=== PATIENT | female | born 1990 | race Caucasian/White ===

== ENCOUNTER 2023-06-14 21:31 | Emergency (ER) | payer MEDICARE, MEDICAID, SELFPAY ==
--- NOTE | ~2023-06-14 | CT_ITS ---
EXAMINATION: CT HEAD WITHOUT CONTRAST CT CERVICAL WITHOUT CONTRAST CLINICAL INFORMATION: Fall. Head strike. COMPARISON: None available. TECHNIQUE: Contiguous axial imaging was performed through the head and cervical spine without intravenous administration of contrast. Sagittal and coronal reformatted images also obtained. This CT examination was performed using dose optimization techniques as appropriate, variously including the following: *Automated exposure control *Adjustment of mA and/or kV according to patient size (this includes techniques or standardized protocols for targeted exams where dose is matched to indication/reason for exam; i.e. extremities or head) *Use of iterative reconstruction technique DLP: 1154 mGy-cm FINDINGS: A right CVP shunt catheter terminates in the region of the anterior right third ventricle. The right lateral ventricle is small in size. The left lateral ventricle appears to be within normal limits. The fourth ventricle is midline. The cortical sulci and basal cisterns are normally outlined. There is no acute territorial defect, hemorrhage or midline shift. The extra-axial spaces are unremarkable. Calvarium: Intact. Maxillofacial sinuses and mastoids: Clear as visualized. Cervical spine: There is mild reversal of the expected cervical spine curvature. There is mild C3-C4 to C6-C7 cervical disc degenerative change with mild loss of disc space, minimal endplate change and posterior osteophytes with mild diffuse facet osteoarthritic hypertrophic change with multilevel mild spinal canal narrowing. There is no fracture. The soft tissues are unremarkable. The visualized upper lung velazquez are clear. CT/CT cervical spine wo IV con IMPRESSION: No acute intracranial pathology. Mild cervical and facet degenerative change with mild reversal of the expected cervical spine curvature. No fracture seen.
[2023-06-14 22:28] VITALS: BP 146/73; PULSE 81; RESP 18; TEMP 36.8; O2SAT 100; BMI 37.8
--- NOTE | 2023-06-14 22:52 | ED.GENADULT ---
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 Patient states that she tripped and fell, hit her head on a door knob, and is now having a headache and dizziness. Patient denies any loss of consciousness, lightheadedness, abdominal pain, nausea, vomiting, fever, chills, blurry vision, double vision, loss of vision, chest pain, difficulty breathing, shortness of breath, back pain, night sweats, pain with urination, increased urinary frequency, increased urinary urgency, blood in her urine or stool, syncope or a near syncopal episode, bowel incontinence, bladder incontinence, bowel retention, bladder retention, or any other complaints at this time. Onset (ago): minute(s) Location: head Radiation: non-radiation Severity: mild Severity scale (1-10): 3 Quality: aching and dull Pain Consistency: constant Relieving factors: none Exacerbating factors: none Associated symptoms: denies other symptoms Treatments prior to arrival: none Related Data Allergies Allergy/AdvReac Type Severity Reaction Status Date / Time No Known Allergies Allergy Unverified 04/28/20 15:54 [No Known Allergies*] Review of Systems Constitutional: Constitutional: Reports no additional constitutional complaints, Denies chills, Denies fever(s), Reports headache(s) and Denies night sweats Eyes: Eyes: Reports no additional eye complaints, Denies blurry vision, Denies change in vision, Denies diplopia, Denies eye discharge, Denies loss of vision and Denies eye pain ENT: Reports dizziness and Reports headache(s) Cardiovascular: Cardiovascular: Reports no additional cardiovascular complaints, Denies chest pain, Denies lightheadedness, Denies Loss of Consciousness and Denies dyspnea Respiratory: Respiratory: Reports no additional respiratory complaints and Denies dyspnea Gastrointestinal: Gastrointestinal: Reports no additional gastrointestinal complaints, Denies abdominal pain, Denies melena, Denies hematochezia, Denies change in bowel habits and Denies change in stool character Genitourinary: Genitourinary: Denies hematuria, Denies urinary frequency, Denies dysuria, Denies urinary incontinence, Denies urinary hesitancy and Denies urinary urgency Musculoskeletal: Musculoskeletal: Reports no additional musculoskeletal complaints, Denies numbness and Denies tingling Neurologic: Reports dizziness, Reports headache(s), Denies loss of vision, Denies numbness and Denies tingling Psychiatric: Psychiatric: Reports no additional psychiatric complaints Endocrine: Endocrine: Reports no additional endocrine complaints Hematologic/Lymphatic: Hematologic/Lymphatic: Reports no additional hematologic/lymphatic complaints Allergic/Immunologic: Allergic/Immunologic: Reports no additional allergic/immunologic complaints PMFSH Past Medical History Attestation statement: The following information was validated with the patient. Source: old records reviewed and nursing notes reviewed Social History Social History Alcohol intake: current Alcohol intake frequency: holidays/special occasions only Smoked in Last 30 Days: Yes Use of substances other than those prescribed or required for medical reasons: No Advance Directives: No Advance Directives Information Provided: Yes Patient : No Physical Exam ED Vital Signs: Vital Signs - 24 hr 06/14/23 22:28 Temperature 98.2 F Pulse Rate 81 Respiratory Rate 18 Blood Pressure 146/73 H Pulse Oximetry 100 Oxygen Delivery Method Room Air BMI result Body Mass Index 37.8 Const General: cooperative, no acute distress, alert and awake Nutritional Appearance: well nourished Orientation/consciousness: patient oriented x3 Limitations: no limitations HENMT Other: 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 shunt felt along right scalp Head: Yes atraumatic Ears: hearing grossly normal bilaterally and external ears normal General nose exam: Normal external nose present, no nasal discharge noted and no epistaxis Face and sinus: Yes normal facial exam, No abrasion and No laceration Mouth: Normal oral and palatal mucosa present, no drooling and no muffled voice Eyes General: appearance normal, both eyes and all related structures Periorbital: periorbital findings normal Eyelids: Yes eyelids normal Conjunctivae: conjunctivae normal Pupils: Equal, round and reactive pupils present EOM: EOMs intact bilaterally Neck Neck: Yes normal visual inspection, Yes full ROM and Yes no lymphadenopathy Chest Chest palpation & inspection: normal inspection of the chest Resp Effort & Inspection: normal respiratory effort and able to speak in complete sentences GI Inspection: Yes normal to inspection Neuro General: patient oriented x3 and moves all extremities Cranial nerves: Yes Equal, round and reactive pupils present Cognition (Neuro): normal cognition Motor exam (neuro): 5/5 motor strength present throughout Sensory Exam: Normal double simultaneous stimulation for sensation Coordination: [id number] test normal Extrem General: Yes normal to inspection, Yes full ROM and Yes capillary refill normal Psych Appearance: grossly normal Mental Status: mental status grossly normal Affect: normal affect Attitude: cooperative Thought process: Normal thought process present Thought content: Normal thought content present Insight: Good insight present (Psych) Medical Decision Making Medical Decision Making MDM Narrative: Patient is a 32 year old assigned female at with a 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 Patient's physical exam was as noted in the physical exam portion of this note. Patient's head and c-spine CTs showed no acute process. I explained my physical exam findings as well as all test results to the patient. I answered all questions asked by the patient. I stressed the importance of the patient taking her medication as prescribed. I stressed the importance of the patient following up with her primary care provider and neurosurgeon. I stressed the importance of the patient returning to the emergency department immediately if her symptoms were to worsen or if she were to develop any dizziness, shortness of breath, difficulty breathing, chest pain, blurry vision, loss of vision, nausea, vomiting, abdominal pain, fever, chills, back pain, or any other complaints. Patient verbalized agreement and understanding with this treatment plan and discharge. Differential Diagnosis Differential Diagnoses: The differential diagnosis associated with the presentation includes Concussion Head injury Fall Independent Interpretation I performed an independent interpretation of an: CT Scan Interpretation: My interpretation is in agreement with the radiologist's impression of these imaging studies. EXAMINATION: CT HEAD WITHOUT CONTRAST CT CERVICAL WITHOUT CONTRAST CLINICAL INFORMATION: Fall. Head strike. COMPARISON: None available. TECHNIQUE: Contiguous axial imaging was performed through the head and cervical spine without intravenous administration of contrast. Sagittal and coronal reformatted images also obtained. This CT examination was performed using dose optimization techniques as appropriate, variously including the following: *Automated exposure control *Adjustment of mA and/or kV according to patient size (this includes techniques or standardized protocols for targeted exams where dose is matched to indication/reason for exam; i.e. extremities or head) *Use of iterative reconstruction technique DLP: 1154 mGy-cm FINDINGS: A right CVP shunt catheter terminates in the region of the anterior right third ventricle. The right lateral ventricle is small in size. The left lateral ventricle appears to be within normal limits. The fourth ventricle is midline. The cortical sulci and basal cisterns are normally outlined. There is no acute territorial defect, hemorrhage or midline shift. The extra-axial spaces are unremarkable. Calvarium: Intact. Maxillofacial sinuses and mastoids: Clear as visualized. Cervical spine: There is mild reversal of the expected cervical spine curvature. There is mild C3-C4 to C6-C7 cervical disc degenerative change with mild loss of disc space, minimal endplate change and posterior osteophytes with mild diffuse facet osteoarthritic hypertrophic change with multilevel mild spinal canal narrowing. There is no fracture. The soft tissues are unremarkable. The visualized upper lung velazquez are clear. CT/CT head/brain wo IV con IMPRESSION: No acute intracranial pathology. Mild cervical and facet degenerative change with mild reversal of the expected cervical spine curvature. No fracture seen. Dictated By: Skyler Avalos Signed By: Electronically signed by Skyler Avalos 06/15/23 0013 Radiology Impression Discussion of test interpretation with radiology: I have reviewed the radiologist's reading. Discharge Plan Discharge Clinical Impression: Concussion without loss of consciousness Patient Disposition: Home, Self-Care Instructions: Concussion (ED) Additional Instructions: Follow up with your primary care provider. Return to the emergency department immediately if your symptoms worsen or if you develop any dizziness, shortness of breath, difficulty breathing, chest pain, blurry vision, loss of vision, nausea, vomiting, abdominal pain, fever, chills, back pain, or any other complaints. Referrals: [facility] Family Medicine [Provider Group] (Call to establish and follow up with a primary care provider. If you already have a primary care provider, please follow up with them.) [facility] Primary Care, Zahra [Provider Group] (Call to establish and follow up with a primary care provider. If you already have a primary care provider, please follow up with them.) [facility] Primary Care,Mitzi [Provider Group] (Call to establish and follow up with a primary care provider. If you already have a primary care provider, please follow up with them.) Print Language: Khmer
== END 2023-06-15 01:05 | disposition home or self-care (01) ==
PROVIDERS: Emergency Provider Emergency Medicine
DX: S06.0X0A Concussion without loss of consciousness, initial encounter (principal); R51.9 Headache, unspecified; M54.2 Cervicalgia; W01.10XA Fall on same level from slipping, tripping and stumbling with subsequent striking against unspecified object, initial encounter; Y93.9 Activity, unspecified; Y92.9 Unspecified place or not applicable; Y99.9 Unspecified external cause status
CPT/HCPCS: 70450; 72125; 99284

== ENCOUNTER 2023-06-30 18:52 | Emergency (ER) | payer MEDICARE, MEDICAID, SELFPAY ==
[2023-06-30 19:56] VITALS: BP 130/82; PULSE 97; RESP 18; TEMP 36.9; O2SAT 99; BMI 37.1
[2023-06-30 23:05] VITALS: BP 117/65; PULSE 79; RESP 16; TEMP 36.7; O2SAT 99
--- NOTE | 2023-06-30 23:22 | PC.NURSE ---
assumed care of pt
--- NOTE | 2023-07-01 01:36 | ED.HA ---
HPI - Headache General Chief Complaint: Headache Stated Complaint: eye redness with blurry vision and headaches Time Seen by Provider: 06/30/23 23:01 Source: patient Mode of arrival: ambulatory History of Present Illness HPI Narrative: 32-year-old female who states that on she noticed that she had left eye redness, itchiness without purulence drainage and then states that it went away and then she noticed that she began having redness and itchiness on the right eye, she denies any eye infections at home, bought eyedrops but states that they have not been helping. Patient states that on Saturday evening she began having some blurry vision. Related Data Allergies Allergy/AdvReac Type Severity Reaction Status Date / Time No Known Allergies Allergy Verified 06/30/23 19:59 [No Known Allergies*] Review of Systems Review of Systems: Pertinent positives and negatives as stated in HPI PMFSH Past Medical History Source: nursing notes reviewed Social History Social History Alcohol intake: current Alcohol intake frequency: holidays/special occasions only Smoked in Last 30 Days: Yes Advance Directives: No Advance Directives Information Provided: Yes Physical Exam Vital Signs: Vital Signs: Last Vital Signs Temp 98.1 F 06/30/23 23:05 Pulse 79 06/30/23 23:05 Resp 16 06/30/23 23:05 BP 117/65 06/30/23 23:05 Pulse Ox 99 06/30/23 23:05 O2 Del Method Room Air 06/30/23 23:05 BMI result Body Mass Index 37.1 VITAL SIGNS: Reviewed. GENERAL: Well developed, well nourished, in no acute distress. HEAD: Normocephalic/atraumatic EYES: PERRLA, EOMI; IOP-OD- 20, IOP-OS-16 EARS: Ext canals without abnormality, TMs non-bulging and non-erythematous NOSE: Nares patent bilateral OROPHARYNX: no oral lesions noted, posterior pharynx clear and non-erythematous without noted tonsillar enlargement/erythema/exudates NECK: Supple, no adenopathy LUNGS: Normal breath sounds. No adventitious sounds or accessory muscle use. SpO2<99> CARDIOVASCULAR: Regular rate and rhythm without noted murmurs ABDOMEN: Soft, non-tender, non-distended with bowel sounds. MUSCULOSKELETAL: No tenderness, deformities, or effusions noted on gross inspection. EXTREMITIES: No cyanosis, clubbing or edema. SKIN: Inspection of the skin reveals no rashes NEUROLOGIC: Alert and oriented x 4. Strength and sensation to light touch were grossly intact x 4. Medical Decision Making Medical Decision Making [facility] Narrative: 32-year-old female with history of SOLID SURFACE FABRICATOR shunt, on review of recent history at this emergency room she was seen here after she sustained a fall and had a CT of the head and neck, CT scan did not identify any acute abnormalities associated with SOLID SURFACE FABRICATOR function patient had no visual issues at that time and was discharged. Patient recently moved here from [place] and states that she does take some medication for her headaches that was prescribed to her by her neurologist in [place], however there is no documentation of any prescriptions in the review of local pharmacy. Patient is unable to remember the name of the medication, she denies any fevers or chills. In addition, patient identifies that she has known mild papilledema, she does wear corrective lenses but she states that these are only for reading and that she does not have these glasses with her currently. There is no pain on EOMI, no nystagmus, no fixed midpoint pupils, bilateral eyes do demonstrate conjunctival injection of unclear significance. There is no noted purulence drainage, IOP he is although questionably elevated in the right eye likely consistent with her reports that she has known papilledema. Patient provided combination analgesics. Visual acuity did demonstrate decreased distance vision, no observed difficulty with ambulation. Will perform basic labs with inflammatory markers to include TSH level. Patient denies any interim traumatic events and most recent CT scan did not identify any abnormality in at this time I do not think repeat CT scan is necessitated. Will provider with referral to Dr. Bowers. Signed out to Dr Dean - Mary Lou to include inflammatory markers Differential Diagnosis Differential Diagnoses: The differential diagnosis associated with the presentation includes Please see the discussion above Admission/Observation Consideration of admission/observation: Escalation of care including admission/observation considered Please see the discussion above Discharge Plan Discharge Clinical Impression: Headache, Blurred vision, bilateral Patient Disposition: Still a Patient Instructions: General Headache (ED), Blurred Vision (ED) Referrals: Prasanth Bowers [Physician] -
[2023-07-01] MEDS: Acetaminophen 325 MG TABLET 975 MG PO (01:48)
[2023-07-01] MEDS: Ibuprofen 400 MG TABLET PO (01:48)
[2023-07-01 01:59] LABS: MANUAL DIFF FLAG NO
[2023-07-01 02:00] LABS: Basophils Percent Auto 0.3 % (0-2); Eosinophils Absolute Auto 0.3 X10*3/uL (0.0-0.4); Eosinophils Percent Auto 3.7 % (0-4); Hematocrit 38.1 % (37.0-47.0); Hemoglobin 12.1 g/dl (12.0-16.0); Imm Gran Abs Auto 0.03 X10*3/uL (0.00-0.03); Imm Gran Pct Auto 0.3 % (0.0-0.4); Lymphocytes Absolute Auto 2.9 X10*3/uL (1.2-4.9); Lymphocytes Percent Auto 31.8 % (20-40); Mean Corpuscular HGB Conc 31.8 g/dl (31.0-35.0); Mean Corpuscular Hemoglobin 25.3 pg (27.0-33.0); Mean Corpuscular Volume 79.7 fL (80.0-98.0); Mean Platelet Volume 9.9 fL (9.4-12.3); Monocytes Absolute Auto 0.7 X10*3/uL (0.1-1.2); Monocytes Percent Auto 7.3 % (2-11); Neutrophils Absolute Auto 5.1 x10*3/uL (2.0-8.3); Neutrophils Percent Auto 56.6 % (45-73); Platelet Count 374 X10*3/uL (160-400); Red Blood Count 4.78 X10*6/uL (4.20-5.50); White Blood Count 9.1 X10*3/uL (4.8-10.8)
[2023-07-01 02:02] VITALS: BP 119/77; PULSE 91; RESP 16; O2SAT 97
[2023-07-01 02:23] LABS: Alanine Aminotransferase 15 U/L (0-31); Albumin Level 3.8 g/dL (3.5-5.0); Alkaline Phosphatase 106 U/L (39-117); Anion Gap 11 (12-20); Aspartate Amino Transferase 15 U/L (5-31); Bilirubin Total 0.4 mg/dL (0.0-1.0); Blood Urea Nitrogen 8 mg/dL (9-16); C Reactive Protein 1.83 mg/dL (< or = 0.50); Calcium 8.7 mg/dL (8.4-10.2); Carbon Dioxide 23 mmol/L (22-29); Chloride 108 mmol/L (96-108); Creatinine Clr Calc Pharmacy 106.8; Estimated Glomerular Filt Rate > 60; Glucose Random 95 mg/dL (60-115); Potassium 3.9 mmol/L (3.3-5.1); Sodium 138 mmol/L (135-145); Total Protein 6.9 g/dL (6.5-8.0)
[2023-07-01 02:38] LABS: Erythrocyte Sedimentation Rate 11 MM/HR (0-20); TSH reflex Free T4 0.96 uIU/mL (0.32-4.0)
== END 2023-07-01 03:19 | disposition home or self-care (01) ==
PROVIDERS: Student in an Organized Health Care Education/Training Program; Emergency Provider Emergency Medicine
DX: R51.9 Headache, unspecified (principal); H53.8 Other visual disturbances; Z79.899 Other long term (current) drug therapy
CPT/HCPCS: 36415; 80053; 84443; 85025; 85652; 86140; 99284

== ENCOUNTER 2025-02-28 21:54 | Emergency (ER) | payer MEDICARE, MEDICAID, SELFPAY ==
--- NOTE | ~2025-02-28 | CT_ITS ---
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 Findings: No consolidation or effusion. The liver appears normal in size and contour. Ill-defined 1.6 cm low-attenuation structure identified within the right hepatic lobe on axial image number 27 of series 3 which is incompletely characterized on this examination. 1.9 cm low-attenuation right adrenal nodule, suggesting a right adrenal adenoma. The gallbladder and solid organs are otherwise within normal limits. No hydronephrosis or hydroureter. No bowel obstruction, pneumoperitoneum, or pneumatosis. Ventriculoperitoneal shunt catheter tubing partially visualized at the right anterior chest and abdominal wall. The catheter tubing terminates over the mid to lower aspect of the intra-abdominal compartment to the left of the midline. 2.6 cm low-attenuation structure identified of the right adnexal region, suggesting a right adnexal cyst. The bladder is collapsed, limiting its evaluation. Normal appendix. No acute fracture visualized. IMPRESSION: No acute inflammatory process identified within the abdomen or pelvis. 2.6 cm low-attenuation structure identified of the right adnexal region, suggesting a right adnexal cyst. Vague 1.6 cm low-attenuation structure identified within the right hepatic lobe which is incompletely characterized on this examination. This is statistically likely to represent a benign finding. May consider nonemergent liver protocol multiphase contrast-enhanced abdomen MRI examination for more complete evaluation as clinically directed. This document has been electronically signed by: Soy Govea MD on 03/01/2025 01:59:22
[2025-02-28 21:57] VITALS: BP 119/87; PULSE 109; RESP 20; TEMP 36.5; O2SAT 95; BMI 39.8
[2025-02-28 22:13] LABS: MANUAL DIFF FLAG NO
[2025-02-28 22:14] LABS: Hematocrit 37.7 % (37.0-47.0); Hemoglobin 12.2 g/dl (12.0-16.0); Imm Gran Abs Auto 0.05 X10*3/uL (0.00-0.03); Imm Gran Pct Auto 0.4 % (0.0-0.4); Lymphocytes Absolute Auto 2.6 X10*3/uL (1.2-4.9); Mean Corpuscular HGB Conc 32.4 g/dl (31.0-35.0); Mean Corpuscular Hemoglobin 24.3 pg (27.0-33.0); Mean Corpuscular Volume 75.0 fL (80.0-98.0); NRBC Abs Auto 0.000 X10*3/uL (0.0-0.012); NRBC Pct Auto 0.0 /100WBC (0.0-0.2); Platelet Count 424 X10*3/uL (160-400); Red Blood Count 5.03 X10*6/uL (4.20-5.50); White Blood Count 12.6 X10*3/uL (4.8-10.8)
--- OUTSIDE RECORDS SUMMARY | 2025-02-28 22:22 | XMS_ITS | Data Portability ---
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 Plan of Treatment Reminders Order Date Submit Date Provider Last Modified By Organization Details Last Modified Time Details Appointments None recorded. Lab None recorded. Referral None recorded. Procedures None recorded. Surgeries None recorded. Imaging None recorded. Medication Orders acetazolami de 250 mg tablet 2022 023 [email or web address] [id number], [address] [place], [address], 4 08:27:16 Patient TargetsNo targets recorded. Patient InstructionsNo instructions recorded. Reason for Referral None Reported. Medical Equipment None Reported. Medications Name Sig Start Date Stop Date Status Note LastModified by Organization Details LastModified Time acetazolamide 250 mg tablet Take 1 tablet twice a day by oral route for 30 days. 2022 active Not Available Not Available Not Avai lable Vitals Date Recorded Body weight Heart rate Respiratory rate Oxygen saturation Oxygen saturation in Arterial blood by Pulse oximetry Systolic And Diastolic Provider Name and Address Organization Details Last Updated DateTime 3 18153.3 7 g 82 /min 16 /min 99 % 99 % 130/100 mm[Hg] Jaclyn Fung [facility] 3 11:00:17 Social History None recorded. Functional Status None recorded. Mental Status None recorded. Family History Nothing Reported. Medical History No medical history recorded. Gynecological HistoryNo gynecological history recorded. Obstetrics History GPAL:G 0 P 0 0 0 0 Past Encounters Encounter ID Performer Location Encounter Start Date Encounter Closed Date Diagnosis/Indication Diagnosis SNOMED-CT Code Diagnosis ICD10 Code Diagnosis Note [id number] EITAN ROMERO MD [facility]rology [facility] [address] [place] [address] [place] [address] 05/01/2023 10:36:20 05/01/2023 10:59:42 Benign intracranial hypertension 80030706 G93.2 Health Concerns Section Related Observation LastModified by Organization Detai ls LastModified Time None Recorded Concern Status LastModified by Organization Details LastModified Time None Recorded Advance Directives Directive None Recorded Payers Insurance Date Sequence Insurance Name Policy Number Policy Gaitan Covered Member ID Gaitan Member ID Guarantor Name 05/01/2023 1 *SELF PAY* Ma ashley Garg 05/28/2023 2 [id number] Tanisha Garg 06/22/2023 1 [place] Tanisha Garg [id number] Tanisha Garg Notes Date Note Type Note Provider Name and Address Organization Details Recorded Time 3 text/html This 32-year-old patient has been diagnosed with pseudotumor cerebri. She started complaining of headaches at age 29 and then started losing vision in one eye, I believe the right. She saw an compliance associate who advised her to see a neurologist . She had a lumbar puncture done. The results are not available to me at this time. She was placed on medication but ultimately had a ventriculoperitoneal shunt placed. After the shunt was placed her headache started to get better Sometime later, her headaches started returning. They found that her shunt was blocked. The shunt was redone in October or November 2021 and her headaches got better but never really completely went away. Now her headaches have become worse. This worsening started about 2 months ago. She now has headaches on the right side. They feel like a pressure and like a pounding and the last all day. She sees spots in front of her eyes at times but does not complain of double vision and does not complain of tinnitus. She was seen in our Emergency Room because of her headaches. She had a head CT scan done on 02/16/2023. I am unable to pull up the pictures but it is reported as the [employer] shunt is properly positioned with the shunt tip in the right lateral ventricle . She was discharged from the emergency room on Fiorinal. Fiorinal does relieve her headaches. Past health: Negative for diabetes mellitus, hypertension and thyroid disease. Personal health: Cigarette smoker. Very occasional alcohol use. Jaclyn Fung [facility] 05/01/2023 14:12:51 OBGyn Episode No OBEpisode recorded.
--- OUTSIDE RECORDS SUMMARY | 2025-02-28 22:22 | XMS_ITS | Clinical Summary ---
Author Organization [facility] [address] [place] [address] [place] [phone] Phone Care Team Providers Care Travel Counselor Name Role Phone Jann Agrawal MD Primary Care Provider Allergies No known active allergies Medications ibuprofen (ADVIL,MOTRIN) 600 mg tablet Take 600 mg by mouth every 6 hours as needed. Active UNABLE TO FIND Activ e acetaminophen (TYLENOL) 325 mg tablet Take 2 Tablets by mouth every 6 hours as needed. Active cholecalciferol (VITAMIN D-3) 50 mcg (2,000 unit) capsule TAKE 1 CAPSULE BY MOUTH DAILY Active docusate sodium (COLACE) 100 mg capsule Take 1 Capsule by mouth 2 times daily. Active methocarbamoL (ROBAXIN) 750 mg tablet TAKE 1 TABLET BY MOUTH 4 TIMES A DAY NEEDED FOR MUSCLE SPASMS Active naproxen (NAPROSYN) 500 mg tablet Take 1 Tab by mouth 2 times daily (with meals). Active ondansetron (ZOFRAN) 4 mg tablet TK 1 T PO TID PRF NAUSEA Active QUEtiapine (SEROquel) 25 mg tablet Take 1 Tab by mouth 2 times daily for 30 days. Active topiramate (TOPAMAX) 25 mg tablet TAKE 1 TABLET BY MOUTH EVERY DAY FOR 7 DAYS, THEN INCREASE AND TAKE 1 TABLET TWO TIMES A DAY EVERY DAY. 024 Active budesonide-form oteroL (SYMBICORT) 80-4.5 mcg/actuation inhaler Inhale 2 puffs by mouth 2 (two) times a day. Rinse mouth with water after use to reduce aftertaste and incidence of candidiasis. Do not swallow. 13 g 2 Active albuterol 2.5 mg /3 mL (0.083 %) nebulizer solutionIndicat ions:Mild intermittent asthma with acute exacerbation Take 3 mL (2.5 mg total) by nebulization every 6 (six) hours if needed for wheezing or shortness of breath. 1080 mL 1 Active loratadine (CLARITIN) 10 mg tablet Take 1 tablet (10 mg total) by mouth 1 (one) time each day. 90 each 1 025 2024 Active sodium chloride (OCEAN) 0.65 % nasal spray Administer 1 spray into each nostril if needed for congestion. 15 mL 3 025 2025 Active budesonide-form oteroL (SYMBICORT) 160-4.5 mcg/actuation inhaler Inhale 2 puffs by mouth 2 (two) times a day. Rinse mouth with water after use to reduce aftertaste and incidence of candidiasis. Do not swallow. 3 each 3 025 2025 Active inhalational spacing device (Aerochamber MV) inhaler Use as instructed 1 each 025 2025 Active albuterol HFA (Proventil HFA) 90 mcg/actuation inhaler Inhale 2 puffs by mouth every 4 (four) hours if needed for wheezing or shortness of breath. 6.7 g 2 025 2025 Active hydrOXYzine HCL (ATARAX) 25 mg tabletIndicatio ns:Anxiety Take 1 tablet (25 mg total) by mouth every 6 (six) hours if needed for anxiety. 90 each 025 2024 Active meclizine (ANTIVERT) 12.5 mg tablet Take 1 tablet (12.5 mg total) by mouth 3 (three) times a day if needed for dizziness. 90 tablet Active SUMAtriptan (IMITREX) 25 mg tablet Take 1 tablet (25 mg total) by mouth 1 (one) time if needed for migraine. May repeat dose once in 2 hours if no relief. Do not exceed 2 doses in 24 hours. 28 tablet 1 025 2024 Active fluticasone propionate (FLONASE) 50 mcg/actuation nasal spray Administer 2 sprays into each nostril 1 (one) time each day. Shake gently. Before first use, prime pump. After use, clean tip and replace cap. 16 g 2 025 2025 Active sodium chloride (OCEAN) 0.65 % nasal spray Administer 1 spray into each nostril if needed for congestion. 15 mL 11 025 2025 Active loratadine (CLARITIN) 10 mg tablet Take 1 tablet (10 mg total) by mouth 1 (one) time each day if needed for allergies. 90 each 025 2024 Active fluticasone propion-salmete roL (ADVAIR DISKUS) 100-50 mcg/dose diskus inhaler Inhale 1 Puff into the lungs 2 times daily. 2024 Discontinued montelukast (SINGULAIR) 10 mg tablet Take 1 Tab by mouth at bedtime. 2024 Discontinued nicotine (NICODERM CQ) 14 mg/[address] 1 Patch onto the skin every 24 hours for [address] patch daily to bare skin. Alternate arms to avoid skin irritation. Remove old patch prior to placing new. 2024 Discontinued omeprazole (PriLOSEC) [address] capsule Take 1 Cap by mouth daily for 360 days. 2024 Discontinued SUMAtriptan (IMITREX) 25 mg tablet 2024 Discontinued(R eorder) albuterol HFA (Proventil HFA) 90 mcg/actuation inhaler Inhale 2 puffs by mouth every 4 (four) hours if needed for wheezing or shortness of breath. 6.7 g 2 024 2024 Discontinued hydrOXYzine HCL (ATARAX) 25 mg tablet Take 1 tablet (25 mg total) by mouth every 6 (six) hours if needed for anxiety. 90 each 024 2024 Discontinued(R eorder) predniSONE (DELTASONE) 20 mg tablet Take 60 mg PO daily for 3 days, then take 40 mg PO daily for 3 days, then 20 mg PO daily for 3 days, then stop 18 tablet 025 2024 Discontinued albuterol HFA (Proventil HFA) 90 mcg/actuation inhaler Inhale 2 puffs by mouth every 4 (four) hours if needed for wheezing or shortness of breath. 6.7 g 2 025 2024 Discontinued(R eorder) fluticasone propionate (FLONASE) 50 mcg/actuation nasal spray Administer 2 sprays into each nostril 1 (one) time each day. Shake gently. Before first use, prime pump. After use, clean tip and replace cap. 16 g 2 025 2024 Discontinued albuterol HFA (PROAIR HFA ; PROVENTIL HFA ; VENTOLIN HFA) 90 mcg/actuation inhaler Inhale 2 puffs by mouth every 6 (six) hours if needed for wheezing or shortness of breath. 3 each 3 025 2024 Discontinued Active Problems Problem Noted Date Diagnosed Date Anxiety 02/16/2025 Mild intermittent asthma without complication Dizziness 02/16/2025 Pressure in head 02/16/2025 Dysphagia 02/16/2025 Gastroesophageal reflux disease 02/16/2025 Benign paroxysmal positional vertigo 02/16/2025 Tinnitus, left ear 02/16/2025 History of ventriculoperitoneal shunting 025 At high risk for falls 02/16/2025 Disorder of maxillary sinus 02/16/2025 Depression 04/07/2020 Auditory hallucination 04/07/2020 Visual hallucination 04/07/2020 Mild persistent asthma with acute exacerbation 0 09/02/2019 Diffuse abdominal pain 12/13/2017 Hematochezia 12/13/2017 Nausea and vomiting 12/13/2017 Encounters Date Type Department Care Team Description 02/17/2025 2:00 PM EDT - 02/17/2025 11:59 PM EDT Hospital Encounter CT Scan [address] [phone] Disorder of maxillary sinus; Dizziness; Pressure in head Discharge Disposition: Home or Self Care 02/16/2025 1:00 PM EDT Office Visit Adult Medicine [address], [place] [phone] Jann Agrawal MD Mild intermittent asthma without complication (Primary Dx); Disorder of maxillary sinus; At high risk for falls; History of ventriculoperitoneal shunting; Anxiety; Dizziness; Pressure in head; Tinnitus, left ear; Benign paroxysmal positional vertigo, unspecified laterality; Dysphagia, unspecified type; Nonintractable headache, unspecified chronicity pattern, unspecified headache type; Chronic sinusitis, unspecified location 02/05/[address] [phone] Saida Du MD DME request 01/12/[address] [phone] Stacie Gutierrez [place] Hospital Follow-up 01/11/2025 2:30 PM EDT Office Visit [address] [phone] Saida Du MD LUIS FERNANDO (obstructive sleep apnea) (Primary Dx); Moderate persistent asthma, unspecified whether complicated; Ex-smoker; Obesity (BMI 35.0-39.9 without comorbidity); Other fatigue; Weight gain 01/11/[address] [phone] Anais Hodge [place] 01/08/2025 5:41 PM EDT - 01/08/2025 9:00 PM EDT Emergency [facility] Emergency [address] [place] [phone] Sherif Fall MD Vertigo (Primary Dx); Bad headache; Facial paresthesia Discharge Disposition: Home or Self Care 12/21/[address] [phone] Saida Du MD Sleep Study from Last 3 Months Surgical History Surgery Date Site/Laterality Comments SECTION PROCEDURE: CT DELIVERY ONLY HEMORRHOID SURGERY PROCEDURE: CT INCISION THROMBOSED HEMORRHOID EXTERNAL OTHER SURGICAL HISTORY PROCEDURE: CT CRANIOPLASTY SKULL DEFECT REPARATIVE BRAIN SURG; COMMENT: AV shunt Medical History Medical History Date Comments Mild persistent asthma DX:Mild p ersistent asthma Hydrocephaly (CMS/HCC V24, CMS/HCC V28) DX:Hydrocephaly (HCC); COMMENT: Papiledema Family History Medical History Relation Name Comments Breast cancer Aunt mat Asthma Father Asthma Maternal Grandmother COPD Maternal Grandmother smoking Hypertension Mother Uterine cancer Other 1 Cervical cancer Other 2 Asthma Paternal Grandmother Lung cancer Uncle mom's uncle-smo ker Colon cancer Neg Hx Ovarian cancer Neg Hx Prostate cancer Neg Hx Relation Name Status Comments Aunt mat Father Alive Maternal Grandmother Mother Alive Other 1 Other 2 Paternal Grandmother Uncle Social History Tobacco Use Types Packs/Day Years Used Date Smoking Tobacco: Every Day Cigarettes Last attempted to quit: 08/12/2019 Passive Smoke Exposure: Never Smokeless Tobacco: Never Tobacco Cessation:Ready to Q uit: Not Asked; Counseling Given: Not Answered Alcohol Use Standard Drinks/Week Comments Not Currently 0 (1 standard drink = 0.6 oz pur e alcohol) Comments No Sex and Gender Information Value Date Recorded Sex Assigned at Not on file Legal Sex Female 12:59 AM EST Gender Identity Not on file Sexual Orientation Not on file Obstetrics History Para Term AB IAB SAB Ectopic Multiple Livin g Live Births 3 3 2 1 0 0 0 0 0 3 3 Date Outcome GA Total Labor Labor/2nd/3rd Weight Sex Type Anes PTL Bertha A1 A5 Name Clin 12/08 992 g (35 oz) F CS-LT ranv Living Jenniffer 12/21 Term 2920 g (103 oz) F CS-LT ranv Y Living Ashley 02/09 Term 3062 g (108 oz) M CS-LT ranv Living Lawrence Last Filed Vital Signs Vital Sign Reading Time Taken Comments Blood Pressure 122/57 02/16/2025 12:11 PM EDT Pulse 98 02/16/2025 12:11 PM EDT Temperature 36.1 C (96.9 F) 02/16/2025 12:11 PM EDT Respiratory Rate 20 02/16/2025 12:11 PM EDT Oxygen Saturation 100% 01/11/2025 2:37 PM EDT Inhaled Oxygen Concentration - - Weight 92.5 kg (204 lb) 02/16/2025 12:11 PM EDT Height 152.4 cm (5') 02/16/2025 12:11 PM EDT Body Mass Index 39.84 02/16/2025 12:11 PM EDT Plan of Treatment Upcoming Encounters Date Type Department Care Team (Late st Contact Info) Description 03/16/2025 10:45 AM EDT Appointment Radiology Department [address] [phone] 03/22/2025 2:45 PM EDT Office Visit Pulmonolgy - [place] [address] [phone] Saida Du MD [address] [address] 05/25/2025 10:45 AM EDT Appointment [facility] Xray [address] [place] [phone] 06/04/2025 9:30 AM EDT Office Visit Adult Medicine [address] [phone] Jann Agrawal MD [address] [place], [place] 12/09/2025 3:00 PM EDT Office Visit Adult [address] [phone] Jann Agrawal MD [address] [place] [address] Health Maintenance Due Date Last Done Comments COVID-19 Vaccine (#1) 1994 DTaP,Tdap,and Td Vaccines (1 - Tdap) 2008 Hepatitis B Vaccines (1 of 3 - 19+ 3-dose series) 2008 Pneumococcal Vaccine: Pediatrics (0 to 5 Years) and At-Risk Patients (6 to 49 Years) (1 of 2 - PCV) 2008 HIV Screening 09/10/2023 Medicare Annual Wellness Visit 09/10/2023 Social Influencers of Health Screening 09/10/2023 Depression Screening 08/12/2024 Influenza Vaccine (#1) 2025 4, 11/09/2023 Cervical Cancer Screening: HPV 11/14/2028 11/15/2023 Cholesterol Screening (Lipid Panel) 08/27/2029 08/27/2024 Hepatitis C Screening Completed 09/02/2018 HIB Vaccines Aged Out No longer eligi ble based on patient's age to complete this topic HPV Vaccines Aged Out No longer eligi ble based on patient's age to complete this topic Hepatitis A Vaccines Aged Out No long er eligible based on patient's age to complete this topic IPV Vaccines Aged Out No longer eligi ble based on patient's age to complete this topic MMR Vaccines Aged Out No longer eligi ble based on patient's age to complete this topic Meningococcal ACWY Vaccine Aged Out N o longer eligible based on patient's age to complete this topic Meningococcal B Vaccine Aged Out No l onger eligible based on patient's age to complete this topic RSV Immunization Patients Under 20 months Aged Out No longer eligible b ased on patient's age to complete this topic Varicella Vaccines Aged Out No longer eligible based on patient's age to complete this topic Procedures Procedure Name Priority Date/Time Associated Diagnosis Comments CT SINUSES WO CONTRAST STAT 2:16 PM EDT Disorder of maxillary sinus Dizziness Pressure in head ECG ANNOTATED 01/10/2025 POC , URINE DIAGNOSTIC STAT 01/08/2025 7:[address] URINE CULTURE TUBE STAT 01/09/20 6:58 PM EDT URINALYSIS WITH REFLEX MICROSCOPIC AND CULTURE STAT 01/08/2025 6:58 PM EDT URINALYSIS WITH REFLEX MICROSCOPIC AND CULTURE STAT 01/08/2025 6:58 PM EDT ECG 12-LEAD STAT 01/08/2025 6:05 PM EDT CBC WITH AUTO DIFFERENTIAL STAT 01/08/2025 5:59 PM EDT MAGNESIUM STAT 01/08/2025 5:59 PM EDT BASIC METABOLIC PANEL STAT 01/08/2025 5:59 PM EDT CBC AND DIFFERENTIAL STAT 01/08/2025 5:59 PM EDT POLYSOMNOGRAPHY Routine 12/21/2024 4:25 PM EDT Apnea LIPID PANEL WITH REFLEX TO DIRECT LDL Routine 08/27/2024 10:48 AM EST Class 2 obesity due to excess calories without serious comorbidity with body mass index (BMI) of 39.0 to 39.9 in adult HM HPV Routine 11/15/2023 HEPATITIS C SCREENING Routine 09/02/2018 from Last 3 Months or Most Recently Relevant to Health Maintenance Results * CT Sinuses wo Contrast (02/17/2025 2:16 PM EDT) Anatomical Region Laterality Modality Head and Neck Computed Tomogra phy 02/17/2025 2:26 PM EDT Impressions 02/17/2025 3:01 PM EDT Moderate chronic sinusitis as described. The ostiomeatal units are occluded bilaterally. AP shunt catheter, partially visualized. Asymmetry of the lateral ventricles which has been described on outside head CT's. -------- FINAL REPORT -------- Dictated By: Karoline Monsivais Dictated Date: 02/17/2025 14:26 ET Assigned Physician: Karoline Monsivais Reviewed and Electronically Signed By: Karoline Monsivais Signed Date: 02/17/2025 15:01 ET Workstation ID: [id number] Transcribed By: Self Edit Transcribed Date: 02/17/2025 14:39 ET Narrative 02/17/2025 3:[address] SINUSES WO CONTRAST HISTORY: Headache pressure. Dizziness. Left maxillary sinus secretions/mucosal thickening. Could be due to sinusitis. TECHNIQUE: Sequential axial sections were obtained through the paranasal sinuses without intravenous contrast. Reformatted coronal images were obtained. PRIORS: None. FINDINGS: There is mild nasal septal deviation toward the left. There are retention cysts of the maxillary sinuses bilaterally. There is moderate membrane thickening of the ethmoid air cells. There are small retention cysts in the left side of the sphenoid sinus. There is mild membrane thickening of the floor of the right frontal sinus. The left frontal sinus is clear. The mastoid air cells are clear. The osteomeatal units are occluded with soft tissue density bilaterally. The sphenoethmoidal recesses are occluded. There is no obvious destruction of the bony margins of the paranasal sinuses. No discrete soft tissue masses are seen. The visualized orbits and contents are unremarkable. There is a partially visualized AP shunt in the brain. There is asymmetry of the ventricles with the right frontal horn and right occipital horn not distended. Asymmetry of the lateral ventricles was reported on dictated report from outside head CT on 01/07/2025. Procedure Note Karoline Monsivais MD - 02/17/2025 CT SINUSES WO CONTRAST HISTORY: Headache pressure. Dizziness. Left maxillary sinussecretions/mucosal thickening. Could be due to sinusitis. TECHNIQUE: Sequential axial sections were obtained through the paranasalsinuses without intravenous contrast. Reformatted coronal images wereobtained. PRIORS: None. FINDINGS: There is mild nasal septal deviation toward the left. There are retentioncysts of the maxillary sinuses bilaterally. There is moderate membranethickening of the ethmoid air cells. There are small retention cysts inthe left side of the sphenoid sinus. There is mild membrane thickening ofthe floor of the right frontal sinus. The left frontal sinus is clear. Themastoid air cells are clear. The osteomeatal units are occluded with softtissue density bilaterally. The sphenoethmoidal recesses are occluded.There is no obvious destruction of the bony margins of the paranasalsinuses. No discrete soft tissue masses are seen. The visualized orbits and contents are unremarkable. There is a partially visualized AP shunt in the brain. There is asymmetryof the ventricles with the right frontal horn and right occipital horn notdistended. Asymmetry of the lateral ventricles was reported on dictatedreport from outside head CT on 01/07/2025. IMPRESSION: Moderate chronic sinusitis as described. The ostiomeatal units areoccluded bilaterally. AP shunt catheter, partially visualized. Asymmetry of the lateralventricles which has been described on outside head CT's. -------- FINAL REPORT -------- Dictated By: Karoline Monsivais Dictated Date: 02/17/2025 14:26 ET Assigned Physician: Karoline Monsivais Reviewed and Electronically Signed By: Karoline Monsivais Signed Date: 02/17/2025 15:01 ET Workstation ID: [id number] Transcribed By: Self Edit Transcribed Date: 02/17/2025 14:39 ET Jann Agrawal MD IMG CT PROCEDURES Final Res ult * ECG-Annotated (01/10/2025) Provider Onbase ECG ORDERABLES Final Result * POC , urine manually resulted (01/08/2025 7:08 PM EDT) [facility] HCG, Ur POC Negative Negative POC hCG Int QC Pass? Yes Yes Urine Urine specimen obtained by clean catch procedure / Unknown 01/08/2025 7:08 PM EDT Sherif Fall MD POINT OF CARE TEST ENTER/ROXANNA T ORDERABLES Final Result * (ABNORMAL) Urinalysis with reflex microscopic and culture (01/08/2025 6:58 PM EDT) [facility] Specific [place] Urine 1.017 1.003 - 1.030 LAB URINALYSIS - AUTOMATED METHOD 01/08/2025 7:21 PM EDT [facility] pH, Urine 7.0 5.0 - 8.0 pH LAB URINALYSIS - AUTOMATED METHOD 01/08/2025 7:21 PM EDT [facility] Leukocytes, Urine Negative Negative LAB URINALYSIS - AUTOMATED METHOD 01/08/2025 7:21 PM EDT [facility] Nitrite, Urine Negative Negative LAB URINALYSIS - AUTOMATED METHOD 01/08/2025 7:21 PM [facility] Protein, Urine Negative <=Trace mg/dL LAB URINALYSIS - AUTOMATED METHOD 01/08/2025 7:21 PM [facility] Glucose, Urine Negative Negative mg/dL LAB URINALYSIS - AUTOMATED METHOD 01/08/2025 7:21 PM [facility] Ketones, Urine Negative Negative mg/dL LAB URINALYSIS - AUTOMATED METHOD 01/08/2025 7:21 PM [facility] Urobilinogen , Urine 1.0 0.2 - 1.0 mg/dL LAB URINALYSIS - AUTOMATED METHOD 01/08/2025 7:21 PM [facility] Bilirubin, Urine Negative Negative LAB URINALYSIS - AUTOMATED METHOD 01/08/2025 7:21 PM [facility] Blood, Urine Moderate(A) Negative LAB URINALYSIS - AUTOMATED METHOD 01/08/2025 7:21 PM [facility] RBC, Urine 2.7 0 - 4 /HPF LAB URINALYSIS - AUTOMATED METHOD 01/08/2025 7:21 PM [facility] WBC, Urine 1.1 0 - 4 /HPF LAB URINALYSIS - AUTOMATED METHOD 01/08/2025 7:21 PM [facility] Squamous Epithelial, Urine 77(H) 0 - 60 /LPF LAB URINALYSIS - AUTOMATED METHOD 01/08/2025 7:21 PM [facility] Bacteria, Urine Negative Negative /HPF LAB URINALYSIS - AUTOMATED METHOD 01/08/2025 7:21 PM [facility] Hyaline Casts, Urine 0.8 0 - 3 /LPF LAB URINALYSIS - AUTOMATED METHOD 01/08/2025 7:21 PM [facility] Urine Urine specimen obtained by clean catch procedure / Unknown Non-blood Collection / Unknown 01/08/2025 6:58 PM EDT 01/08/2025 7:02 PM EDT Sherif Fall MD LAB URINE ORDERABLES Final R esult Performing Organization Address City/[facility]/ZIP Co de Phone Number [facility] [address] [place] [address], [place] [phone] * Lane urine culture tube (01/08/2025 6:58 PM EDT) [facility] Extra Tube Hold for add-ons. 01/08/2025 9:01 PM EDT [facility] Comment:Auto resulted. Urine Urine specimen obtained by clean catch procedure / Unknown Non-blood Collection / Unknown 01/08/2025 6:58 PM EDT 01/08/2025 7:02 PM EDT Sherif Fall MD LAB URINE ORDERABLES Final R esult Performing Organization Address [facility] Co de Phone Number [facility] [address] [place] [address], [place] [phone] * ECG 12 lead (01/08/2025 6:05 PM EDT) [facility] Ventricular Rate ECG 94 BPM GEMUSE Atrial Rate 94 BPM GEMUSE P-R Interval 172 ms GEMUSE QRS Duration 94 ms GEMUSE Q-T Interval 350 ms GEMUSE QTc 437 ms GEMUSE P Wave [place] 41 degrees GEMUSE R [place] 52 degrees GEMUSE T [place] 28 degrees GEMUSE ECG Interpretation Normal sinus rhythm Cannot rule out Anterior infarct (cited on or before 31-AUG-2019) Abnormal ECG When compared with ECG of 31-AUG-2019 20:25, Questionable change in initial forces of Anterior leads Nonspecific T wave abnormality has replaced inverted T waves in Inferior leads Confirmed by MD John, Ramu ([id number]) on 01/09/2025 7:51:50 AM GEMUSE 01/08/2025 6:05 PM EDT 01/09/2025 7:51 AM EDT us Sherif Fall MD ECG ORDERABLES Final Result GEMUSE * (ABNORMAL) CBC auto differential (01/08/2025 5:59 PM EDT) [facility] Signature WBC 11.0(H) 4.8 - 10.8 K/mcL LAB HEMETOLOGY METHOD 01/08/2025 6:41 PM EDT [facility] RBC 5.20(H) 3.80 - 4.80 M/mcL LAB HEMETOLOGY METHOD 01/08/2025 6:41 PM EDT [facility] Hemoglobin 12.9 11.5 - 16.0 g/dL LAB HEMETOLOGY METHOD 01/08[facility]2025 6[facility] Hematocrit 40.6 35.0 - 47.0 % LAB HEMETOLOGY METHOD 01/08/2025 6:41 [facility] MCV 77.8(L) 79.0 - 98.0 FL LAB HEMETOLOGY METHOD 01/08/2025 6:41 [facility] MCH 24.7(L) 27.0 - 32.0 pcg LAB HEMETOLOGY METHOD 01/08/2025 6:41 [facility] MCHC 31.8(L) 32.0 - 37.0 g/dL LAB HEMETOLOGY METHOD 01/08/2025 6:41 [facility] RDW 14.7 11.0 - 15.0 % LAB HEMETOLOGY METHOD 01/08/2025 6:41 PM [facility] Platelets 415(H) 130 - 400 K/mcL LAB HEMETOLOGY METHOD 01/08/2025 6:41 PM [facility] MPV 9.9 7.0 - 11.0 FL LAB HEMETOLOGY METHOD 01/08/2025 6:41 [facility] NRBC 0.0 <1.0 % LAB HEMETOLOGY METHOD 01/08/2025 6:41 PM [facility] NRBC Absolute 0.00 <0.10 K/mcL LAB HEMETOLOGY METHOD 01/08/2025 6:41 PM [facility] Neutrophils Relative 71.3 % LAB HEMETOLOGY METHOD 01/08/2025 6:41 PM [facility] Lymphocytes Relative 20.6 % LAB HEMETOLOGY METHOD 01/08/2025 6:41 PM [facility] Monocytes Relative 4.9 % LAB HEMETOLOGY METHOD 01/08/2025 6:41 PM [facility] Eosinophils Relative 2.2 % LAB HEMETOLOGY METHOD 01/08/2025 6:41 PM [facility] Basophils Relative 0.5 % LAB HEMETOLOGY METHOD 01/08/2025 6:41 PM [facility] Immature Granulocytes Relative 0.5 % LAB HEMETOLOGY METHOD 01/08/2025 6:41 PM [facility] Neutrophils Absolute 7.82(H) 1.50 - 7.00 K/mcL LAB HEMETOLOGY METHOD 01/08/2025 6:41 PM [facility] Lymphocytes Absolute 2.26 1.00 - 5.00 K/mcL LAB HEMETOLOGY METHOD 01/08/2025 6:41 PM [facility] Monocytes Absolute 0.54 0.20 - 1.00 K/mcL LAB HEMETOLOGY METHOD 01/08/2025 6:41 PM [facility] Eosinophils Absolute 0.24 0.00 - 0.50 K/mcL LAB HEMETOLOGY METHOD 01/08/2025 6:41 PM [facility] Basophils Absolute 0.05 0.00 - 0.20 K/mcL LAB HEMETOLOGY METHOD 01/08/2025 6:41 PM EDT [facility] Immature Granulocytes Absolute 0.05(H) 0.00 - 0.03 K/mcL LAB HEMETOLOGY METHOD 01/08/2025 6:41 PM EDT [facility] Blood Venous blood specimen / Unknown Venipuncture / Unknown 01/08/2025 5:59 PM EDT 01/08/2025 6:35 PM EDT us Sherif Fall MD LAB BLOOD ORDERABLES Final R esult Performing Organization Address City/[facility]/ZIP Co de Phone Number [facility] [address] [place] [address], [place] [phone] * Magnesium (01/08/2025 5:59 PM EDT) Magnesium 2.2 1.9 - 2.6 mg/dL LAB CHEMISTRY METHOD 01/08/2025 7:01 PM EDT [facility] Blood Venous blood specimen / Unknown Venipuncture / Unknown 01/08/2025 5:59 PM EDT 01/08/2025 6:35 PM EDT us Sherif Fall MD LAB BLOOD ORDERABLES Final R esult Performing Organization Address City/[facility]/ZIP Co de Phone Number [facility] [address] [place] [address], [place] [phone] * (ABNORMAL) Basic metabolic panel (01/08/2025 5:59 PM EDT) Sodium 136 133 - 145 mmol/L LAB CHEMISTRY METHOD 01/08/2025 7:01 PM EDT [facility] Potassium 4.0 3.5 - 5.5 mmol/L LAB CHEMISTRY METHOD 01/08/2025 7:01 PM EDT [facility] Comment:Hemolysis present Chloride 111(H) 96 - 110 mmol/L LAB CHEMISTRY METHOD 01/08/2025 7:01 PM EDT [facility] CO2 18(L) 21 - 32 mmol/L LAB CHEMISTRY METHOD 01/08/2025 7:01 PM [facility] Anion Gap 7 3 - 11 LAB CHEMISTRY METHOD 01/08/2025 7:01 PM [facility] Glucose 135(H) 70 - 100 mg/dL LAB CHEMISTRY METHOD [facility] BUN 7 5 - 25 mg/dL LAB CHEMISTRY METHOD 01/08/2025 7:01 PM [facility] Creatinine 0.87 0.50 - 1.10 mg/dL LAB CHEMISTRY METHOD 01/08/2025 7:01 PM [facility] eGFR 89 >=60 mL/min/1. 73m2 LAB CHEMISTRY METHOD 01/08/2025 7:01 PM [facility] Comment:Calculation based on the Chronic Kidney Disease Epidemiology Collaboration (CKD-EPI) equation refit without adjustment for race. BUN/Creatinine Ratio 8.0 LAB CHEMISTRY METHOD 01/08/2025 7:01 PM [facility] Calcium 9.5 8.5 - 10.5 mg/dL LAB CHEMISTRY METHOD 01/08/2025 7:01 PM [facility] Blood Venous blood specimen / Unknown Venipuncture / Unknown 01/08/2025 5:59 PM EDT 01/08/2025 6:35 PM EDT us Sherif Fall MD LAB BLOOD ORDERABLES Final R esult [facility] [address] [place] [address], [place] [phone] * Polysomnography (12/21/2024 4:25 PM EDT) us Saida Du MD [facility] ORDERABLES Final Re sult * Lipid panel with reflex to direct LDL (08/27/2024 10:48 AM EST) Pathologist [facility] Cholesterol 166 0 - 200 mg/dL LAB CHEMISTRY METHOD 08/27/2024 6:42 PM EST [facility] Triglycerides 130 0 - 150 mg/dL LAB CHEMISTRY METHOD 08/27/2024 6:42 PM [facility] HDL 64 >=40 mg/dL LAB CHEMISTRY METHOD 08/27/2024 6:42 PM EST [facility] LDL Calculated 76 0 - 100 mg/dL LAB CHEMISTRY METHOD 08/27/2024 6:42 PM EST [facility] VLDL Cholesterol Yordy 26 mg/dL LAB CHEMISTRY METHOD 08/27/2024 6:42 PM EST [facility] Non HDL Chol. (LDL+VLDL) 102 <145 mg/dL LAB CHEMISTRY METHOD 08/27/2024 6:42 PM [facility] Chol/HDL Ratio 2.6 0.0 - 4.4 LAB CHEMISTRY METHOD 08/27/2024 6:42 PM [facility] Blood Venous blood specimen / Unknown Venipuncture / Unknown 08/27/2024 10:48 AM EST 08/27/2024 10:48 AM EST Jann Agrawal MD LAB BLOOD ORDERABLES Final Result [facility] [address] [place] [address], * Cervical Cancer Screening: HPV (11/15/2023) Pathologist [facility] Cervical Cancer Screening: HPV negative interpretation abstracted Historical Provider HEALTH MAINTENANCE Final Result * Hepatitis C Screening (09/02/2018) Pathologist [facility] Hepatitis C Screening abstracted Johnson Kay MD HEALTH MAINTENANCE Final Result from Last 3 Months or Most Recently Relevant to Health Maintenance Insurance BL[place]OSS - [place] MEDICARE AD[place]ANTAGE [place] - [place] Care Teams Travel Counselor Relationship Specialty Start Date End Date Jann Agrawal MD [address] [place] [address] PCP - General 11/12/23
--- OUTSIDE RECORDS SUMMARY | 2025-02-28 22:22 | XMS_ITS | Clinical Summary ---
Author Organization [address] Address [address] [place] [phone] Phone Care Team Providers Care Personal Injury Legal Assistant Name Role Phone Jann Agrawal MD Primary Care Provider Allergies No known active allergies Medications acetaminophen 325 mg Cap Take 325 mg by mouth. 4 Active albuterol sulfate 90 mcg/actuation HFA aerosol inhaler INHALE 2 PUFFS INTO THE LUNGS EVERY 4 HOURS NEEDED FOR COUGH, WHEEZING, OR SHORTNESS OF BREATH. 4 Active butalbital-acet aminophen-caffe ine 50-300-40 mg Cap 3 Active ferrous sulfate 325 mg (65 mg iron) delayed release tablet Take 1 tablet (325 mg total) by mouth. 4 Active fluticasone propionate (FLONASE) 50 mcg/actuation nasal spray 0 Refills, Maintenance, 12/18/23 9:11:00 EDT, Partial fill upon patient request if the prescription is for a schedule II opioid drug. 4 Active hydrOXYzine (VISTARIL) 25 mg capsule Take 1 capsule (25 mg total) by mouth. 4 Active SUMAtriptan (IMITREX) 100 mg tablet TAKE 1 TABLET BY MOUTH EVERY DAY NEEDED FOR MIGRAINES. 4 Active topiramate (TOPAMAX) 25 mg tablet TAKE 1 TABLET BY MOUTH EVERY DAY FOR 7 DAYS, THEN INCREASE AND TAKE 1 TABLET TWO TIMES A DAY EVERY DAY. 4 Active Active Problems No known active problems Encounters Date Type Department Care Team Description 12/01/2024 Transcribed Orders Ophthalmology at [address] [place] [id number] MurrellLalit Lanre, OD Hx of headache (Primary Dx); Papilledema from Last 3 Months Social History Tobacco Use Types Packs/Day Years Used Date Smoking Tobacco: Never Assessed Comments Unknown Sex and Gender Information Value Date Recorded Sex Assigned at Not on file Legal Sex Female 12:53 PM EDT Gender Identity Not on file Sexual Orientation Not on file Plan of Treatment Upcoming Encounters Date Type Department Care Team (Late st Contact Info) Description 03/17/2025 3:00 PM EDT Office Visit [facility] at [address] [facility] [address] [place] [address] Lalit Murrell Lanre, OD [address] [place] [phone] Marci Thomas MD [address] [facility] [address] [place] [address] Health Maintenance Due Date Last Done Comments HIV screening 2002 Hepatitis C screening 2007 Tetanus adult (Td q 10,TDAP once) 2009 Cervical cancer screening 09/18/2021 09/18/2018 Covid-19 vaccine series ( - 2023- season) 2024 Influenza vaccine 04/12/2025 07/07/2024, 11/09/2023 RSV Immunization (1 - 1-dose 75+ series) 2064 Meningococcal Vaccine Aged Out No susana kesha eligible based on patient's age to complete this topic Pneumococcal Vaccine (2 - 49 years) Aged Out No longer eligible b ased on patient's age to complete this topic Insurance [id number] MEDICAID [facility] [id number] MEDICAID [facility] [id number] MEDICAID BCBS Care Teams Personal Injury Legal Assistant Relationship Specialty Start Date End Date Jann Agrawal MD [address] [place] [address] PCP - General Internal Medicine 12/31/23
[2025-02-28 22:33] LABS: Alanine Aminotransferase 30 U/L (0-31); Albumin Level 4.3 g/dL (3.5-5.0); Alkaline Phosphatase 109 U/L (39-117); Anion Gap 10 (12-20); Aspartate Amino Transferase 23 U/L (5-31); Blood Urea Nitrogen 10 mg/dL (9-16); Calcium 8.8 mg/dL (8.4-10.2); Carbon Dioxide 23 mmol/L (22-29); Chloride 112 mmol/L (96-108); Creatinine Clr Calc Pharmacy 113.8; Estimated Glomerular Filt Rate > 60; Lipase 34 U/L (8-78); Potassium 3.9 mmol/L (3.3-5.1); Sodium 141 mmol/L (135-145); Total Protein 7.6 g/dL (6.5-8.0)
--- NOTE | 2025-02-28 23:08 | ED.GENADULT ---
HPI - General Adult General Chief complaint: Abdominal Pain Stated complaint: Throwing up, abd pain Time Seen by Provider: 02/28/25 23:07 History of Present Illness ED Provider: Aquiles HOOKS narrative: The patient is a 34-year-old female who has a history of idiopathic intracranial hypertension. She received a INCIDENT COMMANDER shunt for management of this condition 3 years ago. She presents with a complaint of abdominal pain associated with nausea and vomiting that started earlier today. She has had no fever, sweats, chills. No diarrhea. No dysuria. No back pain. She is very vague about which region of her abdomen is causing her pain. Related Data Previous Rx's ?Medication ?Instructions ?Recorded omeprazole 40 mg capsule,delayed 40 mg PO DAILY #30 caps 03/01/25 release ondansetron 4 mg disintegrating 4 mg PO Q6H PRN nausea and 03/01/25 tablet vomiting #10 tabs Allergies Allergy/AdvReac Type Severity Reaction Status Date / Time No Known Allergies (No Known Allergy Verified 02/28/25 22:02 Allergies*) Review of Systems Review of Systems: Yes all other systems are reviewed and are negative [facility] Social History Social History Alcohol intake: current Alcohol intake frequency: holidays/special occasions only Physical Exam ED Vital Signs: Vital Signs - 24 hr 02/28/25 21:57 03/01/25 02:21 03/01/25 06:21 Temperature 97.7 F 97.6 F 97.6 F Pulse Rate 109 H 86 86 Respiratory Rate 20 16 16 Blood Pressure 119/87 114/63 114/63 Pulse Oximetry 95 94 94 Oxygen Delivery Method Room Air Room Air Room Air BMI result Body Mass Index 39.8 Const Other: The patient was sleeping but awoke easily. When she awoke she seemed very anxious and said she was very uncomfortable. I felt she has a somewhat child-like demeanor and she seemed to express a lot of feelings of anxiety. HENMT Other: The face is symmetrical. ?Mucous membranes moist. Eyes Other: Pupils are round equal, conjunctivae are clear, extraocular movements intact Neck Neck: Yes normal visual inspection and Yes full ROM Resp Effort & Inspection: normal respiratory effort Auscultation: clear to auscultation bilaterally Cardio Rate: regular rate Rhythm: regular rhythm Heart sounds: S1 normal heart sound present and S2 normal heart sound present GI Other: The patient had diffuse abdominal tenderness, mostly in the right upper quadrant and in the left lower quadrant. Skin General skin exam: no rashes or lesions noted Neuro Other: The patient was awake and alert but seemed quite anxious. Cranial nerves 2-12 are intact. She moves her extremities symmetrically and appropriately. Extrem Other: There is no calf swelling or tenderness. No asymmetry. No peripheral edema. Medications Administered Discontinued Medications Generic Name Dose Route Start Last Admin Trade Name Frenena PRN Reason Stop Dose Admin Famotidine 20 mg 03/01/25 00:00 03/01/25 00:41 Famotidine/Pf 20 Mg/2 Ml Vial IVPUSH 03/01/25 00:01 20 mg ONCE ONE Administration Sodium Chloride 1,000 mls @ 999 mls/hr 03/01/25 00:00 03/01/25 02:32 Ns IV 03/01/25 01:00 Infused .Q1H1M AMAYA Infusion Iohexol 85 ml 03/01/25 00:54 03/01/25 00:55 Iohexol 350 Mg/Ml 100 Ml Infus..Btl IV 03/01/25 00:55 85 ml ONCE ONE Administration Metoclopramide HCl 10 mg 03/01/25 02:56 03/01/25 03:15 Metoclopramide Hcl 10 Mg/2 Ml Vial IVPUSH 03/01/25 02:57 10 mg ONCE ONE Administration Morphine Sulfate 4 mg 03/01/25 00:00 03/01/25 00:41 Morphine Sulfate 4 Mg/Ml Cartridge IVPUSH 03/01/25 00:01 4 mg ONCE ONE Administration Protocol Ondansetron HCl 4 mg 03/01/25 00:00 03/01/25 00:41 Ondansetron Hcl 4 Mg/2 Ml Vial IVPUSH 03/01/25 00:01 4 mg ONCE ONE Administration Prochlorperazine Maleate 10 mg 03/01/25 02:14 03/01/25 03:06 Prochlorperazine Maleate 5 Mg Tablet PO 03/01/25 02:15 Not Given ONCE ONE Medical Decision Making Medical Decision Making MDM Narrative: The patient is a 34-year-old female with a history of a INCIDENT COMMANDER shunt because of idiopathic intracranial hypertension who presents with the abdominal pain and vomiting. She seemed to have significant tenderness on her abdominal exam although her labs were unremarkable. A CT scan of the abdomen and pelvis was ordered because of the degree of tenderness. She was given morphine and ondansetron and famotidine for her symptoms. My suspicion was that she might have gastritis. A CT of the abdomen and pelvis shows no acute findings to explain her pain. This was not really surprising given her unremarkable labs. I reviewed records from [facility] as well. The patient was seen for abdominal pain most recently at [facility] on January 19 and . She had an unremarkable workup. She had a CT scan of the abdomen at that time. The note from that emergency room visit also states ?has had RUQ US several times with normal gallbladder. ? She was also evaluated for right upper quadrant abdominal pain on 01/05/2025 at [facility]. She had a negative ultrasound at that time. She was seen at [facility] on 11/10/2024 for stroke-like symptoms that were ultimately attributed to a probable migraine phenomenon. My overall impression today given her negative CAT scan in her unremarkable labs his that she probably has no acute process. She felt better after a dose of IV morphine and IV fluids. She continued to complain of some nausea. She will be given metoclopramide. My suspicion for any acutely dangerous intra-abdominal process is very low. I think the patient may be discharged with a prescription for omeprazole and ondansetron. She should follow up with her PCP. She should return if worse. Lab Data 02/28/25 22:07 02/28/25 22:07 Labs: Lab Results 02/28/25 Range/Units 22:07 WBC 12.6 H (4.8-10.8) X10*3/uL RBC 5.03 (4.20-5.50) X10*6/uL Hgb 12.2 (12.0-16.0) g/dl Hct 37.7 (37.0-47.0) % MCV 75.0 L (80.0-98.0) fL MCH 24.3 L (27.0-33.0) pg MCHC 32.4 (31.0-35.0) g/dl RDW 15.6 (11.0-16.0) % Plt Count 424 H (160-400) X10*3/uL MPV 9.2 L (9.4-12.3) fL Immature Gran % (Auto) 0.4 (0.0-0.4) % Neut % (Auto) 66.1 (45-73) % Lymph % (Auto) 20.5 (20-40) % [place] % (Auto) 5.6 (2-11) % Eos % (Auto) 7.1 H (0-4) % Baso % (Auto) 0.3 (0-2) % Lymph # (Auto) 2.6 (1.2-4.9) X10*3/uL [place] # (Auto) 0.7 (0.1-1.2) X10*3/uL Eos # (Auto) 0.9 H (0.0-0.4) X10*3/uL Baso # (Auto) 0.0 (0.0-0.2) X10*3/uL Abs Immat Gran (auto) 0.05 H (0.00-0.03) X10*3/uL Absolute Neuts (auto) 8.3 (2.0-8.3) x10*3/uL Absolute Nucleated RBC 0.000 (0.0-0.012) X10*3/uL Nucleated RBC % (auto) 0.0 (0.0-0.2) /100WBC Sodium 141 (135-145) mmol/L Potassium 3.9 (3.3-5.1) mmol/L Chloride 112 H (96-108) mmol/L Carbon Dioxide 23 (22-29) mmol/L Anion Gap 10 L (12-20) BUN 10 (9-16) mg/dL Creatinine 0.70 (0.5-1.4) mg/dL Estim Creat Clear Calc 113.8 Estimated GFR > 60 Random Glucose 90 (60-115) mg/dL Calcium 8.8 (8.4-10.2) mg/dL Total Bilirubin 0.3 (0.0-1.0) mg/dL AST 23 (5-31) U/L ALT 30 (0-31) U/L Alkaline Phosphatase 109 (39-117) U/L C-Reactive Protein 1.92 H (< or = 0.50) mg/dL Total Protein 7.6 (6.5-8.0) g/dL Albumin 4.3 (3.5-5.0) g/dL Lipase 34 (8-78) U/L Beta HCG, Quant < 2 mIU/mL Discharge Plan Discharge Clinical Impression: Abdominal pain with vomiting Patient Disposition: Home, Self-Care Additional Instructions: Your testing today is not showing any acutely dangerous process. Your abdominal pain may be coming from irritation of your stomach related to stomach acid. This condition can be called ?gastritis. ?. I have sent a prescription for medication called omeprazole to your pharmacy. Please take this medication daily. This may be helpful. I have also sent a prescription for a medication called ondansetron which you may use as needed for nausea. Please call your regular doctor's office in the morning for a follow up appointment to discuss this episode further and to see whether you might need additional testing or possibly a referral to a dairy management specialist. There are also some findings on your CAT scan which are very uncertain and which are of uncertain significance. There is a questionable finding in the region of your right ovary and also a questionable finding in the region of your liver. Please discuss these findings with your regular doctor. Return to the emergency room if significantly worse. Prescriptions: New ondansetron 4 mg tablet,disintegrating 4 mg PO Q6H PRN (Reason: nausea and vomiting) Qty: 10 0RF omeprazole 40 mg capsule,delayed release(DR/EC) 40 mg PO DAILY Qty: 30 0RF Referrals: Jann Agrawal MD [Physician, Internal Medicine] Interventions: ED Discharge Assessment Last Done: 03/01/25 06:21 Discharge Date/Time: 03/01/25 03:30 Print Language: Surinamese
[2025-03-01] MEDS: iohexoL 350 MG/ML 100 ML INFUS..BTL 85 ML IV (00:55)
[2025-03-01 02:21] VITALS: BP 114/63; PULSE 86; RESP 16; TEMP 36.4; O2SAT 94
[2025-03-01 06:21] VITALS: BP 114/63; PULSE 86; RESP 16; TEMP 36.4; O2SAT 94
== END 2025-03-01 03:30 | disposition home or self-care (01) ==
PROVIDERS: Emergency Provider Emergency Medicine
DX: R11.2 Nausea with vomiting, unspecified (principal); R10.2 Pelvic and perineal pain; R10.811 Right upper quadrant abdominal tenderness; Z79.899 Other long term (current) drug therapy
CPT/HCPCS: 36415; 74177; 80053; 83690; 84702; 85025; 86140; 96361; 96374; 96375; 99284; J1308; J2270; J2405; J2765; Q9967

== ENCOUNTER → 2025-03-01 | Outpatient (BNV) | payer MEDICARE, MEDICAID, SELFPAY | PROVIDERS: Emergency Provider Emergency Medicine; Visit Provider Radiology Diagnostic Radiology | DX: R10.811 Right upper quadrant abdominal tenderness (principal); R10.84 Generalized abdominal pain; Z98.2 Presence of cerebrospinal fluid drainage device | CPT/HCPCS: 74177 ==

== ENCOUNTER 2025-03-30 14:27 | Emergency (ER) | payer MEDICARE, MEDICAID, SELFPAY ==
--- NOTE | ~2025-03-30 | CT_ITS ---
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 No ventricular dilatation. Near-complete decompression of the right lateral ventricle without change. No intra-axial mass, midline shift, or acute hemorrhage. No significant atrophy-like change or white matter disease. Mucosal thickening and mucous retention cyst formation within the paranasal sinuses. No air-fluid levels. The orbits are within normal limits. There is no acute fracture. IMPRESSION: 1. No acute intracranial findings. This document has been electronically signed by: Amanda Pathak MD on 03/30/2025 18:00:08
[2025-03-30 14:37] VITALS: BP 146/84; PULSE 94; O2SAT 99
[2025-03-30 14:39] VITALS: BP 144/94; PULSE 90; RESP 18; TEMP 36.6; O2SAT 98; BMI 39.8
--- NOTE | 2025-03-30 14:44 | ED.HA ---
HPI - Headache General Chief Complaint: Headache Stated Complaint: Headache Related Data Previous Rx's ?Medication ?Instructions ?Recorded omeprazole 40 mg capsule,delayed 40 mg PO DAILY #30 caps 03/01/25 release ondansetron 4 mg disintegrating 4 mg PO Q6H PRN nausea and 03/01/25 tablet vomiting #10 tabs Allergies Allergy/AdvReac Type Severity Reaction Status Date / Time No Known Allergies (No Known Allergy Verified 03/30/25 14:40 Allergies*) [facility] Social History Social History Alcohol intake: current Alcohol intake frequency: holidays/special occasions only Advance Directives: No Advance Directives Information Provided: No Do you have a plan to hurt others: No Plan Physical Exam Vital Signs: Vital Signs: Last Vital Signs Temp 98 F 03/30/25 14:39 Pulse 90 03/30/25 14:39 Resp 18 03/30/25 14:39 BP 144/94 H 03/30/25 14:39 Pulse Ox 98 03/30/25 14:39 O2 Del Method Room Air 03/30/25 14:39 BMI result Body Mass Index 39.8 Course Course Course Narrative: This is a Rapid Medical Examination (RME) performed by Jhonatan Zavaleta PA-C in triage. Full HPI, ROS, assessment and treatment plan per primary provider in the Main ED. 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 assoc R facial and neck numbness, generalized weakness. PE/vitals: NIH 0. Plan: labs, CT head Reevaluation(s) Reevaluation #1: Patient left the emergency department before myself or any of the other clinicians could review or explain physical exam findings, test results, need or lack there of for additional testing, treatment options, or a treatment plan. Medical Decision Making Lab Data 03/30/25 16:16 03/30/25 16:16 Labs: Lab Results 03/30/25 Range/Units 16:16 WBC 9.4 (4.8-10.8) X10*3/uL RBC 5.05 (4.20-5.50) X10*6/uL Hgb 12.2 (12.0-16.0) g/dl Hct 38.2 (37.0-47.0) % MCV 75.6 L (80.0-98.0) fL MCH 24.2 L (27.0-33.0) pg MCHC 31.9 (31.0-35.0) g/dl RDW 16.8 H (11.0-16.0) % Plt Count 380 (160-400) X10*3/uL MPV 9.6 (9.4-12.3) fL Immature Gran % (Auto) 0.4 (0.0-0.4) % Neut % (Auto) 67.4 (45-73) % Lymph % (Auto) 19.0 L (20-40) % Andrews % (Auto) 7.3 (2-11) % Eos % (Auto) 5.6 H (0-4) % Baso % (Auto) 0.3 (0-2) % Lymph # (Auto) 1.8 (1.2-4.9) X10*3/uL [place] # (Auto) 0.7 (0.1-1.2) X10*3/uL Eos # (Auto) 0.5 H (0.0-0.4) X10*3/uL Baso # (Auto) 0.0 (0.0-0.2) X10*3/uL Abs Immat Gran (auto) 0.04 H (0.00-0.03) X10*3/uL Absolute Neuts (auto) 6.3 (2.0-8.3) x10*3/uL Absolute Nucleated RBC 0.000 (0.0-0.012) X10*3/uL Nucleated RBC % (auto) 0.0 (0.0-0.2) /100WBC Sodium 140 (135-145) mmol/L Potassium 4.2 (3.3-5.1) mmol/L Chloride 111 H (96-108) mmol/L Carbon Dioxide 23 (22-29) mmol/L Anion Gap 10 L (12-20) BUN 8 L (9-16) mg/dL Creatinine 0.66 (0.5-1.4) mg/dL Estim Creat Clear Calc 120.8 Estimated GFR > 60 Random Glucose 91 (60-115) mg/dL Calcium 8.9 (8.4-10.2) mg/dL Magnesium 2.3 (1.6-2.6) mg/dL Total Bilirubin 0.2 (0.0-1.0) mg/dL AST 24 (5-31) U/L ALT 26 (0-31) U/L Alkaline Phosphatase 124 H (39-117) U/L Total Protein 7.1 (6.5-8.0) g/dL Albumin 4.2 (3.5-5.0) g/dL Beta HCG, Quant < 2 mIU/mL Influenza Type A (PCR) NEGATIVE (Negative) Influenza Type B (PCR) NEGATIVE (Negative) RSV RNA Qual (PCR) NEGATIVE (Negative) SARS-CoV-2 RNA (RT-PCR) NEGATIVE (Negative) Discharge Plan Discharge Clinical Impression: Headache Patient Disposition: Left W/O Completing Treatment Prescriptions: No Action ondansetron 4 mg tablet,disintegrating 4 mg PO Q6H PRN (Reason: nausea and vomiting) Qty: 10 0RF omeprazole 40 mg capsule,delayed release(DR/EC) 40 mg PO DAILY Qty: 30 0RF Discharge Date/Time: 03/30/25 21:34
[2025-03-30 16:25] LABS: MANUAL DIFF FLAG NO
[2025-03-30 16:31] LABS: Hematocrit 38.2 % (37.0-47.0); Hemoglobin 12.2 g/dl (12.0-16.0); Imm Gran Abs Auto 0.04 X10*3/uL (0.00-0.03); Imm Gran Pct Auto 0.4 % (0.0-0.4); Lymphocytes Absolute Auto 1.8 X10*3/uL (1.2-4.9); Mean Corpuscular HGB Conc 31.9 g/dl (31.0-35.0); Mean Corpuscular Hemoglobin 24.2 pg (27.0-33.0); Mean Corpuscular Volume 75.6 fL (80.0-98.0); NRBC Abs Auto 0.000 X10*3/uL (0.0-0.012); NRBC Pct Auto 0.0 /100WBC (0.0-0.2); Platelet Count 380 X10*3/uL (160-400); Red Blood Count 5.05 X10*6/uL (4.20-5.50); White Blood Count 9.4 X10*3/uL (4.8-10.8)
[2025-03-30 16:48] LABS: Alanine Aminotransferase 26 U/L (0-31); Albumin Level 4.2 g/dL (3.5-5.0); Alkaline Phosphatase 124 U/L (39-117); Anion Gap 10 (12-20); Aspartate Amino Transferase 24 U/L (5-31); Blood Urea Nitrogen 8 mg/dL (9-16); Calcium 8.9 mg/dL (8.4-10.2); Carbon Dioxide 23 mmol/L (22-29); Chloride 111 mmol/L (96-108); Creatinine Clr Calc Pharmacy 120.8; Estimated Glomerular Filt Rate > 60; Magnesium 2.3 mg/dL (1.6-2.6); Potassium 4.2 mmol/L (3.3-5.1); Sodium 140 mmol/L (135-145); Total Protein 7.1 g/dL (6.5-8.0)
[2025-03-30 17:02] LABS: Resp Syncy Virus RNA Qual PCR NEGATIVE (Negative); SARS COV2 PCR INHOUSE NEGATIVE (Negative)
== END 2025-03-30 21:34 | disposition left against medical advice (07) ==
PROVIDERS: Physician Assistant Medical; Emergency Provider Emergency Medicine
DX: R51.9 Headache, unspecified (principal); Z98.2 Presence of cerebrospinal fluid drainage device; Z03.818 Encounter for observation for suspected exposure to other biological agents ruled out
CPT/HCPCS: 70450; 80053; 83735; 84702; 85025; 87637; 99281; 99284

== ENCOUNTER → 2025-03-30 14:42 | Outpatient (BNV) | payer MEDICARE, MEDICAID, SELFPAY | PROVIDERS: Visit Provider Radiology Diagnostic Radiology | DX: R51.9 Headache, unspecified (principal) | CPT/HCPCS: 70450 ==

== ENCOUNTER → 2025-04-15 08:44 | Outpatient (BNV) | payer MEDICARE, MEDICAID, SELFPAY | PROVIDERS: Emergency Provider Emergency Medicine; PCP Internal Medicine; Visit Provider Radiology Body Imaging | DX: J45.909 Unspecified asthma, uncomplicated (principal) | CPT/HCPCS: 71046 ==

== ENCOUNTER 2025-04-15 08:58 | Emergency (ER) | payer MEDICARE, MEDICAID, SELFPAY ==
--- NOTE | 2025-04-15 | ECG_ITS ---
Test Reason : asthma Blood Pressure : */* mmHG Vent. Rate : 107 BPM Atrial Rate : 107 BPM P-R Int : 146 ms QRS Dur : 84 ms QT Int : 336 ms P-R-T Axes : 50 63 30 degrees QTcB Int : 448 ms Sinus tachycardia Cannot rule out Anterior infarct , age undetermined Abnormal ECG When compared with ECG of 08-Apr-2016 10:04, No significant change was found Referred By: Generic ED Physician Electronically Signed By: Felix Camarena
--- NOTE | ~2025-04-15 | XR_ITS ---
EXAMINATION: XR CHEST CLINICAL INFORMATION: upper resp/ asthma COMPARISON: None available. TECHNIQUE: 2 views of the chest were obtained. FINDINGS: Devices/Tubes/Lines: A catheter projects over the right neck and right anterior chest wall. Lungs: Hypoinflated lungs. No focal consolidation. No evidence of pulmonary edema. Pleura: No pleural effusion or pneumothorax. Heart/Mediastinum: Normal heart and mediastinum. Bones: Unremarkable XR/XR chest 2V IMPRESSION: No acute abnormality. Electronically signed by: Tammi Zheng MD 04/15/2025 09:51 AM EDT
[2025-04-15 09:05] VITALS: BP 143/71; PULSE 114; RESP 22; TEMP 37; O2SAT 98; BMI 34.0
[2025-04-15 09:32] LABS: MANUAL DIFF FLAG NO
[2025-04-15 09:37] LABS: Hematocrit 37.4 % (37.0-47.0); Hemoglobin 11.8 g/dl (12.0-16.0); Imm Gran Abs Auto 0.07 X10*3/uL (0.00-0.03); Imm Gran Pct Auto 0.5 % (0.0-0.4); Lymphocytes Absolute Auto 1.9 X10*3/uL (1.2-4.9); Mean Corpuscular HGB Conc 31.6 g/dl (31.0-35.0); Mean Corpuscular Hemoglobin 23.6 pg (27.0-33.0); Mean Corpuscular Volume 74.9 fL (80.0-98.0); NRBC Abs Auto 0.000 X10*3/uL (0.0-0.012); NRBC Pct Auto 0.0 /100WBC (0.0-0.2); Platelet Count 408 X10*3/uL (160-400); Red Blood Count 4.99 X10*6/uL (4.20-5.50); White Blood Count 13.3 X10*3/uL (4.8-10.8)
--- NOTE | 2025-04-15 09:43 | ED_ITS ---
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 She is also on Topamax. I believe that she had her initial PREPARED FOODS SERVICE TEAM MEMBER shunt placed in [place] about 4 years ago. She has recently returned to this area. She has a neurologist and a neurosurgeon through [facility]. She gets her primary care through [facility]. The patient has been unwell for about 4 days. Her symptoms began on Saturday. She says that she has had a cough and a runny nose a headache, and chest pain. Related Data Previous Rx's ?Medication ?Instructions ?Recorded omeprazole 40 mg capsule,delayed 40 mg PO DAILY #30 ca ps 03/01/25 release ondansetron 4 mg disintegrating 4 mg PO Q6H PRN nausea and 03/01/25 tablet vomiting #10 tabs azithromycin 250 mg tablet 250 mg PO DAILY 4 days #4 t abs 04/15/25 budesonide-formoterol HFA 160 2 puff inhalation BID #1 0.2 grams 04/15/25 mcg-4.5 mcg/actuation aerosol inhaler prednisone 20 mg tablet 20 mg PO DAILY #12 tabs 12/04 Allergies Allergy/AdvReac Type Severity Reaction Status Date / Time No Known Allergies (No Known Allergy Verified 04/15/25 09:06 Allergies*) Review of Systems 2 Review of Systems: Yes all other systems are reviewed and are negative [facility] Social History Social History Alcohol intake: current Alcohol intake frequency: holidays/special occasions only Advance Directives: No Advance Directives Information Provided: Yes Physical Exam ED Vital Signs: Vital Signs - 24 hr 04/15/25 09:05 04/15/25 10:14 04/15/25 10:31 Temperature 98.6 F Pulse Rate 114 H 95 Respiratory Rate 22 H 22 H Blood Pressure 143/71 H Pulse Oximetry 98 98 Oxygen Delivery Method Room Air Room Air 04/15/25 11:42 04/15/25 11:48 Temperature 97.8 F 97.8 F Pulse Rate 91 91 Respiratory Rate 16 16 Blood Pressure 109/61 109/61 Pulse Oximetry 99 99 Oxygen Delivery Method Room Air Room Air BMI result Body Mass Index 34.0 Const Other: The patient is a 34-year-old woman who was awake and alert. She looks mildly unwell but not acutely toxic. Orientation/consciousness: patient oriented x3 HENMT Other: The face is symmetrical. Mucous membranes moist. Eyes Other: Pupils are round equal, conjunctivae are clear, extraocular movements intact Neck Neck: Yes normal visual inspection and Yes full ROM Resp Other: No marked increased work of breathing but there were wheezes bilaterally. Cardio Rate: regular rate Rhythm: regular rhythm Heart sounds: S1 normal heart sound present and S2 normal heart sound present GI Other: Abdomen is soft and nontender Skin Other: The skin is dry and unremarkable General skin exam: no rashes or lesions noted Neuro General: patient oriented x3, gait normal, tone normal, moves all extremities, no focal motor deficits and CN's II-XI intact bilaterally Extrem Other: There is no calf swelling or tenderness. No asymmetry. No peripheral edema. Medications Administered Discontinued Medications Generic Name Dose Route Start Last Admin Trade Name Huyq PRN Reason Stop Dose Admin Azithromycin 500 mg 04/15/25 11:34 04/15/25 11:41 Azithromycin 500 Mg Tablet PO 04/15/25 11:35 500 mg ONCE ONE Administration Albuterol Sulfate 2.5 mg/ 0 mg 04/15/25 10:31 04/15/25 10:35 Albuterol/Ipratropium 3 ml INHALE 04/15/25 10:32 1 dose ONCE ONE Administration Acetaminophen 1,000 mg in 100 mls @ 400 mls/hr 04/15/25 10:13 04/15/25 11:41 Ofirmev IV 04/15/25 10:27 Infused ONCE ONE Infusion Sodium Chloride 1,000 mls @ 999 mls/hr 04/15/25 10:15 04/15/25 11:41 Ns IV 04/15/25 11:15 Infused .Q1H1M AMAYA Infusion Ketorolac Tromethamine 15 mg 04/15/25 10:13 04/15/25 10:29 Ketorolac Tromethamine 15 Mg/Ml Vial IVPUSH 04/15/25 10:14 15 mg ONCE ONE Administration Prednisone 60 mg 04/15/25 11:34 04/15/25 11:41 Prednisone 20 Mg Tablet PO 04/15/25 11:35 60 mg ONCE ONE Administration Medical Decision Making Medical Decision Making [facility] Narrative: The patient is a 34-year-old female with a history of idiopathic intracranial hypertension who has a PREPARED FOODS SERVICE TEAM MEMBER shunt and is on Topamax who presents with several days of respiratory symptoms and generalized discomfort. On exam she has wheezes. Chest x-ray shows no pneumonia. Labs show a mildly elevated white count than a mildly elevated CRP. Clinically the patient looks mildly unwell but not severely so. She does not seem to have symptoms that I think would likely be indicative of a problem with her PREPARED FOODS SERVICE TEAM MEMBER shunt or an exacerbation of her idiopathic intracranial hypertension. Her symptoms seem more respiratory and possibly viral. She is negative for COVID and influenza. She was treated symptomatically with IV fluids, IV ketorolac, an IV Acetaminophen. Additionally she was given bronchodilator treatments. She felt considerably better. She will be placed on a course of prednisone and azithromycin. I think this is an asthma exacerbation primarily. She should follow up with her PCP or return to the ER if worse. Lab Data 04/15/25 09:25 04/15/25 09:25 Labs: Lab Results 04/15/25 Range/Units 09:25 WBC 13.3 H (4.8-10.8) X10*3/uL RBC 4.99 (4.20-5.50) X10*6/uL Hgb 11.8 L (12.0-16.0) g/dl Hct 37.4 (37.0-47.0) % MCV 74.9 L (80.0-98.0) fL MCH 23.6 L (27.0-33.0) pg MCHC 31.6 (31.0-35.0) g/dl RDW 17.1 H (11.0-16.0) % Plt Count 408 H (160-400) X10*3/uL MPV 9.8 (9.4-12.3) fL Immature Gran % (Auto) 0.5 H (0.0-0.4) % Neut % (Auto) 75.3 H (45-73) % Lymph % (Auto) 14.0 L (20-40) % Tompkins % (Auto) 7.0 (2-11) % Eos % (Auto) 2.8 (0-4) % Baso % (Auto) 0.4 (0-2) % Lymph # (Auto) 1.9 (1.2-4.9) X10*3/uL Tompkins # (Auto) 0.9 (0.1-1.2) X10*3/uL Eos # (Auto) 0.4 (0.0-0.4) X10*3/uL Baso # (Auto) 0.1 (0.0-0.2) X10*3/uL Abs Immat Gran (auto) 0.07 H (0.00-0.03) X10*3/uL Absolute Neuts (auto) 10.0 H (2.0-8.3) x10*3/uL Absolute Nucleated RBC 0.000 (0.0-0.012) X10*3/uL Nucleated RBC % (auto) 0.0 (0.0-0.2) /100WBC Sodium 139 (135-145) mmol/L Potassium 4.1 (3.3-5.1) mmol/L Chloride 110 H (96-108) mmol/L Carbon Dioxide 24 (22-29) mmol/L Anion Gap 9 L (12-20) BUN 9 (9-16) mg/dL Creatinine 0.82 (0.5-1.4) mg/dL Estim Creat Clear Calc 107.8 Estimated GFR > 60 Random Glucose 97 (60-115) mg/dL Calcium 8.8 (8.4-10.2) mg/dL Magnesium 2.1 (1.6-2.6) mg/dL Total Bilirubin 0.5 (0.0-1.0) mg/dL AST 22 (5-31) U/L ALT 24 (0-31) U/L Alkaline Phosphatase 110 (39-117) U/L C-Reactive Protein 3.58 H (< or = 0.50) mg/dL Total Protein 7.3 (6.5-8.0) g/dL Albumin 4.3 (3.5-5.0) g/dL Beta HCG, Quant < 2 mIU/mL COVID-19 (SHRUTHI) Negative (Negative) COVID-19 Clin Com See Note Influenza Type A (FREDA) Negative (Negative) Influenza Type B (FREDA) Negative (Negative) Influenza A & B Note See Note S. pyogenes GrpA FREDA Negative (Negative) Discharge Plan Discharge Clinical Impression: Acute asthmatic bronchitis Patient Disposition: Home, Self-Care Instructions: Asthma (ED) Additional Instructions: You has been started on a course of prednisone and a course of antibiotics. I have sent prescriptions for these medications to your pharmacy on [facility]. I have also sent a prescription for a new inhaler, the budesonide formoterol inhaler. You may use your albuterol inhaler in addition to your budesonide formoterol inhaler. Use the albuterol inhaler every 4 hours as needed. Drink lot of fluids. Please contact your regular doctor's office for a follow up appointment next week. Return to the emergency room if significantly worse. Prescriptions: New azithromycin 250 mg tablet 250 mg PO DAILY 4 Days Qty: 4 0RF Rx Instructions: start on day 2 of therapy prednisone 20 mg tablet 20 mg PO DAILY Qty: 12 0RF Rx Instructions: Take 3 tablets by mouth daily for 2 days then take 2 tablets by mouth daily for 3 days. budesonide-formoterol 160-4.5 mcg/actuation HFA aerosol inhaler 2 puff inhalation BID Qty: 10.2 0RF No Action ondansetron 4 mg tablet,disintegrating 4 mg PO Q6H PRN (Reason: nausea and vomiting) Qty: 10 0RF omeprazole 40 mg capsule,delayed release(DR/EC) 40 mg PO DAILY Qty: 30 0RF Referrals: Jann Agrawal MD [Primary Care Provider, Internal Medicine] Interventions: ED Discharge Assessment Last Done: 04/15/25 11:48 Discharge Date/Time: 04/15/25 11:51 Print Language: Armenian
[2025-04-15 09:53] LABS: COVID-19 Test Negative (Negative); IDNOW Serial# 55D5AD1C
[2025-04-15 10:01] LABS: Alanine Aminotransferase 24 U/L (0-31); Albumin Level 4.3 g/dL (3.5-5.0); Alkaline Phosphatase 110 U/L (39-117); Anion Gap 9 (12-20); Aspartate Amino Transferase 22 U/L (5-31); Blood Urea Nitrogen 9 mg/dL (9-16); Calcium 8.8 mg/dL (8.4-10.2); Carbon Dioxide 24 mmol/L (22-29); Chloride 110 mmol/L (96-108); Creatinine Clr Calc Pharmacy 107.8; Estimated Glomerular Filt Rate > 60; IDNOW Serial# 58CA691E; Influenza B2 Negative (Negative); Magnesium 2.1 mg/dL (1.6-2.6); Potassium 4.1 mmol/L (3.3-5.1); Sodium 139 mmol/L (135-145); Total Protein 7.3 g/dL (6.5-8.0)
[2025-04-15 10:09] LABS: IDNOW Serial# 55D5AD1C; Strep A Nucleic Acid Negative (Negative)
--- OUTSIDE RECORDS SUMMARY | 2025-04-15 10:10 | XMS_ITS | Clinical Summary ---
Author Organization [facility] Address [address] [facility] [address] [place] [address] Phone Care Team Providers Care Sewer And Drain Technician Name Role Phone Jann Agrawal MD Primary Care Provider [phone] Allergies No known active allergies Social History Tobacco Use Types Packs/Day Years Used Date Smoking Tobacco: Never Assessed Education Answer Date Recorded Are you interested in more education? Not on malini e 01/07/2025 Are you concerned about learning? Not on file 01/07/2025 No 01/07/2025 No 01/07/2025 Food Answer Date Recorded Within the past 6 months we worried whether our food would run out before we got money to buy more. Never True 01/07/2025 Within the past 6 months the food we bought just didn't last and we didn't have enough money to get more. Never True Residential Stability Answer Date Recor ded What is your housing situation today? I have shivani sing 01/07/2025 How many times have you move d in the past 12 months? Zero (I did not move) 01/07/2025 Paying for Meds Answer Date Recorded Do you have trouble paying for medicines? No 01/07/2025 Paying Utility Bills Answer Date Record ed Do you have trouble paying your heating or elect ricity bill? No 01/07/2025 Transportation Answer Date Recorded Has the lack of transportati on kept you from medical appointments or from getting medications? No 01/07/2025 Digital Access Answer Date Recorded No 01/07/2025 Yes 01/07/2025 Do you have reliable internet access at home? Ye s 01/07/2025 Do you have a device (e.g., phone, tablet, computer) with a working camera? Yes 01/07/2025 Intimate Partner Violence Answer Date R ecorded Are you denied basic needs s uch as food, clothing, or medical care? No 01/07/2025 In the past 12 months have y ou been in a relationship with a person who hurts, threatens, or tries to control you? No 01/07/2025 Are you denied basic needs s uch as food, clothing, or medical care? No 01/07/2025 In the past 12 months have y ou been in a relationship with a person who hurts, threatens, or tries to control you? No 01/07/2025 Comments Unknown Sex and Gender Information Value Date Recorded Sex Assigned at Not on file Legal Sex Female 8:52 AM EDT Gender Identity Not on file Sexual Orientation Not on file Last Filed Vital Signs Vital Sign Reading Time Taken Comments Blood Pressure 127/77 01/07/2025 11:30 AM EDT Pulse 65 01/07/2025 11:30 AM EDT Temperature 35.9 C (96.6 F) 01/07/2025 9:01 AM EDT Respiratory Rate 15 01/07/2025 11:30 AM EDT Oxygen Saturation 100% 01/07/2025 11:30 AM EDT Inhaled Oxygen Concentration - - Weight 93.9 kg (207 lb) 01/07/2025 9:01 AM EDT Height 152.4 cm (5') 01/07/2025 9:01 AM EDT Body Mass Index 40.43 01/07/2025 9:01 AM EDT Plan of Treatment Health Maintenance Due Date Last Done Comments Adult Td,Tdap Booster 1989 DEPRESSION SCREENING 2001 SMOKING Hx and SMOKELESS TOB ACCO SCREENING 2002 HEPATITIS C SCREENING 2007 HIV ONE-TIME SCREENING (18-6 5 YEARS) 2007 PAP SMEAR 2010 COVID-19 VACCINE (2023-2 5 season) 2024 SCREENING FOR DIABETES 01/08/2028 01/07/2025 HEPATITIS A VACCINES Aged Out No long er eligible based on patient's age to complete this topic HIB VACCINES Aged Out No longer eligi ble based on patient's age to complete this topic MENINGOCOCCAL VACCINES (ACWY) Aged Out No longer eligible based on patient's age to complete this topic MENINGOCOCCAL VACCINES (B) Aged Out N o longer eligible based on patient's age to complete this topic PNEUMOCOCCAL VACCINES (0-49 years) Aged Out No longer eligible based on patient's age to complete this topic Medical Devices Not on file [place] [address] [place] [address] MEDICARE PPO BLUE REPLACEMENT [facility] MEDICARE PART A & B [facility] MEDICARE PPO BLUE REPLACEMENT [address] [place] [address]HEALTH MEDICARE PART A & B [place] MEDICARE PPO BLUE REPLACEMENT [address] [place], [place] [address]HEALTH MEDICARE PART A & B Member Subscriber Plan / Payer (Ef fective 2013-Present) Name:Tanisha Garg Member ID:[id number] Relation to Subscriber:Self Name:Tanisha Garg Subscriber ID:[id number] Payer ID:[id number] Group ID:Not on file Type:Medicare Address: [employer] [address] [place] MEDICARE PPO BLUE REPLACEMENT [facility] MEDICARE PART A & [place] [address] [place] [address] MEDICARE PPO BLUE REPLACEMENT [facility] MEDICARE PART A & [place] [address] [place] [address] MEDICARE PPO BLUE REPLACEMENT [facility] MEDICARE PART A & B Member Subscriber Plan / Payer (Ef fective 2013-Present) Name:Tanisha Garg Member ID:[id number] Relation to Subscriber:Self Name:Tanisha Garg Subscriber ID:[id number] Payer ID:[id number] Group ID:Not on file Type:Medicare Address: [facility] [employer] [facility] [address] [place] [address] Care Teams Sewer And Drain Technician Relationship Specialty Start Date End Date Jann Agrawal MD [address] [place] [address] PCP - General 01/07/25 Additional Source Comments The information contained in this document represents components of the legal health record. It is not the complete legal health record.[facility]
--- OUTSIDE RECORDS SUMMARY | 2025-04-15 10:10 | XMS_ITS | Clinical Summary ---
Author Organization [facility] [address] [place] [address] [place] [phone] Phone Care Team Providers Care Record Clerk Name Role Phone Jann Agrawal MD Primary Care Provider [phone] Allergies No known active allergies Medications ibuprofen [...] TIMES A DAY EVERY DAY. 4 Active budesonide-formo teroL (SYMBICORT) 80-4.5 mcg/actuation inhaler Inhale 2 puffs by mouth 2 (two) times a day. Rinse mouth with water after use to reduce aftertaste and incidence of candidiasis. Do not swallow. 13 g 2 5 Active albuterol 2.5 mg /3 mL (0.083 %) nebulizer solutionIndicati ons:Mild intermittent asthma with acute exacerbation Take 3 mL (2.5 mg total) by nebulization every 6 (six) hours if needed for wheezing or shortness of breath. 1080 mL 1 5 Active loratadine (CLARITIN) 10 mg tablet Take 1 tablet (10 mg total) by mouth 1 (one) time each day. 90 each 1 5 Active sodium chloride (OCEAN) 0.65 % nasal spray Administer 1 spray into each nostril if needed for congestion. 15 mL 3 5 026 Active budesonide-formo teroL (SYMBICORT) 160-4.5 mcg/actuation inhaler Inhale 2 puffs by mouth 2 (two) times a day. Rinse mouth with water after use to reduce aftertaste and incidence of candidiasis. Do not swallow. 3 each 3 5 026 Active inhalational spacing device (Aerochamber MV) inhaler Use as instructed 1 each 5 026 Active albuterol HFA (Proventil HFA) 90 mcg/actuation inhaler Inhale 2 puffs by mouth every 4 (four) hours if needed for wheezing or shortness of breath. 6.7 g 2 5 026 Active hydrOXYzine HCL (ATARAX) 25 mg tabletIndication s:Anxiety Take 1 tablet (25 mg total) by mouth every 6 (six) hours if needed for anxiety. 90 each 5 Active meclizine (ANTIVERT) 12.5 mg tablet Take 1 tablet (12.5 mg total) by mouth 3 (three) times a day if needed for dizziness. 90 tablet 5 Active SUMAtriptan (IMITREX) 25 mg tablet Take 1 tablet (25 mg total) by mouth 1 (one) time if needed for migraine. May repeat dose once in 2 hours if no relief. Do not exceed 2 doses in 24 hours. 28 tablet 1 5 025 Active fluticasone propionate (FLONASE) 50 mcg/actuation nasal spray Administer 2 sprays into each nostril 1 (one) time each day. Shake gently. Before first use, prime pump. After use, clean tip and replace cap. 16 g 2 5 026 Active sodium chloride (OCEAN) 0.65 % nasal spray Administer 1 spray into each nostril if needed for congestion. 15 mL 11 5 Active loratadine (CLARITIN) 10 mg tablet Take 1 tablet (10 mg total) by mouth 1 (one) time each day if needed for allergies. 90 each 5 025 Active Active Problems Problem Noted Date Diagnosed Date [...] 11:59 PM EDT Hospital Encounter CT Scan - [address] [phone] Disorder of maxillary sinus; Dizziness; Pressure in head Discharge Disposition: Home or Self Care 02/16/2025 1:00 PM EDT Office Visit Adult Medicine [address] [phone] Jann Agrawal MD Mild intermittent asthma without complication (Primary Dx); Disorder of maxillary sinus; At high risk for falls; History of ventriculoperitoneal shunting; Anxiety; Dizziness; Pressure in head; Tinnitus, left ear; Benign paroxysmal positional vertigo, unspecified laterality; Dysphagia, unspecified type; Nonintractable headache, unspecified chronicity pattern, unspecified headache type; Chronic sinusitis, unspecified location 02/05/[address] [place] [address] Saida Du MD from Last 3 Months Surgical History Surgery Date Site/Laterality Comments SECTION PROCEDURE: LA DELIVERY ONLY HEMORRHOID SURGERY PROCEDURE: LA INCISION THROMBOSED HEMORRHOID EXTERNAL OTHER SURGICAL HISTORY PROCEDURE: LA CRANIOPLASTY SKULL DEFECT REPARATIVE BRAIN SURG; COMMENT: AV shunt Medical History Medical History Date Comments Mild persistent asthma DX:Mild p ersistent asthma Hydrocephaly (CMS/HCC V24, CMS/HCC V28) DX:Hydrocephaly ([facility]); COMMENT: Papiledema Family History Medical History Relation [...] Births 3 3 2 1 0 0 3 3 Date Outcome GA [...] Care Team (Late st Contact Info) Description 05/25/2025 10:45 AM EDT Appointment [facility] Xray [address] [place] [address] Agatha Kessler, DIRECTOR OF SECURITIES AND REAL ESTATE 06/04/2025 9:30 AM EDT Office Visit Adult Medicine [address] [phone] Jann Agrawal MD [address] [place], [place] 08/18/2025 10:00 AM EST Office Visit Obstetrics and Gynecology - [address] [phone] Bart Us, CNM [address] [place] [address] 12/09/2025 3:00 PM EDT Office Visit Adult [address] [phone] Jann Agrawal MD [address] [place], [place] Health Maintenance Due Date Last Done Comments [...] Diagnosis Comments CT SINUSES WO CONTRAST STAT 02/17/2025 2:16 PM EDT Disorder of maxillary sinus Dizziness Pressure in head LIPID PANEL WITH REFLEX TO DIRECT LDL Routine 08/27/2024 10:48 AM EST Class 2 obesity due to excess calories without serious comorbidity with body mass index (BMI) of 39.0 to 39.9 in adult HPV Routine 11/15/2023 HEPATITIS C SCREENING Routine [...] Signed Date: 02/17/2025 15:01 ET Workstation ID: [id number] Transcribed By: Self Edit Transcribed Date: 02/17/2025 [...] Signed Date: 02/17/2025 15:01 ET Workstation ID: [id number] Transcribed By: Self Edit Transcribed Date: 02/17/2025 14:39 ET us Jann Agrawal MD [facility] CT PROCEDURES Final Res ult * Lipid panel with reflex to direct LDL (08/27/2024 10:48 AM EST) Cholesterol 166 0 - 200 mg/dL LAB CHEMISTRY METHOD 08/27/2024 6:42 PM EST [facility] Triglycerides 130 0 - 150 mg/dL LAB CHEMISTRY METHOD 08/27/2024 6:42 PM [facility] HDL 64 >=40 mg/dL LAB CHEMISTRY METHOD 08/27/2024 6:42 PM [facility] LDL Calculated 76 0 - 100 mg/dL LAB CHEMISTRY METHOD 08/27/2024 6:42 PM [facility] VLDL Cholesterol Yordy 26 mg/dL LAB CHEMISTRY METHOD 08/27/2024 6:42 PM [facility] Non HDL Chol. (LDL+VLDL) 102 <145 mg/dL LAB CHEMISTRY METHOD 08/27/2024 6:42 PM [facility] Chol/HDL Ratio 2.6 0.0 - 4.4 LAB CHEMISTRY METHOD 08/27/2024 6:42 PM [facility] Blood Venous blood specimen / Unknown Venipuncture / Unknown 08/27/2024 10:48 AM EST 08/27/2024 10:48 AM EST Jann Agrawal MD LAB BLOOD ORDERABLES Final Result [facility] [address] [place] [address], * Cervical Cancer Screening: HPV (11/15/2023) [facility] Cervical Cancer Screening: HPV negative interpretation abstracted Historical Provider HEALTH MAINTENANCE Final Result * Hepatitis C Screening (09/02/2018) [facility] Hepatitis C Screening abstracted Historical Provider HEALTH MAINTENANCE Final Result from Last 3 Months or Most Recently Relevant to Health Maintenance Insurance [facility] MEDICARE ADVANTAGE MEDICAID - [place] Care Teams Record Clerk Relationship Specialty Start Date End Date Jann Agrawal MD [address] [place] [address] PCP - General 11/12/23
--- OUTSIDE RECORDS SUMMARY | 2025-04-15 10:10 | XMS_ITS | Clinical Summary ---
Author Organization [address] Address [address] [place] [phone] Phone Care Team Providers Care Ammunition Assembly I Laborer Name Role Phone Jann Agrawal MD Primary [...] Active Active Problems No known active problems Social History Tobacco Use Types Packs/Day Years Used Date Smoking Tobacco: Never Assessed Comments Unknown Sex and Gender Information Value Date Recorded Sex Assigned at Not on file Legal Sex Female 12:53 PM EDT Gender Identity Not on file Sexual Orientation Not on file Plan of Treatment Health Maintenance Due Date Last Done Comments HIV screening 2002 Hepatitis C screening 2007 Tetanus adult (Td q 10,TDAP once) 2009 Cervical cancer screening 09/18/2021 09/18/2018 Covid-19 vaccine series (2023- season) 2025 Influenza vaccine 04/12/2025 07/07/2024, 11/09/2023 RSV Immunization (1 - 1-dose 75+ series) 2064 Meningococcal B Vaccine Aged Out No l onger eligible based on patient's age to complete this topic Meningococcal Vaccine Aged Out No susana kesha eligible based on patient's age to complete this topic Pneumococcal Vaccine (2 - 49 years) Aged Out No longer eligible b ased on patient's age to complete this topic Insurance [id number] MEDICAID [facility] [id number] MEDICAID [facility] [id number] MEDICAID [facility] Care Teams Ammunition Assembly I Laborer Relationship Specialty Start Date End Date Jann Agrawal MD [address] [place] [address] PCP - General Internal Medicine 12/31/23
--- OUTSIDE RECORDS SUMMARY | 2025-04-15 10:10 | XMS_ITS | Encounter Summary ---
Author Organization [facility] Address [address] [facility] [address] [place] [address] Phone Care Team Providers Care Community Development Planner Name Role Phone Jann Agrawal MD Primary Care Provider [phone] Encounter Details Date Type Department Care Team (Late st Contact Info) Description 01/07/2025 Procedure Pass [facility], Ct Scan - [address] [address] Social History Tobacco Use Types Packs/Day Years [...] on file Sexual Orientation Not on file documented as of this encounter Functional Status * Calculated C-SSRS Risk Score (Lifetime/Recent) Answer Date of Assessment Author No Risk Indicated 01/07/2025 9:02 AM EDT Meme Carias RN * [place] Suicide Severity Rating Scale (Screener/Recent Self-Report) Question Answer Date of Assessment Author 1. Wish to be (Past 1 Month) No 025 9:02 AM ROJAST Meme Carias RN 2. Non-Specific Active Suici louie Thoughts (Past 1 Month) No 01/07/2025 9:02 AM ROJAST Meme Carias, VARSHA 6. Suicidal Behavior (Lifetime) No 9:02 AM EDT Meme Carias RN documented as of this encounter Plan of Treatment Not on file documented as of this encounter Visit Diagnoses Not on filedocumented in this encounter Care Teams Community Development Planner Relationship Specialty Start Date End Date Jann Agrawal MD [address] [place] [address] PCP - General 01/07/25 documented as of this encounter Additional Source Comments The information contained in this document represents components of the legal health record. It is not the complete legal health record.[facility]
[2025-04-15 10:14] VITALS: O2SAT 98
[2025-04-15 10:31] VITALS: PULSE 95; RESP 22; O2SAT 96
[2025-04-15] MEDS: Albuterol Sulfate 2.5 MG, Albuterol/Iprat 2.5/0.5MG 3 ML 3 ML INHALE (10:35)
[2025-04-15 11:42] VITALS: BP 109/61; PULSE 91; RESP 16; TEMP 36.6; O2SAT 99
[2025-04-15 11:48] VITALS: BP 109/61; PULSE 91; RESP 16; TEMP 36.6; O2SAT 99
== END 2025-04-15 11:51 | disposition home or self-care (01) ==
PROVIDERS: Emergency Provider Emergency Medicine; PCP Internal Medicine
DX: J02.9 Acute pharyngitis, unspecified (principal); J45.909 Unspecified asthma, uncomplicated; R51.9 Headache, unspecified; R07.89 Other chest pain; R05.9 Cough, unspecified; R11.0 Nausea; Z03.818 Encounter for observation for suspected exposure to other biological agents ruled out; Z79.899 Other long term (current) drug therapy
CPT/HCPCS: 71046; 80053; 83735; 84702; 85025; 86140; 87502; 87635; 87651; 93005; 94640; 96361; 96374; 96375; 99284; 99285; J0131; J1885

== ENCOUNTER → 2025-04-15 09:16 | Outpatient (BNV) | payer MEDICARE, MEDICAID, SELFPAY | PROVIDERS: Emergency Provider Emergency Medicine; PCP Internal Medicine; Visit Provider Internal Medicine Cardiovascular Disease | DX: R00.0 Tachycardia, unspecified (principal) | CPT/HCPCS: 93010 ==

== ENCOUNTER 2025-04-21 18:08 | Emergency (ER) | payer MEDICARE, MEDICAID, SELFPAY ==
[2025-04-21] VITALS (7 sets, daily range): BP systolic 119–146; BP diastolic 58–115; PULSE 102–122; RESP 20–28; TEMP 36.5–37.2; O2SAT 91–98; BMI 40.3
--- NOTE | 2025-04-21 | ECG_ITS ---
Test Reason : DYSPNEA Blood Pressure : */* mmHG Vent. Rate : 109 BPM Atrial Rate : 109 BPM P-R Int : 158 ms QRS Dur : 96 ms QT Int : 332 ms P-R-T Axes : 61 63 23 degrees QTcB Int : 447 ms Sinus tachycardia Possible Left atrial enlargement Borderline ECG When compared with ECG of 15-Apr-2025 09:16, No significant change was found Referred By: Generic ED Physician Electronically Signed By: NAREN RIBEIRO MD
--- NOTE | ~2025-04-21 | XR_ITS ---
CLINICAL HISTORY: sob 2 view chest x-ray Comparison: CR/SR - XR CHEST 2 VIEWS - 04/15/25 09:44 EDT Findings: Subtle focal opacity right upper lobe. No significant pleural effusion or pneumothorax. Normal size heart. No acute fracture. Right-sided DATAPOWER DEVELOPER shunt catheter tubing noted. IMPRESSION: Subtle focal opacity right upper lobe, developing pneumonia or aspiration not excluded.. This document has been electronically signed by: Andriy Love MD on 04/21/2025 19:39:07
--- OUTSIDE RECORDS SUMMARY | 2025-04-21 18:49 | XMS_ITS | Encounter Summary ---
Author Organization [facility] Address [address] [facility] [address] [place] [address] Phone Care Team Providers Care Solderer Dipper Name Role Phone Jann Agrawal MD Primary Care Provider [phone] Encounter Details Date Type Department Care Team (Late st Contact Info) Description 01/07/2025 Procedure Pass [facility], Ct Scan - [address] [address] Social History Tobacco Use Types Packs/Day Years [...] 9:02 AM EDT Meme Carias RN * [place] Suicide Severity Rating Scale (Screener/Recent Self-Report) Question [...] on filedocumented in this encounter Care Teams Solderer Dipper Relationship Specialty Start Date End Date Jann Agrawal MD [address] [place] [address] PCP - General 01/07/25 documented as of this encounter Additional Source Comments The information contained in this document represents components of the legal health record. It is not the complete legal health record.[facility]
--- OUTSIDE RECORDS SUMMARY | 2025-04-21 18:50 | XMS_ITS | Clinical Summary ---
Author Organization [facility] [address] [place] [address] [place] [phone] Phone Care Team Providers Care Supervisor Laboratory Name Role Phone Jann Agrawal MD Primary [...] PM EDT Hospital Encounter CT Scan - [address] [phone] Disorder of maxillary sinus; Dizziness; Pressure in head Discharge Disposition: Home or Self Care 02/16/2025 1:00 PM EDT Office Visit Adult Medicine [address] [phone] Jann Agrawal MD Mild intermittent asthma without complication (Primary Dx); Disorder of maxillary sinus; At high risk for falls; History of ventriculoperitoneal shunting; Anxiety; Dizziness; Pressure in head; Tinnitus, left ear; Benign paroxysmal positional vertigo, unspecified laterality; Dysphagia, unspecified type; Nonintractable headache, unspecified chronicity pattern, unspecified headache type; Chronic sinusitis, unspecified location 02/05/[address] [place] [address] Saida Du MD from Last 3 Months Surgical History Surgery Date Site/Laterality Comments SECTION PROCEDURE: AK DELIVERY ONLY HEMORRHOID SURGERY PROCEDURE: [place] INCISION THROMBOSED HEMORRHOID EXTERNAL OTHER SURGICAL HISTORY PROCEDURE: [place] CRANIOPLASTY SKULL DEFECT REPARATIVE BRAIN SURG; COMMENT: AV shunt Medical History Medical History Date Comments Mild persistent asthma DX:Mild p ersistent asthma Hydrocephaly (CMS/HCC V24, CMS/HCC V28) DX:Hydrocephaly ([facility]); COMMENT: Papiledema Family History Medical History Relation [...] Info) Description 05/25/2025 10:45 AM EDT Appointment [facility] Xray [address] [place] [address] Agatha Kessler, CAPPER MACHINE OPERATOR 06/04/2025 9:30 AM EDT Office Visit Adult Medicine [address] [phone] Jann Agrawal MD [address] [place], [place] 08/18/2025 10:00 AM EST Office Visit Obstetrics and Gynecology - [address] [phone] Bart Us, CNM [address] [place] [address] 12/09/2025 3:00 PM EDT Office Visit Adult [address] [phone] Jann Agrawal MD [address] [place], [place] Health Maintenance Due Date Last Done [...] Procedure Name Priority Date/Time Associated Diagnosis Comments EXTERNAL XRAY REPORT Routine 04/15/2025 11:[address] SINUSES WO CONTRAST STAT 02/17/2025 2:16 [...] Recently Relevant to Health Maintenance Results * External Xray Report (04/15/2025 11:21 AM EDT) Anatomical Region Laterality Modality Radiographic Gabrielle ging us Historical Provider MD DONALD XR PROCEDURES Final R esult * CT Sinuses wo Contrast (02/17/2025 2:16 [...] Signed Date: 02/17/2025 15:01 ET Workstation ID: [id number] Transcribed By: Self Edit Transcribed Date: 02/17/2025 [...] Signed Date: 02/17/2025 15:01 ET Workstation ID: [id number] Transcribed By: Self Edit Transcribed Date: 02/17/2025 14:39 ET Jann Agrawal MD IMG CT PROCEDURES Final Res ult * Lipid panel with reflex to direct LDL (08/27/2024 10:48 AM EST) [facility] Cholesterol 166 0 - 200 mg/dL LAB CHEMISTRY METHOD 08/27/2024 6:42 PM EST [facility] Triglycerides 130 0 - 150 mg/dL LAB CHEMISTRY METHOD 08/27/2024 6:42 PM EST [facility] HDL 64 >=40 mg/dL LAB CHEMISTRY METHOD 08/27/2024 6:42 PM EST [facility] LDL Calculated 76 0 - 100 mg/dL LAB CHEMISTRY METHOD 08/27/2024 6:42 PM [facility] VLDL Cholesterol Yordy 26 mg/dL LAB CHEMISTRY METHOD 08/27/2024 6:42 PM EST [facility] Non HDL Chol. (LDL+VLDL) 102 <145 mg/dL LAB CHEMISTRY METHOD 08/27/2024 6:42 PM EST [facility] Chol/HDL Ratio 2.6 0.0 - 4.4 LAB CHEMISTRY METHOD 08/27/2024 6:42 PM [facility] Blood Venous blood specimen / Unknown Venipuncture / Unknown 08/27/2024 10:48 AM EST 08/27/2024 10:48 AM EST Jann Agrawal MD LAB BLOOD ORDERABLES Final Result [facility] [address] [place] [address], [place] [phone] * Cervical Cancer Screening: HPV (11/15/2023) [facility] Cervical Cancer Screening: HPV negative interpretation abstracted Historical Eliza [facility] HEALTH MAINTENANCE Final Result * Hepatitis C Screening (09/02/2018) [facility] Hepatitis C Screening abstracted us Historical Provider HEALTH MAINTENANCE Final Result from Last 3 Months or Most Recently Relevant to Health Maintenance Insurance BL[place]OSS - [place] MEDICARE AD[place]ANT[place] - [place] Care Teams Supervisor Laboratory Relationship Specialty Start Date End Date Jann Agrawal MD [address] [place] [address] PCP - General 11/12/23
--- OUTSIDE RECORDS SUMMARY | 2025-04-21 18:50 | XMS_ITS | Clinical Summary ---
Author Organization [address] Address [address] [place] [phone] Phone Care Team Providers Care Wood Room Supervisor Name Role Phone Jann Agrawal MD Primary [...] patient's age to complete this topic Insurance [id number] MEDICAID [facility] [id number] MEDICAID [facility] [id number] MEDICAID [facility] Care Teams Wood Room Supervisor Relationship Specialty Start Date End Date Jann Agrawal MD [address] [place] [address] PCP - General Internal Medicine 12/31/23
--- OUTSIDE RECORDS SUMMARY | 2025-04-21 18:50 | XMS_ITS | Clinical Summary ---
Author Organization [facility] Address [address] [facility] [address] [place] [address] Phone Care Team Providers Care District Home Economics Agent Name Role Phone Jann Agrawal MD Primary Care Provider [phone] Allergies No known active allergies Social History [...] (18-6 5 YEARS) 2007 PAP SMEAR 2010 INFLUENZA VACCINE (#1) 2025 COVID-19 VACCINE (2023-2 5 season) 2025 SCREENING FOR DIABETES 01/08/2028 01/07/2025 HEPATITIS A [...] topic Medical Devices Not on file [place] [address] [place] [address] MEDICARE PPO BLUE REPLAC[place] [address] MEDICARE PART A & B [facility] MEDICARE PPO BLUE REPLACEMENT [address] [place], [place] [address]HEALTH MEDICARE PART A & B [place] MED[place] P[place] BLUE REPLACEMENT Member Subscriber Plan / Payer ( fective 2013-Present) Name:Tanisha Garg Relation to Subscriber:Self Name:Tanisha Garg Payer ID:[id number] (NAIC) Type:Medicare Address: [facility] [id number] B Member Subscriber Plan / Payer (Ef fective 2013-Present) Name:Tanisha Garg Member ID:[id number] Relation to Subscriber:Self Name:Tanisha Garg Subscriber ID:[id number] Payer ID:[id number] Group ID:Not on file Type:Medicare Address: [employer] [address] [place] [address] BLUE [place] P[place] BLUE REPLACEMENT [facility] MEDICARE PART A & B Member Subscriber Plan / Payer (Ef fective 2013-Present) Name:Tanisha Garg Member ID:[id number] Relation to Subscriber:Self Name:Tanisha Garg Subscriber ID:[id number] Payer ID:[id number] Group ID:Not on file Type:Medicare Address: [employer] [address] [place] [address] [place] [address] MEDICARE PPO BLUE REPLACEMENT [facility] MEDICARE PART A & [place] [address] [place] [address] MEDICARE PPO BLUE REPLACEMENT [facility] MEDICARE PART A & B Care Teams District Home Economics Agent Relationship Specialty Start Date End Date Jann Agrawal MD [address] [place] [address] PCP - General 01/07/25 Additional Source Comments The information contained in this document represents components of the legal health record. It is not the complete legal health record.[facility]
[2025-04-21 19:27] LABS: MANUAL DIFF FLAG NO
[2025-04-21 19:36] LABS: Hematocrit 34.7 % (37.0-47.0); Hemoglobin 11.0 g/dl (12.0-16.0); Imm Gran Abs Auto 0.15 X10*3/uL (0.00-0.03); Imm Gran Pct Auto 0.7 % (0.0-0.4); Lymphocytes Absolute Auto 1.0 X10*3/uL (1.2-4.9); Mean Corpuscular HGB Conc 31.7 g/dl (31.0-35.0); Mean Corpuscular Hemoglobin 23.9 pg (27.0-33.0); Mean Corpuscular Volume 75.3 fL (80.0-98.0); NRBC Abs Auto 0.000 X10*3/uL (0.0-0.012); NRBC Pct Auto 0.0 /100WBC (0.0-0.2); Platelet Count 419 X10*3/uL (160-400); Red Blood Count 4.61 X10*6/uL (4.20-5.50); White Blood Count 21.3 X10*3/uL (4.8-10.8)
[2025-04-21 19:47] LABS: COVID-19 Test Negative (Negative); IDNOW Serial# 152EDE1D
[2025-04-21 19:48] LABS: Alanine Aminotransferase 23 U/L (0-31); Albumin Level 4.3 g/dL (3.5-5.0); Alkaline Phosphatase 100 U/L (39-117); Anion Gap 14 (12-20); Aspartate Amino Transferase 21 U/L (5-31); Blood Urea Nitrogen 10 mg/dL (9-16); Calcium 8.5 mg/dL (8.4-10.2); Carbon Dioxide 21 mmol/L (22-29); Chloride 110 mmol/L (96-108); Creatinine Clr Calc Pharmacy 108.4; Estimated Glomerular Filt Rate > 60; IDNOW Serial# 16C4AD1C; Influenza B2 Negative (Negative); Potassium 3.6 mmol/L (3.3-5.1); Sodium 141 mmol/L (135-145); Total Protein 7.3 g/dL (6.5-8.0)
[2025-04-21] MEDS: Albuterol Sulfate 2.5 MG, Albuterol/Iprat 2.5/0.5MG 3 ML 3 ML INHALE (20:13)
--- NOTE | 2025-04-21 20:17 | PC.NURSE ---
respiratory at bedside administering breathing treatment
--- NOTE | 2025-04-21 20:37 | ED_ITS ---
HPI - SOB/Dyspnea General Chief Complaint: Dyspnea Stated Complaint: Asthma exacerbation, on duo neb Time Seen by Provider: 04/21/25 19:09 Source: patient Mode of arrival: EMS History of Present Illness ED Provider: Oscar HOOKS Narrative: 34-year-old female with presentation for worsening shortness of breath over the past 2-3 days, has known history of asthma, denies any fevers but states that she has had some chills, reports that she was sick a proximally 2 weeks ago, currently denies any sick contacts, denies any GI or symptoms. Related Data Previous Rx's ?Medication ?Instructions ?Recorded omeprazole 40 mg capsule,delayed 40 mg PO DAILY #30 ca ps 03/01/25 release ondansetron 4 mg disintegrating 4 mg PO Q6H PRN nausea and 03/01/25 tablet vomiting #10 tabs azithromycin 250 mg tablet 250 mg PO DAILY 4 days #4 t abs 04/15/25 budesonide-formoterol HFA 160 2 puff inhalation BID #1 0.2 grams 04/15/25 mcg-4.5 mcg/actuation aerosol inhaler prednisone 20 mg tablet 20 mg PO DAILY #12 tabs 12/04 azithromycin 250 mg tablet 250 mg PO DAILY 4 days #4 t abs 04/21/25 prednisone 20 mg tablet 40 mg (2 x 20 mg) PO DAILY 4 days 04/21/25 #8 tabs Allergies Allergy/AdvReac Type Severity Reaction Status Date / Time No Known Allergies (No Known Allergy Verified 04/21/25 18:19 Allergies*) Review of Systems 2 Review of Systems: Pertinent positives and negatives as stated in HPI PMFSH Past Medical History Attestation statement: The following information was validated with the patient. Source: nursing notes reviewed Social History Social History Alcohol intake: never Smoked in Last 30 Days: No Use of substances other than those prescribed or required for medical reasons: No Advance Directives: No Advance Directives Information Provided: No Do you have a plan to hurt others: No Plan Physical Exam 2 Exam: Exam: VITAL SIGNS: Reviewed. GENERAL: Well developed, well nourished, in no acute distress. HEAD: Normocephalic/atraumatic EYES: PERRLA, EOMI EARS: Ext canals without abnormality NOSE: Nares patent bilateral OROPHARYNX: no oral lesions noted, posterior pharynx clear NECK: Supple, no adenopathy LUNGS: Decreased breath sounds bilaterally, mild expiratory wheeze, increased work of breathing with tachypnea SpO2<94> CARDIOVASCULAR: Regular rate and rhythm without noted murmurs ABDOMEN: Soft, non-tender, non-distended with bowel sounds. MUSCULOSKELETAL: No tenderness, deformities, or effusions noted on gross inspection. EXTREMITIES: No cyanosis, clubbing or edema. SKIN: Inspection of the skin reveals no rashes NEUROLOGIC: Alert and oriented x 4. Strength and sensation to light touch were grossly intact x 4. Vital Signs: Vital Signs: Last Vital Signs Temp 97.7 F 04/21/25 18:13 Pulse 122 H 04/21/25 20:51 Resp 27 H 04/21/25 20:51 BP 124/58 L 04/21/25 20:32 Pulse Ox 94 04/21/25 20:32 O2 Del Method Room Air 04/21/25 20:32 BMI result Body Mass Index 40.3 Medications Administered Discontinued Medications Generic Name Dose Route Start Last Admin Trade Name Freq PRN Reason Stop Dose Admin Azithromycin 500 mg 04/21/25 20:54 04/21/25 20:59 Azithromycin 500 Mg Tablet PO 04/21/25 20:55 500 mg ONCE ONE Administration Benzonatate 200 mg 04/21/25 20:53 04/21/25 20:59 Benzonatate 100 Mg Capsule PO 04/21/25 20:54 200 mg ONCE ONE Administration Albuterol Sulfate 2.5 mg/ 0 mg 04/21/25 20:09 04/21/25 20:13 Albuterol/Ipratropium 3 ml INHALE 04/21/25 20:10 2 dose ONCE ONE Administration Levalbuterol HCl 3.75 mg/ 0 mg 04/21/25 20:43 04/21/25 20:46 Ipratropium [place] 0.5 mg INHALE 04/21/25 20:44 4 dose ONCE ONE Administration Medical Decision Making Medical Decision Making [facility] Narrative: 1945: 34-year-old female with history and clinical presentation, DD DX: Asthma exacerbation, will rule out pneumonia as well as viral etiology that the latter is felt to be less likely. My interpretation of the EKG is that there is sinus tachycardia, HR-109, no STEMI, CT/QRS/QTC/QTC is otherwise within normal limits. Patient received 125 mg of IV Solu-Medrol and 1 DuoNeb EN route. 194: ED bronch protocol 2039: I reviewed interpreted all investigations and there is a steroid induced leukocytosis as patient is otherwise afebrile, there is a chronic anemia no thrombocytopenia. There is no TERESA/electrolyte or liver enzyme derangements. Viral testing is negative for COVID-19/influenza. My interpretation is in agreement with radiology's impression that there is an infiltrate in the upper right lobe suggestive of pneumonia. Will treat patient, however at this time I do not think that patient will require inpatient admission, she will otherwise be discharged with a short course of steroids and antibiotics. On re-evaluation patient is feeling much improved and she is otherwise well appearing and stable for discharge to home. Differential Diagnosis Differential Diagnoses: The differential diagnosis associated with the presentation includes See above Admission/Observation Consideration of admission/observation: Escalation of care including admission/observation considered See above Lab Data MDM Lab Attestation statement: I reviewed the patient's lab results. See above 04/21/25 19:21 04/21/25 19:21 Labs: Lab Results 04/21/25 Range/Units 19:21 WBC 21.3 H (4.8-10.8) X10*3/uL RBC 4.61 (4.20-5.50) X10*6/uL Hgb 11.0 L (12.0-16.0) g/dl Hct 34.7 L (37.0-47.0) % MCV 75.3 L (80.0-98.0) fL MCH 23.9 L (27.0-33.0) pg MCHC 31.7 (31.0-35.0) g/dl RDW 17.0 H (11.0-16.0) % Plt Count 419 H (160-400) X10*3/uL MPV 9.6 (9.4-12.3) fL Immature Gran % (Auto) 0.7 H (0.0-0.4) % Neut % (Auto) 89.3 H (45-73) % Lymph % (Auto) 4.6 L (20-40) % [place] % (Auto) 4.3 (2-11) % Eos % (Auto) 0.9 (0-4) % Baso % (Auto) 0.2 (0-2) % Lymph # (Auto) 1.0 L (1.2-4.9) X10*3/uL [place] # (Auto) 0.9 (0.1-1.2) X10*3/uL Eos # (Auto) 0.2 (0.0-0.4) X10*3/uL Baso # (Auto) 0.1 (0.0-0.2) X10*3/uL Abs Immat Gran (auto) 0.15 H (0.00-0.03) X10*3/uL Absolute Neuts (auto) 19.0 H (2.0-8.3) x10*3/uL Absolute Nucleated RBC 0.000 (0.0-0.012) X10*3/uL Nucleated RBC % (auto) 0.0 (0.0-0.2) /100WBC Sodium 141 (135-145) mmol/L Potassium 3.6 (3.3-5.1) mmol/L Chloride 110 H (96-108) mmol/L Carbon Dioxide 21 L (22-29) mmol/L Anion Gap 14 (12-20) BUN 10 (9-16) mg/dL Creatinine 0.74 (0.5-1.4) mg/dL Estim Creat Clear Calc 108.4 Estimated GFR > 60 Random Glucose 104 (60-115) mg/dL Calcium 8.5 (8.4-10.2) mg/dL Total Bilirubin 0.3 (0.0-1.0) mg/dL AST 21 (5-31) U/L ALT 23 (0-31) U/L Alkaline Phosphatase 100 (39-117) U/L Total Protein 7.3 (6.5-8.0) g/dL Albumin 4.3 (3.5-5.0) g/dL COVID-19 (SHRUTHI) Negative (Negative) COVID-19 Clin Com See Note Influenza Type A (FREDA) Negative (Negative) Influenza Type B (FREDA) Negative (Negative) Influenza A & B Note See Note Independent Interpretation I performed an independent interpretation of an: Plain X-Ray Radiology Impression Discussion of test interpretation with radiology: I have reviewed the radiologist's reading. Critical Care Time Critical Care Time Critical Care Time: Yes Total Critical Care Time: 30 Attestation: I personally attest to this time spent taking care of the patient. Discharge Plan Discharge Clinical Impression: Asthma with exacerbation, Pneumonia Patient Disposition: Home, Self-Care Instructions: Asthma (ED), Pneumonia (ED) Additional Instructions: Complete the steroids and antibiotics and been prescribed. Recommend lpcs-ien-wtaewfc cough medication. Take Tylenol/ibuprofen as needed for any body aches/headache/temperatures greater than 100.4. Follow-up with your primary care doctor and do not hesitate to return to the emergency room for any acute worsening of your symptoms. Prescriptions: New azithromycin 250 mg tablet 250 mg PO DAILY 4 Days Qty: 4 0RF Rx Instructions: start on day 2 of therapy prednisone 20 mg tablet 40 mg PO DAILY 4 Days Qty: 8 0RF No Action ondansetron 4 mg tablet,disintegrating 4 mg PO Q6H PRN (Reason: nausea and vomiting) Qty: 10 0RF omeprazole 40 mg capsule,delayed release(DR/EC) 40 mg PO DAILY Qty: 30 0RF azithromycin 250 mg tablet 250 mg PO DAILY 4 Days Qty: 4 0RF Rx Instructions: start on day 2 of therapy prednisone 20 mg tablet 20 mg PO DAILY Qty: 12 0RF Rx Instructions: Take 3 tablets by mouth daily for 2 days then take 2 tablets by mouth daily for 3 days. budesonide-formoterol 160-4.5 mcg/actuation HFA aerosol inhaler 2 puff inhalation BID Qty: 10.2 0RF Referrals: Physician,Unknown J [Primary Care Provider, Medical] Stand Alone Forms: Work/School Release Print Language: Icelandic
--- NOTE | 2025-04-21 20:43 | PC.NURSE ---
pt reports some relief after breathing treatment, rt at bedside giving second breathing treatment
[2025-04-21] MEDS: levalbuterol HCL 3.75 MG, Ipratropium Bromide 0.5 MG INHALE (20:46)
--- NOTE | 2025-04-21 21:02 | PC.NURSE ---
pt medicated per oct, tolerated whole well with water
== END 2025-04-21 22:00 | disposition home or self-care (01) ==
PROVIDERS: Emergency Provider Student in an Organized Health Care Education/Training Program
DX: J18.9 Pneumonia, unspecified organism (principal); J45.901 Unspecified asthma with (acute) exacerbation; R06.02 Shortness of breath
CPT/HCPCS: 36415; 71046; 80053; 85025; 87502; 87635; 93005; 94640; 99284; 99285

== ENCOUNTER → 2025-04-21 18:22 | Outpatient (BNV) | payer MEDICARE, MEDICAID, SELFPAY | PROVIDERS: Emergency Provider Student in an Organized Health Care Education/Training Program; Visit Provider Internal Medicine Cardiovascular Disease | DX: R00.0 Tachycardia, unspecified (principal) | CPT/HCPCS: 93010 ==

== ENCOUNTER → 2025-04-21 19:10 | Outpatient (BNV) | payer MEDICARE, MEDICAID, SELFPAY | PROVIDERS: Emergency Provider Student in an Organized Health Care Education/Training Program; Visit Provider Radiology Diagnostic Radiology | DX: R91.8 Other nonspecific abnormal finding of lung field (principal) | CPT/HCPCS: 71046 ==

== ENCOUNTER 2025-05-25 14:43 | Emergency (ER) | payer MEDICARE, MEDICAID, SELFPAY ==
--- NOTE | ~2025-05-25 | XR_ITS ---
EXAMINATION: XR CERVICAL SPINE CLINICAL INFORMATION: shunt eval COMPARISON: None available. TECHNIQUE: 2 views of the cervical spine were obtained. FINDINGS: Shunt tubing traverses the right neck and skull region Tubing appears grossly in tact. There is straightening of the cervical spine with disc space narrowing at C4-5 and C5-6. XR/XR cervical spine 2V IMPRESSION: Grossly intact shunt tubing. C4-5 and C5-6: mild degenerative disc disease. Electronically signed by: Roberto Drake MD 05/25/2025 04:14 PM EDT
--- NOTE | ~2025-05-25 | XR_ITS ---
EXAMINATION: XR CHEST CLINICAL INFORMATION: shunt eval COMPARISON: 04/21/2025 TECHNIQUE: Frontal view of the chest was obtained. FINDINGS: Shunt tubing traverses the right neck, chest, and abdomen. Tubing appears intact. Lungs are clear. Heart size is normal. XR/XR chest 1V IMPRESSION: Intact shunt tubing. No acute disease. Electronically signed by: Roberto Drake MD 05/25/2025 04:14 PM EDT
--- NOTE | ~2025-05-25 | XR_ITS ---
EXAMINATION: XR ABDOMEN KUB CLINICAL INDICATION: shunt eval COMPARISON: None available. TECHNIQUE: AP view of the abdomen. FINDINGS: Shunt tubing traverses the right upper quadrant and loops across midline in the epigastric region. Tubing to extend into the upper pelvis on the left and terminates in the left mid abdomen. There is no discontinuity of tubing. There is a normal bowel gas pattern. XR/XR KUB IMPRESSION: Intact CONCERT MANAGER shunt tubing Normal bowel gas pattern. Electronically signed by: Roberto Drake MD 05/25/2025 04:14 PM EDT
--- NOTE | ~2025-05-25 | CT_ITS ---
EXAMINATION: CT HEAD WITHOUT CONTRAST CLINICAL INFORMATION: Severe headache, [place] shunt. COMPARISON: March 30, 2025 TECHNIQUE: Contiguous axial imaging was performed from the skull base to vertex without intravenous administration of contrast. This CT examination was performed using dose optimization techniques as appropriate, variously including the following: *Automated exposure control *Adjustment of mA and/or kV according to patient size (this includes techniques or standardized protocols for targeted exams where dose is matched to indication/reason for exam; i.e. extremities or head) *Use of iterative reconstruction technique FINDINGS: Again noted is a shunt placed through the right frontal lobe and into the right frontal horn with tip near forearm and of [place]. There is stable decompression of the right lateral ventricles There is no acute ischemic change. There is no intracranial hemorrhage. There is no mass-effect or midline shift. Basal cisterns and ventricles are within normal limits for age/cerebral volume. Orbits are symmetrical and unremarkable. There is chronic opacification of most of the right maxillary sinus and mucosal thickening in the left, increased since the prior. There is also mucosal thickening in the ethmoid air cells appear stable. There are no bony abnormalities. CT/CT head/brain wo IV con IMPRESSION: No acute intracranial abnormality. Stable right ventricular shunt with decompression of right lateral ventricle. Stable to mildly increased chronic sinus disease in the maxillary sinuses, right greater than left, and ethmoid air cells. Electronically signed by: Roberto Drake MD 05/25/2025 04:06 PM EDT RP
[2025-05-25 15:07] VITALS: BP 152/64; PULSE 94; RESP 18; TEMP 36.6; O2SAT 98; BMI 89.1
--- NOTE | 2025-05-25 15:08 | ED.GENADULT ---
HPI - General Adult General Chief complaint: Headache Stated complaint: Headache - brain tumor Time Seen by Provider: 05/25/25 17:19 Related Data Previous Rx's ?Medication ?Instructions ?Recorded omeprazole 40 mg capsule,delayed 40 mg PO DAILY #30 caps 03/01/25 release ondansetron 4 mg disintegrating 4 mg PO Q6H PRN nausea and 03/01/25 tablet vomiting #10 tabs azithromycin 250 mg tablet 250 mg PO DAILY 4 days #4 tabs 04/15/25 budesonide-formoterol HFA 160 2 puff inhalation BID #10.2 grams 04/15/25 mcg-4.5 mcg/actuation aerosol inhaler prednisone 20 mg tablet 20 mg PO DAILY #12 tabs 04/15/25 azithromycin 250 mg tablet 250 mg PO DAILY 4 days #4 tabs 04/21/25 prednisone 20 mg tablet 40 mg (2 x 20 mg) PO DAILY 4 days 04/21/25 #8 tabs Allergies Allergy/AdvReac Type Severity Reaction Status Date / Time No Known Allergies (No Known Allergy Verified 05/25/25 15:08 Allergies*) [facility] Social History Social History Alcohol intake: never Smoked in Last 30 Days: Yes Use of substances other than those prescribed or required for medical reasons: No Advance Directives: No Advance Directives Information Provided: No Do you have a plan to hurt others: No Plan Physical Exam ED Vital Signs: Vital Signs - 24 hr 05/25/25 15:07 05/25/25 16:46 Temperature 98 F Pulse Rate 94 88 Respiratory Rate 18 18 Blood Pressure 152/64 H 119/77 Pulse Oximetry 98 92 Oxygen Delivery Method Room Air Room Air BMI result Body Mass Index 89.1 Course Course Course Narrative: This is a rapid medical exam performed by Nathaniel Garza NP: Additional HPI, ROS, PE not included below will be deferred to primary provider. 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 States feels similar to episode in past where CHILDREN'S SERVICE SUPERVISOR shunt malfunctioned. Plan: labs Medications Administered Discontinued Medications Generic Name Dose Route Start Last Admin Trade Name Freq PRN Reason Stop Dose Admin Diphenhydramine HCl 50 mg 05/25/25 17:40 05/25/25 17:55 Diphenhydramine Hcl 50 Mg/Ml Vial IVPUSH 05/25/25 17:41 50 mg ONCE ONE Administration Ketorolac Tromethamine 15 mg 05/25/25 17:40 05/25/25 17:55 Ketorolac Tromethamine 15 Mg/Ml Vial IVPUSH 05/25/25 17:41 15 mg ONCE ONE Administration Metoclopramide HCl 10 mg 05/25/25 17:39 05/25/25 17:55 Metoclopramide Hcl 10 Mg/2 Ml Vial IVPUSH 05/25/25 17:40 10 mg ONCE ONE Administration Medical Decision Making Lab Data 05/25/25 15:19 05/25/25 15:19 Labs: Lab Results 05/25/25 Range/Units 15:19 WBC 9.0 (4.8-10.8) X10*3/uL RBC 5.25 (4.20-5.50) X10*6/uL Hgb 12.5 (12.0-16.0) g/dl Hct 40.2 (37.0-47.0) % MCV 76.6 L (80.0-98.0) fL MCH 23.8 L (27.0-33.0) pg MCHC 31.1 (31.0-35.0) g/dl RDW 17.0 H (11.0-16.0) % Plt Count 449 H (160-400) X10*3/uL MPV 9.4 (9.4-12.3) fL Immature Gran % (Auto) 0.4 (0.0-0.4) % Neut % (Auto) 63.6 (45-73) % Lymph % (Auto) 24.7 (20-40) % Dyer % (Auto) 6.6 (2-11) % Eos % (Auto) 4.1 H (0-4) % Baso % (Auto) 0.6 (0-2) % Lymph # (Auto) 2.2 (1.2-4.9) X10*3/uL Dyer # (Auto) 0.6 (0.1-1.2) X10*3/uL Eos # (Auto) 0.4 (0.0-0.4) X10*3/uL Baso # (Auto) 0.1 (0.0-0.2) X10*3/uL Abs Immat Gran (auto) 0.04 H (0.00-0.03) X10*3/uL Absolute Neuts (auto) 5.7 (2.0-8.3) x10*3/uL Absolute Nucleated RBC 0.000 (0.0-0.012) X10*3/uL Nucleated RBC % (auto) 0.0 (0.0-0.2) /100WBC Sodium 141 (135-145) mmol/L Potassium 3.8 (3.3-5.1) mmol/L Chloride 109 H (96-108) mmol/L Carbon Dioxide 23 (22-29) mmol/L Anion Gap 13 (12-20) BUN 9 (9-16) mg/dL Creatinine 0.69 (0.5-1.4) mg/dL Estim Creat Clear Calc 197.7 Estimated GFR > 60 Random Glucose 109 (60-115) mg/dL Calcium 9.0 (8.4-10.2) mg/dL Total Bilirubin 0.2 (0.0-1.0) mg/dL AST 26 (5-31) U/L ALT 27 (0-31) U/L Alkaline Phosphatase 126 H (39-117) U/L Total Protein 7.3 (6.5-8.0) g/dL Albumin 4.3 (3.5-5.0) g/dL Beta HCG, Quant < 2 mIU/mL COVID-19 (SHRUTHI) Negative (Negative) COVID-19 Clin Com See Note Influenza Type A (FREDA) Negative (Negative) Influenza Type B (FREDA) Negative (Negative) Influenza A & B Note See Note Discharge Plan Discharge Clinical Impression: Migraine Patient Disposition: Home, Self-Care Instructions: Migraine Headache (ED) Prescriptions: No Action ondansetron 4 mg tablet,disintegrating 4 mg PO Q6H PRN (Reason: nausea and vomiting) Qty: 10 0RF omeprazole 40 mg capsule,delayed release(DR/EC) 40 mg PO DAILY Qty: 30 0RF azithromycin 250 mg tablet 250 mg PO DAILY 4 Days Qty: 4 0RF Rx Instructions: start on day 2 of therapy prednisone 20 mg tablet 40 mg PO DAILY 4 Days Qty: 8 0RF azithromycin 250 mg tablet 250 mg PO DAILY 4 Days Qty: 4 0RF Rx Instructions: start on day 2 of therapy prednisone 20 mg tablet 20 mg PO DAILY Qty: 12 0RF Rx Instructions: Take 3 tablets by mouth daily for 2 days then take 2 tablets by mouth daily for 3 days. budesonide-formoterol 160-4.5 mcg/actuation HFA aerosol inhaler 2 puff inhalation BID Qty: 10.2 0RF Referrals: Jann Agrawal MD [Primary Care Provider, Internal Medicine] - 05/27/25 Print Language: Danish
[2025-05-25 15:25] LABS: MANUAL DIFF FLAG NO
[2025-05-25 15:27] LABS: Hematocrit 40.2 % (37.0-47.0); Hemoglobin 12.5 g/dl (12.0-16.0); Imm Gran Abs Auto 0.04 X10*3/uL (0.00-0.03); Imm Gran Pct Auto 0.4 % (0.0-0.4); Lymphocytes Absolute Auto 2.2 X10*3/uL (1.2-4.9); Mean Corpuscular HGB Conc 31.1 g/dl (31.0-35.0); Mean Corpuscular Hemoglobin 23.8 pg (27.0-33.0); Mean Corpuscular Volume 76.6 fL (80.0-98.0); NRBC Abs Auto 0.000 X10*3/uL (0.0-0.012); NRBC Pct Auto 0.0 /100WBC (0.0-0.2); Platelet Count 449 X10*3/uL (160-400); Red Blood Count 5.25 X10*6/uL (4.20-5.50); White Blood Count 9.0 X10*3/uL (4.8-10.8)
[2025-05-25 15:40] LABS: COVID-19 Test Negative (Negative); IDNOW Serial# 6674DD1D
[2025-05-25 15:41] LABS: IDNOW Serial# 08D9AD1C; Influenza B2 Negative (Negative)
[2025-05-25 15:55] LABS: Alanine Aminotransferase 27 U/L (0-31); Albumin Level 4.3 g/dL (3.5-5.0); Anion Gap 13 (12-20); Aspartate Amino Transferase 26 U/L (5-31); Blood Urea Nitrogen 9 mg/dL (9-16); Calcium 9.0 mg/dL (8.4-10.2); Carbon Dioxide 23 mmol/L (22-29); Chloride 109 mmol/L (96-108); Creatinine Clr Calc Pharmacy 197.7; Estimated Glomerular Filt Rate > 60; Potassium 3.8 mmol/L (3.3-5.1); Sodium 141 mmol/L (135-145); Total Protein 7.3 g/dL (6.5-8.0)
[2025-05-25 16:36] LABS: Alkaline Phosphatase 126 U/L (39-117)
[2025-05-25 16:46] VITALS: BP 119/77; PULSE 88; RESP 18; O2SAT 92
--- NOTE | 2025-05-25 16:51 | PC.NURSE ---
34 F presents to ED with head ache and L abdomianl pain, dizziness and off balance x 2 days, shunt placed 4 years ago from brain to stomach. A+OX4, calm, cooperative. Pt denies CP or SOB. Pt is calm, cooperative.
--- NOTE | 2025-05-25 17:43 | ED_ITS ---
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 Patient complaining that she had worsening headache on the right side very similar to previous bouts when she needed to shunt. There is no fever no chills she also has a history of migraine which also felt similar. There is some nausea associated with it. There is no focal weakness there is no fever there is no chills. There is no chest pain there is no shortness of breath there is no diaphoresis. There is no neck pain. She is from home. There has been no change in her medication. Related Data Previous Rx's ?Medication ?Instructions ?Recorded omeprazole 40 mg capsule,delayed 40 mg PO DAILY #30 ca ps 03/01/25 release ondansetron 4 mg disintegrating 4 mg PO Q6H PRN nausea and 03/01/25 tablet vomiting #10 tabs azithromycin 250 mg tablet 250 mg PO DAILY 4 days #4 t abs 04/15/25 budesonide-formoterol HFA 160 2 puff inhalation BID #1 0.2 grams 04/15/25 mcg-4.5 mcg/actuation aerosol inhaler prednisone 20 mg tablet 20 mg PO DAILY #12 tabs 12/04 azithromycin 250 mg tablet 250 mg PO DAILY 4 days #4 t abs 04/21/25 prednisone 20 mg tablet 40 mg (2 x 20 mg) PO DAILY 4 days 04/21/25 #8 tabs Allergies Allergy/AdvReac Type Severity Reaction Status Date / Time No Known Allergies (No Known Allergy Verified 05/25/25 15:08 Allergies*) Review of Systems 2 Review of Systems: Positive headache on the right side Positive nausea Yes all other systems are reviewed and are negative PMFSH Past Medical History Attestation statement: The following information was validated with the patient. Social History Social History Alcohol intake: never Smoked in Last 30 Days: Yes Use of substances other than those prescribed or required for medical reasons: No Advance Directives: No Advance Directives Information Provided: No Do you have a plan to hurt others: No Plan Physical Exam 2 Exam: Exam: Appearance: Alert. Oriented X3. No acute distress. Eyes: Pupils equal, round and reactive to light. ENT: Pharynx normal. Neck: Normal inspection. Neck supple. No lymph nodes noted. No crepitus CVS: Normal heart rate and rhythm. Pulses normal. Normal S1 and S2 Respiratory: No respiratory distress. Breath sounds normal. No Wheezing. No rales Abdomen: Soft and nontender. No rigidity. No distention. good BS x4 Skin: Skin warm and dry. Normal skin color. Normal skin turgor. Extremities: No lower extremity edema. Neurovascular intact to all extremities. No Lacerations. No Rash Neuro: Oriented X 3. No motor deficit. No sensory deficit. Moving all extermities. No slurred speech Vital Signs: Vital Signs: Last Vital Signs Temp 98 F 05/25/25 15:07 Pulse 88 05/25/25 16:46 Resp 18 05/25/25 16:46 BP 119/77 05/25/25 16:46 Pulse Ox 92 05/25/25 16:46 O2 Del Method Room Air 05/25/25 16:46 BMI result Body Mass Index 89.1 Medications Administered Discontinued Medications Generic Name Dose Route Start Last Admin Trade Name Freq PRN Reason Stop Dose Admin Diphenhydramine HCl 50 mg 05/25/25 17:40 05/25/25 17:55 Diphenhydramine Hcl 50 Mg/Ml Vial IVPUSH 05/25/25 17:41 50 mg ONCE ONE Administration Ketorolac Tromethamine 15 mg 05/25/25 17:40 05/25/25 17:55 Ketorolac Tromethamine 15 Mg/Ml Vial IVPUSH 05/25/25 17:41 15 mg ONCE ONE Administration Metoclopramide HCl 10 mg 05/25/25 17:39 05/25/25 17:55 Metoclopramide Hcl 10 Mg/2 Ml Vial IVPUSH 05/25/25 17:40 10 mg ONCE ONE Administration Medical Decision Making Medical Decision Making MDM Narrative: Patient's CT head was grossly negative for any acute evidence of bleeding. No shunt malfunction. Patient given a migraine cocktail with good relief of symptoms. White count is 9. Electrolytes unremarkable. test is negative no related issue. Patient's COVID flu RSV were all negative. Patient's chest x-ray by my interpretation was grossly negative. KUB by my interpretation is grossly negative. Will discharge patient home close follow-up on outpatient basis. Differential Diagnosis Differential Diagnoses: The differential diagnosis associated with the presentation includes Intracranial bleed, shunt malfunction Admission/Observation Consideration of admission/observation: Escalation of care including admission/observation considered Lab Data MDM Lab Attestation statement: I reviewed the patient's lab results. 05/25/25 15:19 05/25/25 15:19 Labs: Lab Results 05/25/25 Range/Units 15:19 WBC 9.0 (4.8-10.8) X10*3/uL RBC 5.25 (4.20-5.50) X10*6/uL Hgb 12.5 (12.0-16.0) g/dl Hct 40.2 (37.0-47.0) % MCV 76.6 L (80.0-98.0) fL MCH 23.8 L (27.0-33.0) pg MCHC 31.1 (31.0-35.0) g/dl RDW 17.0 H (11.0-16.0) % Plt Count 449 H (160-400) X10*3/uL MPV 9.4 (9.4-12.3) fL Immature Gran % (Auto) 0.4 (0.0-0.4) % Neut % (Auto) 63.6 (45-73) % Lymph % (Auto) 24.7 (20-40) % [place] % (Auto) 6.6 (2-11) % Eos % (Auto) 4.1 H (0-4) % Baso % (Auto) 0.6 (0-2) % Lymph # (Auto) 2.2 (1.2-4.9) X10*3/uL [place] # (Auto) 0.6 (0.1-1.2) X10*3/uL Eos # (Auto) 0.4 (0.0-0.4) X10*3/uL Baso # (Auto) 0.1 (0.0-0.2) X10*3/uL Abs Immat Gran (auto) 0.04 H (0.00-0.03) X10*3/uL Absolute Neuts (auto) 5.7 (2.0-8.3) x10*3/uL Absolute Nucleated RBC 0.000 (0.0-0.012) X10*3/uL Nucleated RBC % (auto) 0.0 (0.0-0.2) /100WBC Sodium 141 (135-145) mmol/L Potassium 3.8 (3.3-5.1) mmol/L Chloride 109 H (96-108) mmol/L Carbon Dioxide 23 (22-29) mmol/L Anion Gap 13 (12-20) BUN 9 (9-16) mg/dL Creatinine 0.69 (0.5-1.4) mg/dL Estim Creat Clear Calc 197.7 Estimated GFR > 60 Random Glucose 109 (60-115) mg/dL Calcium 9.0 (8.4-10.2) mg/dL Total Bilirubin 0.2 (0.0-1.0) mg/dL AST 26 (5-31) U/L ALT 27 (0-31) U/L Alkaline Phosphatase 126 H (39-117) U/L Total Protein 7.3 (6.5-8.0) g/dL Albumin 4.3 (3.5-5.0) g/dL Beta HCG, Quant < 2 mIU/mL COVID-19 (SHRUTHI) Negative (Negative) COVID-19 Clin Com See Note Influenza Type A (FREDA) Negative (Negative) Influenza Type B (FREDA) Negative (Negative) Influenza A & B Note See Note Independent Interpretation I performed an independent interpretation of an: Plain X-Ray (X-ray of the chest x-ray of the KUB was negative) and CT Scan (CT head showed no acute bleed) Radiology Impression Discussion of test interpretation with radiology: I have reviewed the radiologist's reading. 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 shunt Social Determinants Patient?s care significantly limited by Social Determinants of Health including: Problems related to primary support group Discharge Plan Discharge Clinical Impression: Migraine Patient Disposition: Home, Self-Care Instructions: Migraine Headache (ED) Prescriptions: No Action ondansetron 4 mg tablet,disintegrating 4 mg PO Q6H PRN (Reason: nausea and vomiting) Qty: 10 0RF omeprazole 40 mg capsule,delayed release(DR/EC) 40 mg PO DAILY Qty: 30 0RF azithromycin 250 mg tablet 250 mg PO DAILY 4 Days Qty: 4 0RF Rx Instructions: start on day 2 of therapy prednisone 20 mg tablet 40 mg PO DAILY 4 Days Qty: 8 0RF azithromycin 250 mg tablet 250 mg PO DAILY 4 Days Qty: 4 0RF Rx Instructions: start on day 2 of therapy prednisone 20 mg tablet 20 mg PO DAILY Qty: 12 0RF Rx Instructions: Take 3 tablets by mouth daily for 2 days then take 2 tablets by mouth daily for 3 days. budesonide-formoterol 160-4.5 mcg/actuation HFA aerosol inhaler 2 puff inhalation BID Qty: 10.2 0RF Referrals: Jann Agrawal MD [Primary Care Provider, Internal Medicine] - 05/27/25 Print Language: Gabonese
--- OUTSIDE RECORDS SUMMARY | 2025-05-25 18:42 | XMS_ITS | Clinical Summary ---
Author Organization [facility] [address] [place] [address] [place] [phone] Phone Care Team Providers Care Field Seismologist Name Role Phone Jann Agrawal MD Primary Care Provider [phone] Allergies No known active allergies Medications ibuprofen [...] A DAY NEEDED FOR MUSCLE SPASMS Active ondansetron (ZOFRAN) 4 mg tablet TK 1 T PO TID PRF NAUSEA Active QUEtiapine (SEROquel) 25 mg tablet Take 1 Tab by mouth 2 times daily for 30 days. Active topiramate (TOPAMAX) 25 mg tablet TAKE 1 TABLET BY MOUTH EVERY DAY FOR 7 DAYS, THEN INCREASE AND TAKE 1 TABLET TWO TIMES A DAY EVERY DAY. 12/26/19 24 Active albuterol 2.5 mg /3 mL (0.083 %) nebulizer solutionIndicati ons:Mild intermittent asthma with acute exacerbation Take 3 mL (2.5 mg total) by nebulization every 6 (six) hours if needed for wheezing or shortness of breath. 1080 mL 1 09/23/19 25 Active sodium chloride (OCEAN) 0.65 % nasal spray Administer 1 spray into each nostril if needed for congestion. 15 mL 3 09/25/19 25 026 Active budesonide-formo teroL (SYMBICORT) 160-4.5 mcg/actuation inhaler Inhale 2 puffs by mouth 2 (two) times a day. Rinse mouth with water after use to reduce aftertaste and incidence of candidiasis. Do not swallow. 3 each 3 10/07/19 25 026 Active inhalational spacing device (Aerochamber MV) inhaler Use as instructed 1 each 10/07/19 25 026 Active meclizine (ANTIVERT) 12.5 mg tablet Take 1 tablet (12.5 mg total) by mouth 3 (three) times a day if needed for dizziness. 90 tablet 02/17/20 25 Active SUMAtriptan (IMITREX) 25 mg tablet Take 1 tablet (25 mg total) by mouth 1 (one) time if needed for migraine. May repeat dose once in 2 hours if no relief. Do not exceed 2 doses in 24 hours. 28 tablet 1 02/17/20 25 Active fluticasone propionate (FLONASE) 50 mcg/actuation nasal spray Administer 2 sprays into each nostril 1 (one) time each day. Shake gently. Before first use, prime pump. After use, clean tip and replace cap. 16 g 2 02/19/20 25 026 Active sodium chloride (OCEAN) 0.65 % nasal spray Administer 1 spray into each nostril if needed for congestion. 15 mL 11 02/19/20 25 026 Active hydrOXYzine HCL (ATARAX) 25 mg tabletIndication s:Anxiety Take 1 tablet (25 mg total) by mouth every 8 (eight) hours if needed for anxiety. 90 each 1 04/23/20 25 025 Active naproxen (NAPROSYN) 500 mg tablet Take 1 tablet (500 mg total) by mouth 2 (two) times a day if needed for mild pain or moderate pain. 60 tablet 04/23/20 25 Active albuterol HFA (Proventil HFA) 90 mcg/actuation inhaler Inhale 2 puffs by mouth every 4 (four) hours if needed for wheezing or shortness of breath. 6.7 g 2 04/23/20 25 026 Active loratadine (CLARITIN) 10 mg tablet Take 1 tablet (10 mg total) by mouth 1 (one) time each day if needed for allergies. 90 each 3 04/23/20 25 026 Active doxycycline (VIBRAMYCIN) 100 mg capsule Take 1 capsule (100 mg total) by mouth 2 (two) times a day for 14 days. Take with at least 8 ounces (large glass) of water, do not lie down for 30 minutes after. Administer 2 hours before or after multivitamins, antacids, or other products containing polyvalent cations (i.e., calcium, iron, magnesium, selenium, zinc). 28 each 04/23/20 25 025 methylPREDNISolo ne (MEDROL DOSPAK) 4 mg tablet Take as directed on package. 21 tablet 04/23/20 025 benzonatate (TESSALON) 100 mg capsule Take 1 capsule (100 mg total) by mouth 3 (three) times a day if needed for cough. Do not crush or chew. 42 capsule 04/23/20 25 025 Active Problems Problem Noted Date Diagnosed Date [...] Encounters Date Type Department Care Team Description 04/23/2025 10:30 AM EDT Office Visit Adult Medicine [address] [phone] Jann Agrawal MD Mild intermittent asthma with acute exacerbation (Primary Dx); Anxiety; Community acquired pneumonia, unspecified laterality; Leukocytosis, unspecified type 04/22/2025 Telephone Adult Medicine [address] [phone] Stacie Gutierrez MA from Last 3 Months Surgical History Surgery [...] Sign Reading Time Taken Comments Blood Pressure 109/69 04/23/2025 10:23 AM EDT Pulse 104 04/23/2025 10:23 AM EDT Temperature 36.3 C (97.4 F) 04/23/2025 10:23 AM EDT Respiratory Rate 12 04/23/2025 10:23 AM EDT Oxygen Saturation 100% 01/11/2025 2:37 PM EDT Inhaled Oxygen Concentration - - Weight 91.6 kg (202 lb) 04/23/2025 10:23 AM EDT Height 152.4 cm (5') 04/23/2025 10:23 AM EDT Body Mass Index 39.45 04/23/2025 10:23 AM EDT Plan of Treatment Upcoming Encounters Date Type Department Care Team (Late st Contact Info) Description 06/04/2025 9:30 AM EDT Office Visit Adult Medicine [address] [phone] Jann Agrawal MD [address], [place] 08/18/2025 10:00 AM EST Office Visit Obstetrics and Gynecology - [address] [phone] [place], [facility] [address] [place] [address] 12/09/2025 3:00 PM EDT Office Visit Adult Medicine [address] [phone] Jann Agrawal MD [address], [place] Health Maintenance Due Date Last Done Comments COVID-19 Vaccine (#1) 1994 DTaP,Tdap,and Td Vaccines (1 - Tdap) 2008 Hepatitis B Vaccines (1 of 3 - 19+ 3-dose series) 2008 Pneumococcal Vaccine: Pediatrics (0 to 5 Years) and At-Risk Patients (6 to 49 Years) (1 of 2 - PCV) 2008 HPV Vaccines (1 - Risk 3-dos e SCDM series) 2016 HIV Screening 09/10/2023 Medicare Annual Wellness Visit 09/10/2023 Social Influencers of Health Screening 09/10/2023 Depression Screening 08/12/2024 Influenza Vaccine (#1) 2025 4, 11/09/2023 Cervical Cancer Screening: HPV 11/14/2028 11/15/2023 Cholesterol Screening (Lipid Panel) 08/27/2029 08/27/2024 RSV Immunization Adult Patients (1 - 1-dose 75+ series) 2064 Hepatitis C Screening Completed 09/02/2018 HIB Vaccines [...] XRAY REPORT Routine 04/15/2025 11:21 AM EDT LIPID PANEL WITH REFLEX TO DIRECT LDL [...] Anatomical Region Laterality Modality Radiographic Gabrielle ging Historical Provider MD DONALD XR PROCEDURES Final R esult * Lipid panel with reflex to direct LDL (08/27/2024 10:48 AM EST) [facility] Cholesterol 166 0 - 200 mg/dL LAB CHEMISTRY METHOD 08/27/2024 6:42 PM EST [facility] Triglycerides 130 0 - 150 mg/dL LAB CHEMISTRY METHOD 08/27/2024 6:42 PM EST [facility] HDL 64 >=40 mg/dL LAB CHEMISTRY METHOD 08/27/2024 6:42 PM EST [facility] LDL Calculated 76 0 - 100 mg/dL LAB CHEMISTRY METHOD 08/27/2024 6:42 PM [facility] VLDL Cholesterol Yordy 26 mg/dL LAB CHEMISTRY METHOD 08/27/2024 6:42 PM [facility] Non HDL Chol. (LDL+VLDL) 102 <145 mg/dL LAB CHEMISTRY METHOD 08/27/2024 6:42 PM EST [facility] Chol/HDL Ratio 2.6 0.0 - 4.4 LAB CHEMISTRY METHOD 08/27/2024 6:42 PM [facility] Blood Venous blood specimen / Unknown Venipuncture / Unknown 08/27/2024 10:48 AM EST 08/27/2024 10:48 AM EST Jann Agrawal MD LAB BLOOD ORDERABLES Final Result [facility] [address] [place] [address], [place] [phone] * Cervical Cancer Screening: HPV (11/15/2023) [facility] Cervical Cancer Screening: HPV negative interpretation abstracted Historical Provider HEALTH MAINTENANCE Final Result * Hepatitis C Screening (09/02/2018) [facility] Hepatitis C Screening abstracted us Historical Provider HEALTH MAINTENANCE Final Result from Last 3 Months or Most Recently Relevant to Health Maintenance Insurance BL[place] CROSS - [place] MEDIC[place] AD[place]ANTAGE [place] - [place] Care Teams Field Seismologist Relationship Specialty Start Date End Date Jann Agrawal MD [address] [place] [address] PCP - General 11/12/23
--- OUTSIDE RECORDS SUMMARY | 2025-05-25 18:42 | XMS_ITS | Encounter Summary ---
Author Organization [facility] Address [address] [facility] [address] [place] [phone] Phone Care Team Providers Care Label Stamper Name Role Phone Jann Agrawal MD Primary Care Provider [phone] Encounter Details Date Type Department Care Team (Late st Contact Info) Description 01/07/2025 Procedure Pass [facility], Ct Scan - [address] [address] Social History Tobacco Use Types Packs/Day Years [...] 9:02 AM EDT Meme Carias RN * [place] Suicide Severity Rating Scale (Screener/Recent Self-Report) Question [...] on filedocumented in this encounter Care Teams Label Stamper Relationship Specialty Start Date End Date Jann Agrawal MD [address] [place] [address] PCP - General 01/07/25 documented as of this encounter Additional Source Comments The information contained in this document represents components of the legal health record. It is not the complete legal health record.[facility]
--- OUTSIDE RECORDS SUMMARY | 2025-05-25 18:42 | XMS_ITS | Clinical Summary ---
Author Organization [facility] Address [address] [facility] [address] [place] [phone] Phone Care Team Providers Care Education Intern Name Role Phone Jann Agrawal MD Primary Care Provider [phone] Allergies No known active allergies Social History [...] 2010 INFLUENZA VACCINE (#1) 2025 COVID-19 VACCINE (2024-2 6 season) 2025 SCREENING FOR DIABETES 01/08/2028 01/07/2025 [...] topic Medical Devices Not on [place] [address] [place] [address] MEDICARE PPO [place] [address] [place] [address] MEDICARE PART A & B [facility] MEDICARE PPO BLUE [address] [place], [place] [address]HEALTH MEDICARE PART A & B [place] MEDIC[place] P[place] BLUE REPLACEMENT Member Subscriber Plan / Payer ( fective 2013-Present) Name:Tanisha Garg Relation to Subscriber:Self Name:Tanisha Garg Payer ID:[id number] (NAIC) Type:Medicare Address: [facility] [id number] [address] & B [place] MED[place] PPO BLUE REPLACEMENT [facility] MEDICARE PART A & [place] [address] [place] [address] MEDICARE PPO BLUE REPLACEMENT [facility] MEDICARE PART A & [place] [address] [place] [address] MEDICARE PPO BLUE REPLACEMENT [facility] MEDICARE PART A & B Care Teams Education Intern Relationship Specialty Start Date End Date Jann Agrawal MD [address] [place] [address] PCP - General 01/07/25 Additional Source Comments The information contained in this document represents components of the legal health record. It is not the complete legal health record.[facility]
[2025-05-25 19:08] VITALS: BP 119/77; PULSE 88; RESP 18; TEMP -17.7; TEMP 0; O2SAT 92
== END 2025-05-25 19:11 | disposition home or self-care (01) ==
PROVIDERS: Registered Nurse Emergency; Emergency Provider Emergency Medicine Emergency Medical Services; PCP Internal Medicine
DX: G43.909 Migraine, unspecified, not intractable, without status migrainosus (principal); Z98.2 Presence of cerebrospinal fluid drainage device; Z79.899 Other long term (current) drug therapy
CPT/HCPCS: 70450; 71045; 72040; 74018; 80053; 84702; 85025; 87502; 87635; 96374; 96375; 99284; J1200; J1885; J2765

== ENCOUNTER → 2025-05-25 15:10 | Outpatient (BNV) | payer MEDICARE, MEDICAID, SELFPAY | PROVIDERS: PCP Internal Medicine; Visit Provider Radiology Diagnostic Radiology | DX: R51.9 Headache, unspecified (principal); Z98.2 Presence of cerebrospinal fluid drainage device | CPT/HCPCS: 70450; 71045; 72040; 74018 ==

== ENCOUNTER 2025-07-29 20:19 | Emergency (ER) | payer MEDICARE, MEDICAID, SELFPAY ==
[2025-07-29 20:48] VITALS: BP 138/73; PULSE 104; RESP 20; TEMP 36.4; O2SAT 99; BMI 42.4
[2025-07-29 21:28] LABS: MANUAL DIFF FLAG NO
[2025-07-29 21:31] LABS: Hematocrit 37.8 % (37.0-47.0); Hemoglobin 12.2 g/dl (12.0-16.0); Imm Gran Abs Auto 0.03 X10*3/uL (0.00-0.03); Imm Gran Pct Auto 0.3 % (0.0-0.4); Lymphocytes Absolute Auto 2.6 X10*3/uL (1.2-4.9); Mean Corpuscular HGB Conc 32.3 g/dl (31.0-35.0); Mean Corpuscular Hemoglobin 24.4 pg (27.0-33.0); Mean Corpuscular Volume 75.6 fL (80.0-98.0); NRBC Abs Auto 0.000 X10*3/uL (0.0-0.012); NRBC Pct Auto 0.0 /100WBC (0.0-0.2); Platelet Count 393 X10*3/uL (160-400); Red Blood Count 5.00 X10*6/uL (4.20-5.50); White Blood Count 11.3 X10*3/uL (4.8-10.8)
[2025-07-29 21:45] LABS: Alanine Aminotransferase 37 U/L (0-31); Albumin Level 4.4 g/dL (3.5-5.0); Alkaline Phosphatase 104 U/L (39-117); Anion Gap 11 (12-20); Aspartate Amino Transferase 33 U/L (5-31); Blood Urea Nitrogen 11 mg/dL (9-16); Calcium 9.3 mg/dL (8.4-10.2); Carbon Dioxide 23 mmol/L (22-29); Chloride 108 mmol/L (96-108); Creatinine Clr Calc Pharmacy 99.5; Estimated Glomerular Filt Rate > 60; Potassium 3.7 mmol/L (3.3-5.1); Sodium 138 mmol/L (135-145); Total Protein 7.4 g/dL (6.5-8.0)
[2025-07-29 22:07] LABS: Resp Syncy Virus RNA Qual PCR NEGATIVE (Negative); SARS COV2 PCR INHOUSE NEGATIVE (Negative)
--- OUTSIDE RECORDS SUMMARY | 2025-07-29 22:46 | XMS_ITS | Encounter Summary ---
Author Organization [facility] Address [address] [facility] [address] [place] [address] Phone Care Team Providers Care Mat Packer Name Role Phone Jann Agrawal MD Primary Care Provider [phone] Encounter Details Date Type Department Care Team (Late st Contact Info) Description 01/07/2025 Procedure Pass [facility], Ct Scan - [address] [address] Social History Tobacco Use Types Packs/Day Years [...] on file documented as of this encounter Plan of Treatment Not on file documented as of this encounter Visit Diagnoses Not on filedocumented in this encounter Care Teams Mat Packer Relationship Specialty Start Date End Date Jann Agrawal MD [address] [place] [address] PCP - General 01/07/25 documented as of this encounter Additional Source Comments The information contained in this document represents components of the legal health record. It is not the complete legal health record.[facility]
--- OUTSIDE RECORDS SUMMARY | 2025-07-29 22:46 | XMS_ITS | Clinical Summary ---
Author Organization [facility] [address] [place] [address] [place] [phone] Phone Care Team Providers Care Field Artillery Fire Control Man Name Role Phone Jann Agrawal MD Primary Care Provider [phone] Allergies No known active allergies Medications ibuprofen [...] TIMES A DAY EVERY DAY. 4 Active albuterol 2.5 mg /3 mL (0.083 %) nebulizer solutionIndicati ons:Mild intermittent asthma with acute exacerbation Take 3 mL (2.5 mg total) by nebulization every 6 (six) hours if needed for wheezing or shortness of breath. 1080 mL 1 5 Active sodium chloride (OCEAN) 0.65 [...] inhaler Use as instructed 1 each 5 Active meclizine (ANTIVERT) 12.5 mg [...] in 24 hours. 28 tablet 1 5 Active fluticasone propionate (FLONASE) 50 mcg/actuation nasal spray Administer 2 sprays into each nostril 1 (one) time each day. Shake gently. Before first use, prime pump. After use, clean tip and replace cap. 16 g 2 5 Active sodium chloride (OCEAN) 0.65 % nasal spray Administer 1 spray into each nostril if needed for congestion. 15 mL 11 5 026 Active hydrOXYzine HCL (ATARAX) 25 mg tabletIndication s:Anxiety Take 1 tablet (25 mg total) by mouth every 8 (eight) hours if needed for anxiety. 90 each 1 5 Active albuterol HFA (Proventil HFA) 90 mcg/actuation inhaler Inhale 2 puffs by mouth every 4 (four) hours if needed for wheezing or shortness of breath. 6.7 g 2 5 026 Active loratadine (CLARITIN) 10 mg tablet Take 1 tablet (10 mg total) by mouth 1 (one) time each day if needed for allergies. 90 each 3 5 026 Active naproxen (NAPROSYN) 500 mg tablet TAKE 1 TABLET (500 MG TOTAL) BY MOUTH TWICE A DAY NEEDED FOR MILD OR MODERATE PAIN 60 tablet 5 Active Active Problems Problem Noted Date Diagnosed [...] Encounters Date Type Department Care Team Description 05/31/2025 Telephone Pulmonology - [address] [place] [address] Saida Du MD from Last 3 Months Surgical History Surgery Date Site/Laterality Comments SECTION PROCEDURE: DE DELIVERY ONLY HEMORRHOID SURGERY PROCEDURE: DE INCISION THROMBOSED HEMORRHOID EXTERNAL OTHER SURGICAL HISTORY PROCEDURE: DE CRANIOPLASTY SKULL DEFECT REPARATIVE BRAIN SURG; COMMENT: [...] Used Date Smoking Tobacco: Every Day Cigarettes 0.3 Last attempted to quit: 08/12/2019 Passive Smoke [...] Care Team (Late st Contact Info) Description 07/30/2025 10:30 AM EST Office Visit [facility] [address] [place] [phone] Pacheco Gunter MD [address] [place] [address] [address] [place] [id number] 08/18/2025 10:00 AM EST Office Visit Obstetrics and Gynecology [address] [place] [address] Bart Us, CNM [address] [place] [address] 12/09/2025 3:00 PM EDT Office Visit Adult Medicine [facility] [address] [place], [place] [phone] Jann Agrawal MD [address] [place], [place] Health Maintenance Due Date Last Done [...] Depression Screening 08/12/2024 Influenza Vaccine (#1) 2025 , 11/09/2023 Cervical Cancer Screening: HPV 11/14/2028 11/15/2023 [...] Procedure Name Priority Date/Time Associated Diagnosis Comments LIPID PANEL WITH REFLEX TO DIRECT LDL Routine 08/27/2024 10:48 AM EST Class 2 obesity due to excess calories without serious comorbidity with body mass index (BMI) of 39.0 to 39.9 in adult HPV Routine 11/15/2023 HEPATITIS C SCREENING Routine 09/02/2018 from Last 3 Months or Most Recently Relevant to Health Maintenance Results * Lipid panel with reflex to direct LDL (08/27/2024 10:48 AM EST) Cholesterol 166 0 - 200 mg/dL LAB CHEMISTRY METHOD 08/27/2024 6:42 PM [facility] Triglycerides 130 0 - 150 mg/dL LAB CHEMISTRY METHOD 08/27/2024 6:42 PM [facility] HDL 64 >=40 mg/dL LAB CHEMISTRY METHOD 08/27/2024 6:42 PM [facility] LDL Calculated 76 0 - 100 mg/dL LAB CHEMISTRY METHOD 08/27/2024 6:42 PM [facility] VLDL Cholesterol Yordy 26 mg/dL LAB CHEMISTRY METHOD 08/27/2024 6:42 PM [facility] Non HDL Chol. (LDL+VLDL) 102 <145 mg/dL LAB CHEMISTRY METHOD 08/27/2024 6:42 PM [facility] Chol/HDL Ratio 2.6 0.0 - 4.4 LAB CHEMISTRY METHOD 08/27/2024 6:42 PM [facility] Blood Venous blood specimen / Unknown Venipuncture / Unknown 08/27/2024 10:48 AM EST 08/27/2024 10:48 AM EST us Jann Agrawal MD LAB BLOOD ORDERABLES Final Result [facility] [address] [place] [address], * Cervical Cancer Screening: HPV (11/15/2023) Cervical Cancer Screening: HPV negative interpretation abstracted Historical Provider HEALTH MAINTENANCE Final Result * Hepatitis C Screening (09/02/2018) Hepatitis C Screening abstracted Historical Provider HEALTH MAINTENANCE Final Result from Last 3 Months or Most Recently Relevant to Health Maintenance Insurance MEDICAID - [place] MEDICARE Care Teams Field Artillery Fire Control Man Relationship Specialty Start Date End Date Jann Agrawal MD [address] [place] [address] PCP - General 11/12/23
--- OUTSIDE RECORDS SUMMARY | 2025-07-29 22:46 | XMS_ITS | Clinical Summary ---
Author Organization [address] Address [address] [place] [phone] Phone Care Team Providers Care Clinical Cytogeneticist Name Role Phone Jann Agrawal MD Primary [...] once) 2009 Cervical cancer screening 09/18/2021 09/18/2018 Influenza vaccine 03/12/2025 07/07/2024, 11/09/2023 Covid-19 vaccine series (2024- season) 2025 RSV Immunization (1 - 1-dose 75+ series) 2064 Meningococcal B Vaccine Aged Out No l onger eligible based on patient's age to complete this topic Meningococcal Vaccine Aged Out No susana kesha eligible based on patient's age to complete this topic Pneumococcal Vaccine (2 - 49 years) Aged Out No longer eligible b ased on patient's age to complete this topic Insurance [id number] MEDICAID [id number] MEDICAID [facility] [id number] MEDICAID [facility] Care Teams Clinical Cytogeneticist Relationship Specialty Start Date End Date Jann Agrawal MD [address] [place] [address] PCP - General Internal Medicine 12/31/23
--- OUTSIDE RECORDS SUMMARY | 2025-07-29 22:46 | XMS_ITS | Clinical Summary ---
Author Organization [facility] Address [address] [facility] [address] [place] [phone] Phone Care Team Providers Care Cost Estimator Name Role Phone Jann Agrawal MD Primary Care Provider [phone] Allergies No known active allergies Social History [...] topic Medical Devices Not on file Insurance [address] [address] MEDICARE PPO BLUE [place] [address] MEDICARE PART A & B [place] MEDICARE PPO BLUE REPLACEMENT [address] [place], [place] [address]HEALTH MEDICARE PART A & B [place] MEDICARE P[place] BLUE REPLACEMENT Member Subscriber Plan / Payer ( fective 2013-Present) Name:Tanisha Garg Relation to Subscriber:Self Name:Tanisha Garg Payer ID:[id number] (NAIC) Type:Medicare Address: [facility] [id number] [address] & B [place] MED[place]ARE PPO BLUE REPLACEMENT [facility] MEDICARE PART A & [place] [address] [address] MEDICARE PPO BLUE REPLACEMENT [facility] MEDICARE PART A & [place] [address] [address] MEDICARE PPO BLUE REPLACEMENT [facility] MEDICARE PART A & B Care Teams Cost Estimator Relationship Specialty Start Date End Date aJnn Agrawal MD [address] [place] [address] PCP - General 01/07/25 Additional Source Comments The information contained in this document represents components of the legal health record. It is not the complete legal health record.[facility]
== END 2025-07-29 23:32 | disposition left against medical advice (07) ==
PROVIDERS: Emergency Provider Emergency Medicine; PCP Internal Medicine
DX: R51.9 Headache, unspecified (principal); Z03.818 Encounter for observation for suspected exposure to other biological agents ruled out
CPT/HCPCS: 80053; 85025; 87637; 99281

== ENCOUNTER 2025-08-11 07:43 | Emergency (ER) | payer MEDICARE, MEDICAID, SELFPAY ==
--- NOTE | ~2025-08-11 | XR_ITS ---
EXAMINATION: XR ABDOMEN KUB CLINICAL INDICATION: L sided abd pain COMPARISON: Previous x-ray May 2025 TECHNIQUE: AP view of the abdomen. FINDINGS: ASSOCIATE PROFESSOR OF PSYCHOLOGY shunt catheter with tip projecting over the left mid abdomen. This is unchanged from previous exam. No dilated loops of bowel. No free air. No large stool burden. No suspicious calcifications. Bony structures are unremarkable. XR/XR KUB IMPRESSION: Similar ASSOCIATE PROFESSOR OF PSYCHOLOGY shunt catheter with tip projecting over the left mid abdomen. Otherwise unremarkable exam. Electronically signed by: Michelle Gilman MD 08/11/2025 09:07 AM [facility]
--- NOTE | ~2025-08-11 | CT_ITS ---
EXAMINATION: CT HEAD WITHOUT CONTRAST CLINICAL INFORMATION: 34-year-old female, right-sided headache, history of LEAD REFINERY SUPERVISOR shunt. COMPARISON: 05/25/2025, 03/30/2025. TECHNIQUE: Contiguous axial imaging was performed from the skull base to vertex without intravenous administration of contrast. This CT examination was performed using dose optimization techniques as appropriate, variously including the following: *Automated exposure control *Adjustment of mA and/or kV according to patient size (this includes techniques or standardized protocols for targeted exams where dose is matched to indication/reason for exam; i.e. extremities or head) *Use of iterative reconstruction technique FINDINGS: There is a right transfrontal LEAD REFINERY SUPERVISOR shunt in place, with tip terminating at the right foramen of Monro. The right lateral ventricle is somewhat slitlike in appearance, which could indicate over shunting. There is no hydrocephalus. Sulci and cisterns are normal in size and configuration for patient age. There is no midline shift or mass effect. No intracranial hemorrhage or extra-axial fluid collection. There are no white matter abnormal regions of attenuation. No CT evidence of acute territorial infarct. Posterior fossa structures appear normal. There is a partial empty sella present. The cerebellar tonsils are appropriately located. Bony structures demonstrate a right frontal maximus hole. Mild stable scattered paranasal sinus disease. The mastoid air cells and tympanic cavities are normally aerated. Globes and orbital contents appear normal. No extracranial soft tissue abnormalities. LEAD REFINERY SUPERVISOR shunt noted in the right frontoparietal scalp. CT/CT head/brain wo IV con IMPRESSION: 1. No acute intracranial abnormality. No significant interval change from prior exams. 2.] Transfer from the old ventriculostomy catheter, tip located at the right foramen of Monro, unchanged in location. Slit like appearance of the right lateral ventricle again noted, possibly indicating over shunting. This is, however, unchanged from prior exams. Electronically signed by: John Donovan MD 08/11/2025 09:18 AM [facility]
[2025-08-11 07:53] VITALS: BP 116/69; PULSE 92; RESP 18; TEMP 36.9; O2SAT 98; BMI 40.9
[2025-08-11 08:12] LABS: MANUAL DIFF FLAG NO
[2025-08-11 08:15] LABS: Hematocrit 39.2 % (37.0-47.0); Hemoglobin 12.4 g/dl (12.0-16.0); Imm Gran Abs Auto 0.02 X10*3/uL (0.00-0.03); Imm Gran Pct Auto 0.2 % (0.0-0.4); Lymphocytes Absolute Auto 2.2 X10*3/uL (1.2-4.9); Mean Corpuscular HGB Conc 31.6 g/dl (31.0-35.0); Mean Corpuscular Hemoglobin 24.0 pg (27.0-33.0); Mean Corpuscular Volume 75.8 fL (80.0-98.0); NRBC Abs Auto 0.000 X10*3/uL (0.0-0.012); NRBC Pct Auto 0.0 /100WBC (0.0-0.2); Platelet Count 370 X10*3/uL (160-400); Red Blood Count 5.17 X10*6/uL (4.20-5.50); White Blood Count 8.6 X10*3/uL (4.8-10.8)
[2025-08-11 08:35] LABS: Alanine Aminotransferase 39 U/L (0-31); Albumin Level 4.5 g/dL (3.5-5.0); Alkaline Phosphatase 115 U/L (39-117); Anion Gap 11 (12-20); Aspartate Amino Transferase 30 U/L (5-31); Blood Urea Nitrogen 16 mg/dL (9-16); Calcium 9.0 mg/dL (8.4-10.2); Carbon Dioxide 22 mmol/L (22-29); Chloride 111 mmol/L (96-108); Creatinine Clr Calc Pharmacy 92.0; Estimated Glomerular Filt Rate > 60; Lipase 29 U/L (8-78); Potassium 3.9 mmol/L (3.3-5.1); Sodium 140 mmol/L (135-145); Total Protein 7.6 g/dL (6.5-8.0)
--- NOTE | 2025-08-11 08:35 | ED.GENADULT ---
HPI - General Adult General Chief complaint: Abdominal Pain Stated complaint: Pressure and pain in stomach? Time Seen by Provider: 08/11/25 08:10 Source: patient Mode of arrival: ambulatory Limitations: no limitations History of Present Illness ED Provider: AMANDA ZAVALETA PA-C HPI narrative: 34 year old female with pmhx significant for migraines, SLASHER HAND shunt presents to the ED today for evaluation of headache and abdominal pain x this morning. Reports headache to the right side of her head, no radiation. Describes this as a pressure sensation. She also endorses left sided abdominal pain which began around the same time. No radiation. Last BM yesterday, prior to this was passing BMs daily. Just ended her menses. Patient reports waking up with these symptoms, they did not wake her from her sleep. Denies fever, chills, neck pain, vision changes, dizziness, N/V/D, constipation, urinary sx, numbness/weakness/tingling of the extremities. Patient states that she had a SLASHER HAND shunt placed back in [place] in 2020 for increased intracranial pressure. Reports the shunt broke a few years later while she was still in [place] and had this replaced. She now follows with neurosurgery at [facility] (Dr. Dangelo). She had a brain MRI back in November which she reports was normal. Related Data Previous Rx's ?Medication ?Instructions ?Recorded omeprazole 40 mg capsule,delayed 40 mg PO DAILY #30 caps 03/01/25 release ondansetron 4 mg disintegrating 4 mg PO Q6H PRN nausea and 03/01/25 tablet vomiting #10 tabs azithromycin 250 mg tablet 250 mg PO DAILY 4 days #4 tabs 04/15/25 budesonide-formoterol HFA 160 2 puff inhalation BID #10.2 grams 04/15/25 mcg-4.5 mcg/actuation aerosol inhaler prednisone 20 mg tablet 20 mg PO DAILY #12 tabs 04/15/25 azithromycin 250 mg tablet 250 mg PO DAILY 4 days #4 tabs 04/21/25 prednisone 20 mg tablet 40 mg (2 x 20 mg) PO DAILY 4 days 04/21/25 #8 tabs wnkhnax-jxgekyguexzgz-kvtimirs 250 1 tab PO Q6H PRN headache #7 tabs 08/11/25 mg-250 mg-65 mg tablet (Excedrin Migraine) Allergies Allergy/AdvReac Type Severity Reaction Status Date / Time No Known Allergies (No Known Allergy Verified 08/11/25 07:53 Allergies*) Review of Systems Review of Systems: Yes all other systems are reviewed and are negative [facility] Past Medical History Attestation statement: The following information was validated with the patient. Source: old records reviewed and nursing notes reviewed Social History Social History Alcohol intake: never Smoked in Last 30 Days: Yes Use of substances other than those prescribed or required for medical reasons: No Advance Directives: No Advance Directives Information Provided: Yes Patient : No Physical Exam ED Vital Signs: Vital Signs - 24 hr 08/11/25 07:53 08/11/25 08:46 08/11/25 10:16 Temperature 98.4 F 98.0 F Pulse Rate 92 81 84 Respiratory Rate 18 18 18 Blood Pressure 116/69 121/73 123/78 Pulse Oximetry 98 96 98 Oxygen Delivery Method Room Air Room Air Room Air BMI result Body Mass Index 40.9 vital signs stable General: Well appearing, in no acute distress. Skin: Warm, dry, intact. No rashes or lesions. Head: Normocephalic, atraumatic. EENT: Hearing is intact b/l. Conjunctiva clear. Sclera is anicteric. PERRLA. EOM intact. Moist mucous membranes.? Neck: Supple without LAD. FROM. Trachea midline.? Cardiac: Chest wall symmetric. RRR Lungs: Normal respiratory effort without accessory muscle use. CTA bilaterally. No rales, rhonchi, or wheezes.? Abdomen: Soft, non-tender, non-distended. No rebound tenderness or guarding. Positive BS x4. Back: No midline spinous or paraspinal tenderness. No step off deformity. Ext: Upper and lower extremities atraumatic, without tenderness, deformity, swelling or erythema Neuro: AOx3. Normal speech. NIH 0. CN 2-12 grossly intact. Strength 5/5 intact throughout. Sensation intact to light touch. NV intact distally. Ambulating with steady gait. Psych: Appropriate mood and affect. Responds appropriately to questions. Course Course Course Narrative: CBC without leukocytosis or left shift. H&H stable. Chemistry without acute electrolyte abnormality requiring intervention. No TERESA. Liver function around baseline. Negative COVID, flu, RSV. KUB unremarkable. There is no obstructive pattern. There is a SLASHER HAND shunt catheter with tip projecting over left mid abdomen, unchanged. CT head shows unchanged ventriculostomy catheter tip at the right forearm and of Monro, with slit-like appearance of right lateral ventricle unchanged from prior exams. no cute findings. > patient treated with migraine cocktail. Reports complete resolution of symptoms. States she feels well. I have suspicion that patient's symptoms were related to her migraine. I do not feel as though further imaging is warranted at this time. Will send her home with Sergio migraine and outpatient follow up. Patient has remained stable throughout ED visit today. Discussed worrisome signs and symptoms and when to return to the ED. All questions answered at this time. Patient is agreeable with disposition and stable for discharge. Medications Administered Discontinued Medications Generic Name Dose Route Start Last Admin Trade Name Freq PRN Reason Stop Dose Admin Diphenhydramine HCl 25 mg 08/11/25 08:33 08/11/25 08:43 Diphenhydramine Hcl 50 Mg/Ml Vial IVPUSH 08/11/25 08:34 25 mg ONCE ONE Administration Ketorolac Tromethamine 15 mg 08/11/25 08:33 08/11/25 08:41 Ketorolac Tromethamine 15 Mg/Ml Vial IVPUSH 08/11/25 08:34 15 mg ONCE ONE Administration Metoclopramide HCl 10 mg 08/11/25 08:33 08/11/25 08:42 Metoclopramide Hcl 10 Mg/2 Ml Vial IVPUSH 08/11/25 08:34 10 mg ONCE ONE Administration Medical Decision Making Medical Decision Making MDM Narrative: 34 year old female with pmhx significant for migraines, SLASHER HAND shunt presents to the ED today for evaluation of headache and abdominal pain x this morning. Vital signs stable, afebrile. She is well-appearing and in no acute distress. Exam is benign and nonfocal. Differential diagnosis includes anemia, electrolyte abnormality, dehydration, viral syndrome, migraine vs tension type headache, SLASHER HAND shunt malfunction. No headache red flags. Neurologic exam without evidence of meningismus. No focal neurologic findings. Presentation not consistent with acute intracranial bleed including SAH. Presentation not consistent with acute HIDE SHAKER infection including meningitis or brain abscess. Temporal arteritis unlikely, as is acute angle closure glaucoma given history and physical findings. Presentation not consistent with other acute, emergent causes of headache at this time. Plan to treat symptomatically with pain medication. No indication for LP at this time. Plan: labs, viral swabs, migraine cocktail, CT brain, reassessment Differential Diagnosis Differential Diagnoses: The differential diagnosis associated with the presentation includes As above Admission/Observation Not indicated Lab Data [facility] Lab Attestation statement: I reviewed the patient's lab results. As above 08/11/25 08:03 08/11/25 08:03 Labs: Lab Results 08/11/25 08/11/25 Range/Units 08:01 08:03 WBC 8.6 (4.8-10.8) X10*3/uL RBC 5.17 (4.20-5.50) X10*6/uL Hgb 12.4 (12.0-16.0) g/dl Hct 39.2 (37.0-47.0) % MCV 75.8 L (80.0-98.0) fL MCH 24.0 L (27.0-33.0) pg MCHC 31.6 (31.0-35.0) g/dl RDW 15.9 (11.0-16.0) % Plt Count 370 (160-400) X10*3/uL MPV 9.6 (9.4-12.3) fL Immature Gran % (Auto) 0.2 (0.0-0.4) % Neut % (Auto) 63.0 (45-73) % Lymph % (Auto) 25.4 (20-40) % [place] % (Auto) 7.2 (2-11) % Eos % (Auto) 3.7 (0-4) % Baso % (Auto) 0.5 (0-2) % Lymph # (Auto) 2.2 (1.2-4.9) X10*3/uL [place] # (Auto) 0.6 (0.1-1.2) X10*3/uL Eos # (Auto) 0.3 (0.0-0.4) X10*3/uL Baso # (Auto) 0.0 (0.0-0.2) X10*3/uL Abs Immat Gran (auto) 0.02 (0.00-0.03) X10*3/uL Absolute Neuts (auto) 5.4 (2.0-8.3) x10*3/uL Absolute Nucleated RBC 0.000 (0.0-0.012) X10*3/uL Nucleated RBC % (auto) 0.0 (0.0-0.2) /100WBC Sodium 140 (135-145) mmol/L Potassium 3.9 (3.3-5.1) mmol/L Chloride 111 H (96-108) mmol/L Carbon Dioxide 22 (22-29) mmol/L Anion Gap 11 L (12-20) BUN 16 (9-16) mg/dL Creatinine 0.88 (0.5-1.4) mg/dL Estim Creat Clear Calc 92.0 Estimated GFR > 60 Random Glucose 98 (60-115) mg/dL Calcium 9.0 (8.4-10.2) mg/dL Total Bilirubin 0.2 (0.0-1.0) mg/dL Direct Bilirubin < 0.2 (0.0-0.5) mg/dL AST 30 (5-31) U/L ALT 39 H (0-31) U/L Alkaline Phosphatase 115 (39-117) U/L Total Protein 7.6 (6.5-8.0) g/dL Albumin 4.5 (3.5-5.0) g/dL Lipase 29 (8-78) U/L Influenza Type A (PCR) NEGATIVE (Negative) Influenza Type B (PCR) NEGATIVE (Negative) RSV RNA Qual (PCR) NEGATIVE (Negative) SARS-CoV-2 RNA (RT-PCR) NEGATIVE (Negative) Independent Interpretation I performed an independent interpretation of an: CT Scan Interpretation: CT head without intracranial bleed or mass KUB without obstruction Radiology Impression Discussion of test interpretation with radiology: I have reviewed the radiologist's reading. Radiologist Impression: Procedure(s): CT head/brain wo IV con Accession Number(s): [id number] cc: Amanda Zavaleta; Jann Agrawal MD~ Report Number: [id number]: Total DLP = 709.00 mGy-cm Reason for Exam: R sided BUSH, hx SLASHER HAND shunt EXAMINATION: CT HEAD WITHOUT CONTRAST CLINICAL INFORMATION: 34-year-old female, right-sided headache, history of SLASHER HAND shunt. COMPARISON: 05/25/2025, 03/30/2025. TECHNIQUE: Contiguous axial imaging was performed from the skull base to vertex without intravenous administration of contrast. This CT examination was performed using dose optimization techniques as appropriate, variously including the following: *Automated exposure control *Adjustment of mA and/or kV according to patient size (this includes techniques or standardized protocols for targeted exams where dose is matched to indication/reason for exam; i.e. extremities or head) *Use of iterative reconstruction technique FINDINGS: There is a right transfrontal SLASHER HAND shunt in place, with tip terminating at the right foramen of Monro. The right lateral ventricle is somewhat slitlike in appearance, which could indicate over shunting. There is no hydrocephalus. Sulci and cisterns are normal in size and configuration for patient age. There is no midline shift or mass effect. No intracranial hemorrhage or extra-axial fluid collection. There are no white matter abnormal regions of attenuation. No CT evidence of acute territorial infarct. Posterior fossa structures appear normal. There is a partial empty sella present. The cerebellar tonsils are appropriately located. Bony structures demonstrate a right frontal maximus hole. Mild stable scattered paranasal sinus disease. The mastoid air cells and tympanic cavities are normally aerated. Globes and orbital contents appear normal. No extracranial soft tissue abnormalities. SLASHER HAND shunt noted in the right frontoparietal scalp. CT/CT head/brain wo IV con IMPRESSION: 1. No acute intracranial abnormality. No significant interval change from prior exams. 2.] Transfer from the old ventriculostomy catheter, tip located at the right foramen of Monro, unchanged in location. Slit like appearance of the right lateral ventricle again noted, possibly indicating over shunting. This is, however, unchanged from prior exams. Electronically signed by: John Donovan MD 08/11/2025 09:18 AM [facility] Procedure(s): XR KUB Accession Number(s): [id number] cc: Amanda Zavaleta; Jann Agrawal MD~ Reason for Exam: L sided abd pain EXAMINATION: XR ABDOMEN KUB CLINICAL INDICATION: L sided abd pain COMPARISON: Previous x-ray May 2025 TECHNIQUE: AP view of the abdomen. FINDINGS: SLASHER HAND shunt catheter with tip projecting over the left mid abdomen. This is unchanged from previous exam. No dilated loops of bowel. No free air. No large stool burden. No suspicious calcifications. Bony structures are unremarkable. XR/XR KUB IMPRESSION: Similar SLASHER HAND shunt catheter with tip projecting over the left mid abdomen. Otherwise unremarkable exam. Electronically signed by: Michelle Gilman MD 08/11/2025 09:07 AM [facility] External Record Review External record reviewed: Inpatient record Prescription Management I considered prescription management with: Pain Medication Chronic Conditions Patient?s care impacted by: Other (ICP) Social Determinants Patient?s care significantly limited by Social Determinants of Health including: Other Social Determinant of Health Critical Care Time Critical Care Time Critical Care Time: No Discharge Plan Discharge Clinical Impression: Migraine headache Patient Disposition: Home, Self-Care Instructions: Migraine Headache (ED) Additional Instructions: You have been evaluated in the Emergency Department today for headache. Your evaluation did not show evidence of medical conditions requiring emergent intervention at this time, and your pain improved with medication in the ED. Sometimes it is difficult to explain the cause of headache but the negative workup today is reassuring. I want you to take the following medication as needed for headache: ? - Excedrin migraine Please follow up with your primary care physician within two days. Follow up with your neurosurgeon, Dr. Dangelo. Return to the Emergency Department if you experience worsening or uncontrolled pain, vision changes, recurrent vomiting, difficulty with normal activities, abnormal behavior, difficulty walking, numbness, weakness, or any other concerning symptoms. Prescriptions: New sxclsrm-jvurqixcxsstm-qnhjojxp [Excedrin Migraine] 250-250-65 mg tablet 1 tab PO Q6H PRN (Reason: headache) Qty: 7 0RF No Action ondansetron 4 mg tablet,disintegrating 4 mg PO Q6H PRN (Reason: nausea and vomiting) Qty: 10 0RF omeprazole 40 mg capsule,delayed release(DR/EC) 40 mg PO DAILY Qty: 30 0RF azithromycin 250 mg tablet 250 mg PO DAILY 4 Days Qty: 4 0RF Rx Instructions: start on day 2 of therapy prednisone 20 mg tablet 40 mg PO DAILY 4 Days Qty: 8 0RF azithromycin 250 mg tablet 250 mg PO DAILY 4 Days Qty: 4 0RF Rx Instructions: start on day 2 of therapy prednisone 20 mg tablet 20 mg PO DAILY Qty: 12 0RF Rx Instructions: Take 3 tablets by mouth daily for 2 days then take 2 tablets by mouth daily for 3 days. budesonide-formoterol 160-4.5 mcg/actuation HFA aerosol inhaler 2 puff inhalation BID Qty: 10.2 0RF Referrals: Jann Agrawal MD [Primary Care Provider, Internal Medicine] Interventions: ED Discharge Assessment Last Done: 08/11/25 10:16 Discharge Date/Time: 08/11/25 10:17 Print Language: Bahamian
[2025-08-11 08:46] VITALS: BP 121/73; PULSE 81; RESP 18; O2SAT 96
[2025-08-11 08:50] LABS: Resp Syncy Virus RNA Qual PCR NEGATIVE (Negative); SARS COV2 PCR INHOUSE NEGATIVE (Negative)
[2025-08-11 10:16] VITALS: BP 123/78; PULSE 84; RESP 18; TEMP 36.7; O2SAT 98
--- NOTE | 2025-08-11 10:18 | PC.NURSE ---
discharged pt for Maureen the primary nurse.
--- OUTSIDE RECORDS SUMMARY | 2025-08-11 10:27 | XMS_ITS | Clinical Summary ---
Author Organization [facility] [address] [place] [address] [place] [phone] Phone Care Team Providers Care Supervisor Painting Shipyard Name Role Phone Jann Agrawal MD Primary [...] Care Team Description 05/31/2025 Telephone Pulmonology - [address] [place] [address] Saida Du MD from Last 3 Months Surgical History Surgery Date Site/Laterality Comments SECTION PROCEDURE: ME DELIVERY ONLY HEMORRHOID SURGERY PROCEDURE: ME INCISION THROMBOSED HEMORRHOID EXTERNAL OTHER SURGICAL HISTORY PROCEDURE: ME CRANIOPLASTY SKULL DEFECT REPARATIVE BRAIN SURG; COMMENT: [...] Care Team (Late st Contact Info) Description 09/27/2025 2:30 PM EST Office Visit [facility] [address] [place] [address] Bart Us, ITZ [address] [place] [address] 11/03/2025 8:20 AM EDT Office Visit [facility] [address] [facility] [address] [place] [phone] Soy Elizabeth MD [address] [place] [address] Dr [address] [place] [phone] 12/09/2025 3:00 PM EDT Office Visit [facility] [address] [place] [address] Jann Agrawal MD [address] [place] [address] Health Maintenance Due Date Last Done Comments [...] mg/dL LAB CHEMISTRY METHOD 08/27/2024 6:[address] [facility] Triglycerides 130 0 - 150 mg/dL LAB CHEMISTRY METHOD 08/27/2024 6:[address] [facility] HDL 64 >=40 mg/dL LAB CHEMISTRY METHOD 08/27/2024 6:[address] [facility] LDL Calculated 76 0 - 100 mg/dL LAB CHEMISTRY METHOD 08/27/2024 6:[address] [facility] VLDL Cholesterol Yordy 26 mg/dL LAB CHEMISTRY METHOD 08/27/2024 6:[address] [facility] Non HDL Chol. (LDL+VLDL) 102 <145 mg/dL LAB CHEMISTRY METHOD 08/27/2024 6:[address] [facility] Chol/HDL Ratio 2.6 0.0 - 4.4 LAB CHEMISTRY METHOD 08/27/2024 6:[address] [facility] Blood Venous blood specimen / Unknown Venipuncture / Unknown 08/27/2024 10:48 AM EST 08/27/2024 10:48 AM EST us Jann Agrawal MD LAB BLOOD ORDERABLES Final Result [facility] [address] [place] [address], * Cervical Cancer Screening: HPV (11/15/2023) Cervical Cancer Screening: HPV negative interpretation abstracted Historical Provider HEALTH MAINTENANCE Final Result * Hepatitis C Screening (09/02/2018) Hepatitis C Screening abstracted Historical Provider HEALTH MAINTENANCE Final Result from Last 3 Months or Most Recently Relevant to Health Maintenance Insurance MEDICAID - [place] MEDICARE Care Teams Supervisor Painting Shipyard Relationship Specialty Start Date End Date Jann Agrawal MD [address] [facility] [address] PCP - General 11/12/23
--- OUTSIDE RECORDS SUMMARY | 2025-08-11 10:27 | XMS_ITS | Clinical Summary ---
Author Organization [facility] Address [address] [facility] [address] [place] [phone] Phone Care Team Providers Care Operations Chief Name Role Phone Jann Agrawal MD Primary Care Provider [phone] Allergies No known active allergies Social History [...] topic Medical Devices Not on file [place] [address] [address] MEDICARE PPO BLUE [place]PLAC[place] [address] MEDICARE PART A & B [facility] MEDICARE PPO BLUE REPLACEMENT [address] [place], [place] [address]HEALTH MEDICARE PART A & B [place] MEDICARE P[place] BLUE REPLACEMENT Member Subscriber Plan / Payer ( fective 2013-Present) Name:Tanisha Garg Relation to Subscriber:Self Name:Tanisha Garg Payer ID:[id number] (NAIC) Type:Medicare Address: [facility] [id number] & B [place] MED[place] PPO BLUE REPLACEMENT [facility] MEDICARE PART A & [place] [address] [address] MEDICARE PPO BLUE REPLACEMENT [facility] MEDICARE PART A & [place] [address] [address] MEDICARE PPO BLUE REPLACEMENT [facility] MEDICARE PART A & B Care Teams Operations Chief Relationship Specialty Start Date End Date Jann Agrawal MD [address] [place] [address] PCP - General 01/07/25 Additional Source Comments The information contained in this document represents components of the legal health record. It is not the complete legal health record.[facility]
--- OUTSIDE RECORDS SUMMARY | 2025-08-11 10:27 | XMS_ITS | Encounter Summary ---
Author Organization [facility] Address [address] [facility] [address] [place] [phone] Phone Care Team Providers Care Soda Clerk Name Role Phone Jann Agrawal MD Primary Care Provider [phone] Encounter Details Date Type Department Care Team (Late st Contact Info) Description 01/07/2025 Procedure Pass [facility], Ct Scan - [address] [address] Social History Tobacco Use Types Packs/Day Years [...] on filedocumented in this encounter Care Teams Soda Clerk Relationship Specialty Start Date End Date Jann Agrawal MD [address] [place] [address] PCP - General 01/07/25 documented as of this encounter Additional Source Comments The information contained in this document represents components of the legal health record. It is not the complete legal health record.[facility]
--- OUTSIDE RECORDS SUMMARY | 2025-08-11 10:27 | XMS_ITS | Clinical Summary ---
Author Organization [address] Address [address] [place] [phone] Phone Care Team Providers Care Tobacco Sampler Name Role Phone Jann Agrawal MD Primary [...] vaccine 03/12/2025 07/07/2024, 11/09/2023 Covid-19 vaccine series ( season) 2025 Meningococcal B Vaccine Aged Out No l onger eligible based on patient's age to complete this topic Meningococcal Vaccine Aged Out No susana kesha eligible based on patient's age to complete this topic Pneumococcal Vaccine (2 - 49 years) Aged Out No longer eligible b ased on patient's age to complete this topic Insurance [id number] MEDICAID [facility] [id number] MEDICAID [facility] [id number] MEDICAID [facility] Care Teams Tobacco Sampler Relationship Specialty Start Date End Date Jann Agrawal MD [address] [place] [address] PCP - General Internal Medicine 12/31/23
== END 2025-08-11 10:17 | disposition home or self-care (01) ==
PROVIDERS: Emergency Provider Emergency Medicine Emergency Medical Services; PCP Internal Medicine
DX: G43.909 Migraine, unspecified, not intractable, without status migrainosus (principal); Z79.899 Other long term (current) drug therapy
CPT/HCPCS: 70450; 74018; 80053; 82248; 83690; 85025; 87637; 96374; 96375; 99284; 99285; J1200; J1885; J2765

== ENCOUNTER → 2025-08-11 08:33 | Outpatient (BNV) | payer MEDICARE, MEDICAID, SELFPAY | PROVIDERS: Emergency Provider Emergency Medicine Emergency Medical Services; PCP Internal Medicine; Visit Provider Radiology Diagnostic Radiology | DX: R51.9 Headache, unspecified (principal); R10.9 Unspecified abdominal pain; Z98.2 Presence of cerebrospinal fluid drainage device | CPT/HCPCS: 70450; 74018 ==